=== PATIENT | female | born 1940 | race Caucasian/White ===

== ENCOUNTER → 2016-03-13 | Outpatient (CLI) | payer MEDICARE ==
--- NOTE | 2016-03-13 14:32 | US ---
EXAMINATION TYPE: US kidneys/renal and bladder DATE OF EXAM: 03/13/2016 2:06 PM COMPARISON: US in PACS abdomen June 25, 2015 CLINICAL HISTORY: N28.1 Cyst of Kidney. Known right kidney cyst EXAM MEASUREMENTS: Right Kidney: 11.6 x 3.9 x 4.2 cm Left Kidney: 11.2 x 4.0 x 4.5 cm TECHNOLOGIST IMPRESSION: wnl Right Kidney: Cyst lateral= 3.0 x 2.4 x 2.9 cm Left Kidney: wnl Bladder: wnl Bilateral Jets seen: Only left jet visualized There is no evidence for hydronephrosis at this point in time. No new masses are identified. The urinary bladder is anechoic. Distal left ureter jet is seen. Right jet is not clearly identified. IMPRESSION: Stable 3.0 cm simple appearing cyst right kidney.
--- NOTE | 2016-03-18 12:12 | P.ARTDOP ---
Arterial Doppler LOWER EXTREMITY ARTERIAL DOPPLER: DATE OF SERVICE: 03/13/2016 Reason for study: []. Doppler waveforms: Multiphasic throughout on the right. Waveforms not done on the left.. Pulse volume recording: Normal configuration of the right. Not done on the left.. Pressure gradients: None noted. Ankle-brachial indices: Greater than 1 bilaterally. Toe pressures: [] on the right, [] on the left Impression: Normal study as obtained. Lack of waveforms limited study..
== END | disposition home or self-care (01) ==
LOC: RADUSWWP 13:17
PROVIDERS: ATTEND Family Medicine
DX: N28.1 Cyst of kidney, acquired (principal)
CPT/HCPCS: 76770; 93923

== ENCOUNTER → 2016-08-26 | Outpatient (CLI) | payer MEDICARE ==
[2016-08-26 10:31] LABS: ALT 50 U/L (9-52); AST 35 U/L (14-36); Alkaline Phosphatase 151 U/L (38-126); Anion Gap 11 mmol/L; Blood Urea Nitrogen 24 mg/dL (7-17); Calcium 10.1 mg/dL (8.4-10.2); Carbon Dioxide 26 mmol/L (22-30); Chloride 105 mmol/L (98-107); Cholesterol 198 mg/dL (<200); Glucose 115 mg/dL (74-99); HDL Cholesterol 72 mg/dL (40-60); Non-African American GFR(MDRD) 53 (>60 ml/min/1.73 sqM); Sodium 142 mmol/L (137-145); Total Bilirubin 0.6 mg/dL (0.2-1.3); Total Protein 7.6 g/dL (6.3-8.2); Triglycerides 71 mg/dL (<150)
[2016-08-26 16:00] LABS: Urine Creatinine 75.2 mg/dL
== END | disposition home or self-care (01) ==
LOC: LABWHC1 09:25
PROVIDERS: ATTEND Internal Medicine Endocrinology, Diabetes & Metabolism
DX: E11.65 Type 2 diabetes mellitus with hyperglycemia (principal)
CPT/HCPCS: 36415; 80053; 80061; 82043; 82570

== ENCOUNTER → 2017-03-18 | Outpatient (CLI) | payer MEDICARE ==
[2017-03-18 10:44] LABS: ALT 41 U/L (9-52); AST 44 U/L (14-36); Albumin 4.1 g/dL (3.5-5.0); Alkaline Phosphatase 129 U/L (38-126); Anion Gap 12 mmol/L; Blood Urea Nitrogen 15 mg/dL (7-17); Calcium 10.1 mg/dL (8.4-10.2); Carbon Dioxide 28 mmol/L (22-30); Chloride 103 mmol/L (98-107); Cholesterol 186 mg/dL (<200); Glucose 198 mg/dL (74-99); HDL Cholesterol 60 mg/dL (40-60); LDL Cholesterol,Calculated 93 mg/dL (0-99); Sodium 143 mmol/L (137-145); Total Bilirubin 0.9 mg/dL (0.2-1.3); Total Protein 7.3 g/dL (6.3-8.2); Triglycerides 163 mg/dL (<150)
[2017-03-18 15:54] LABS: Hemoglobin A1C 8.5 % (4.0-6.0)
== END | disposition home or self-care (01) ==
LOC: LABWHC1 09:34
PROVIDERS: ATTEND Internal Medicine Endocrinology, Diabetes & Metabolism
DX: E11.65 Type 2 diabetes mellitus with hyperglycemia (principal)
CPT/HCPCS: 36415; 80053; 80061; 82043; 82570; 83036

== ENCOUNTER → 2017-04-01 | Outpatient (CLI) | payer MEDICARE ==
--- NOTE | 2017-04-01 13:46 | XR ---
EXAMINATION TYPE: XR chest 2V DATE OF EXAM: 04/01/2017 COMPARISON: NONE INDICATION: Acute bronchitis cough and congestion over week TECHNIQUE: Frontal and lateral views of the chest are obtained. FINDINGS: The heart size is normal. The pulmonary vasculature is normal. The lungs are clear. There is some hyperinflation and increased AP diameter. Early emphysematous ember nges should be considered. IMPRESSION: 1. No acute pulmonary process.
== END | disposition home or self-care (01) ==
LOC: RADXRMAIN 13:11
PROVIDERS: ATTEND Family Medicine
DX: J20.9 Acute bronchitis, unspecified (principal)
CPT/HCPCS: 71046

== ENCOUNTER → 2017-05-31 | Outpatient (CLI) | payer MEDICARE ==
--- NOTE | 2017-06-01 08:08 | US ---
EXAMINATION TYPE: US kidneys/renal and bladder DATE OF EXAM: 05/31/2017 COMPARISON: NONE CLINICAL HISTORY: N28.1 CYST OF KIDNEY. EXAM MEASUREMENTS: Right Kidney: 11.3 x 3.7 x 4.6 cm Left Kidney: 10.7 x 5.2 x 4.7 cm Right Kidney: cyst noted measuring 3.5 x 2.9 x 3.6 Left Kidney: No hydronephrosis or masses seen Bladder: not fully distended, patient felt like her bladder was full and needed to void Bilateral Jets seen: no There is no evidence for hydronephrosis at this point in time. No nephrolithiasis is seen. IMPRESSION: Simple appearing cyst right kidney.
== END | disposition home or self-care (01) ==
LOC: RADUSWWP 16:05
PROVIDERS: ATTEND Family Medicine
DX: N28.1 Cyst of kidney, acquired (principal)
CPT/HCPCS: 76770

== ENCOUNTER → 2017-09-16 | Outpatient (CLI) | payer MEDICARE ==
--- NOTE | 2017-09-16 15:25 | XR ---
EXAMINATION TYPE: XR lumbar spine 2 or 3V DATE OF EXAM: 09/16/2017 CLINICAL HISTORY: Back pain TECHNIQUE: Frontal and lateral images of the lumbar spine were obtained. COMPARISON: None FINDINGS: There are 6 lumbar type vertebral bodies identified. There is grade 1 anterolisthesis of L 4 on L5, likely due to extensive facet arthropathy. Vertebral body heights appear maintained. Multil evel moderate degenerative changes seen as endplate sclerosis, intervertebral disc space narrowing, a nterior osteophytes, and advanced facet arthropathy. Cholecystectomy clips are noted within the right upper quadrant. Visualized bowel is nondilated. Mild symmetric sclerosis of the sacroiliac joints ar e seen. The overlying soft tissue appears unremarkable. IMPRESSION: 1. No acute fracture is seen in the lumbar spine. 2. Grade 1 anterolisthesis of L4 on L5, likely due to advanced facet arthropathy. 3. Moderate multilevel degenerative changes of the lumbar spine with suspicion for multilevel neural foraminal narrowing that could be assessed with MRI.
== END | disposition home or self-care (01) ==
LOC: RADXRMAIN 13:59
PROVIDERS: ATTEND Family Medicine
DX: M43.16 Spondylolisthesis, lumbar region (principal); M47.816 Spondylosis without myelopathy or radiculopathy, lumbar region; M46.86 Other specified inflammatory spondylopathies, lumbar region; M25.552 Pain in left hip
CPT/HCPCS: 72100

== ENCOUNTER → 2017-09-23 | Outpatient (CLI) | payer MEDICARE ==
[2017-09-23 10:13] LABS: Albumin 4.1 g/dL (3.5-5.0); Potassium 5.6 mmol/L (3.5-5.1); Total Bilirubin 0.7 mg/dL (0.2-1.3); Total Protein 7.4 g/dL (6.3-8.2)
== END | disposition home or self-care (01) ==
LOC: LABWHC1 08:52
PROVIDERS: ATTEND Internal Medicine Endocrinology, Diabetes & Metabolism
DX: E11.65 Type 2 diabetes mellitus with hyperglycemia (principal)
CPT/HCPCS: 36415; 80053; 80061; 82043; 82570; 83036

== ENCOUNTER → 2018-02-18 | Outpatient (CLI) | payer MEDICARE ==
[2018-02-18 17:45] LABS: Albumin 4.4 g/dL (3.80-4.90); Albumin/Globulin Ratio 2.2 (1.20-2.10); Anion Gap 9.5 mmol/L (4.00-12.00); Calcium 9.7 mg/dL (8.7-10.3); Carbon Dioxide 22.5 mmol/L (21.6-31.8); LDL Cholesterol,Calculated 95.6 mg/dL (0.0-131.0); Potassium 5.5 mmol/L (3.5-5.5); Total Bilirubin 0.5 mg/dL (0.3-1.2); Total Protein 6.4 g/dL (6.2-8.2); VLDL Calculation 29.4 mg/dL (5.00-40.00)
== END | disposition home or self-care (01) ==
LOC: LABWHC1 09:39
PROVIDERS: ATTEND Internal Medicine Endocrinology, Diabetes & Metabolism
DX: E11.65 Type 2 diabetes mellitus with hyperglycemia (principal)
CPT/HCPCS: 36415; 80053; 80061; 83036

== ENCOUNTER → 2018-03-01 | Outpatient (CLI) | payer MEDICARE ==
--- NOTE | 2018-03-01 15:36 | XR ---
EXAMINATION TYPE: XR abdomen 2V DATE OF EXAM: 03/01/2018 COMPARISON: NONE HISTORY: Pain TECHNIQUE: One view abdominal series FINDINGS: The osseous structures are intact. The bowel gas pattern is nonspecific. Surgical clips in right upp er quadrant. Hypertrophic and degenerative change of the spine. Basilar consolidation is nonspecific. Arthropathy of the hips. IMPRESSION: 1. Nonspecific abdomen. Right basilar atelectasis favored over infiltrate correlate clinically.
== END | disposition home or self-care (01) ==
LOC: RADXRMAIN 14:20
PROVIDERS: ATTEND Physician Assistant Medical
DX: K59.09 Other constipation (principal)
CPT/HCPCS: 74019

== ENCOUNTER → 2018-05-16 | Outpatient (CLI) | payer MEDICARE ==
[2018-05-16 16:35] LABS: Albumin 4.4 g/dL (3.80-4.90); Albumin/Globulin Ratio 1.63 (1.60-3.17); Anion Gap 6.3 mmol/L (4.00-12.00); Calcium 10.1 mg/dL (8.7-10.3); Carbon Dioxide 28.7 mmol/L (21.6-31.8); Globulin 2.7 g/dL (1.6-3.3); Magnesium 1.8 mg/dL (1.5-2.4); Potassium 5.5 mmol/L (3.5-5.5); Total Bilirubin 0.8 mg/dL (0.3-1.2); Total Protein 7.1 g/dL (6.2-8.2)
== END | disposition home or self-care (01) ==
LOC: LABWHC1 09:47
PROVIDERS: ATTEND Internal Medicine Endocrinology, Diabetes & Metabolism
DX: E11.65 Type 2 diabetes mellitus with hyperglycemia (principal); G47.62 Sleep related leg cramps
CPT/HCPCS: 36415; 80053; 83036; 83735; 84443

== ENCOUNTER → 2018-05-26 | Outpatient (CLI) | payer MEDICARE ==
--- NOTE | 2018-05-27 10:47 | BD ---
EXAMINATION TYPE: Axial Bone Density DATE OF EXAM: 05/26/2018 COMPARISON: 12.13.2015 CLINICAL HISTORY: Postmenopausal female. Osteoporosis screening. Height: 62 Weight: 206.6 FRAX RISK QUESTIONS: Alcohol (3 or more units per day): no Family History (Parent hip fracture): yes Glucocorticoids (More than 3mos): no (Ex: prednisone, prednisolone, methylprednisolone, dexamethasone, and hydrocortisone). History of Fracture in Adulthood: yes Secondary Osteoporosis: 1. Type 1 Diabetes: no 2. Hyperthyroidism: no 3. Menopause before 45: no 4. Malnutrition: no 5. Chronic liver disease: no Rheumatoid Arthritis: no Current Tobacco Use: no RISK FACTORS HISTORY OF: Family History of Osteoporosis: yes Active: sometimes Diet low in dairy products/other sources of calcium: yes Postmenopausal woman: age 54 Lost more than 2 inches in height since high school: no MEDICATIONS: type 2 diabetic meds, omeprazole, water pill, vitamins, losartin Additional History: EXAM MEASUREMENTS: Bone mineral densitometry was performed using the [employer]. Bone mineral density as measured about the Lumbar spine is: ----- L1-L4(G/cm2): 1.284 T Score Values are as follows: ----- L2: 0.1 ----- L3: 1.1 ----- L4: 0.6 ----- L1-L4: 0.9 Bone mineral density has: decreased -3.4 % since study of: 12.13.2015 Bone mineral density about the R hip (g/cm2): 0.866 Bone mineral density about the L hip (g/cm2): 0.849 T Score values are as follows: -----R Neck: -1.2 -----L Neck: -1.4 -----R Total: -0.4 -----L Total: -0.7 Bone mineral density has: decreased -7.9 % since study of: 12.13.2015 IMPRESSION: Osteopenia (T Score between -2.5 and -1). There is slightly increased risk of fracture and the patient may be considered for treatment. Re-Screen 2-5 years. NOTE: T-SCORE=SD OF THE YOUNG ADULT MEAN.
== END | disposition home or self-care (01) ==
LOC: RADBDWWP 14:10
PROVIDERS: ATTEND Family Medicine
DX: M85.80 Other specified disorders of bone density and structure, unspecified site (principal); Z78.0 Asymptomatic menopausal state
CPT/HCPCS: 77080

== ENCOUNTER → 2018-12-30 | Outpatient (CLI) | payer MEDICARE ==
[2018-12-30 16:25] LABS: African American GFR (CKD) 50.1 (60.0-200.0); Albumin 4.4 g/dL (3.80-4.90); Albumin/Globulin Ratio 1.83 (1.60-3.17); Anion Gap 6.2 mmol/L (4.00-12.00); BUN/Creat Ratio 16.67 Ratio (12.00-20.00); Calcium 10.1 mg/dL (8.7-10.3); Carbon Dioxide 27.8 mmol/L (21.6-31.8); Chol/HDL Ratio 2.71; Globulin 2.4 g/dL (1.6-3.3); LDL Cholesterol,Calculated 93.4 mg/dL (0.0-131.0); Non-African American GFR(CKD) 43.3 (60.0-200.0); Potassium 5.7 mmol/L (3.5-5.5); Total Bilirubin 0.5 mg/dL (0.3-1.2); Total Protein 6.8 g/dL (6.2-8.2); VLDL Calculation 22.6 mg/dL (5.00-40.00)
== END | disposition home or self-care (01) ==
LOC: LABWHC1 10:27
PROVIDERS: ATTEND Orthopaedic Surgery
DX: S72.435D Nondisplaced fracture of medial condyle of left femur, subsequent encounter for closed fracture with routine healing (principal); S83.242D Other tear of medial meniscus, current injury, left knee, subsequent encounter; S83.282D Other tear of lateral meniscus, current injury, left knee, subsequent encounter; S83.412D Sprain of medial collateral ligament of left knee, subsequent encounter; E55.9 Vitamin D deficiency, unspecified; M17.12 Unilateral primary osteoarthritis, left knee; I10 Essential (primary) hypertension; Z68.38 Body mass index [BMI] 38.0-38.9, adult; E11.65 Type 2 diabetes mellitus with hyperglycemia
CPT/HCPCS: 36415; 80053; 80061; 82306; 83036; 84443

== ENCOUNTER → 2019-09-29 | Outpatient (CLI) | payer MEDICARE ==
--- NOTE | 2019-09-29 19:00 | ECHOF ---
Referral Reason:R60.9 edema, R06.02 Shortness of breath MEASUREMENTS -------- HEIGHT: 154.9 cm WEIGHT: 96.2 kg BP: RVIDd: 2.9 cm (< 3.3) IVSd: 1.2 cm (0.6 - 1.1) LVIDd: 3.0 cm (3.9 - 5.3) LVPWd: 1.4 cm (0.6 - 1.1) IVSs: 1.3 cm LVIDs: 2.7 cm LVPWs: 1.6 cm LA Diam: 3.3 cm (2.7 - 3.8) LAESV Index (A-L): 20.24 ml/m Ao Diam: 3.0 cm (2.0 - 3.7) AV Cusp: 1.8 cm (1.5 - 2.6) LA Diam: 3.8 cm (2.7 - 3.8) MV EXCURSION: 17.007 mm (> 18.000) MV EF SLOPE: 118 mm/s (70 - 150) EPSS: 0.2 cm MV E Joel: 0.60 m/s MV DecT: 232 ms MV A Joel: 1.07 m/s MV E/A Ratio: 0.56 RAP: 5.00 mmHg RVSP: 30.70 mmHg FINDINGS -------- Sinus rhythm. This was a technically adequate study. The left ventricular size is normal. There is mild concentric left ventricular hypertrophy. Overa ll left ventricular systolic function is normal with, an EF between 55 - 60 %. The right ventricle is normal in size. The left atrial size is normal. The right atrial size is normal. There is mild aortic valve sclerosis. There is no evidence of aortic regurgitation. Mild mitral annular calcification present. Mild mitral regurgitation is present. Mild tricuspid regurgitation present. Right ventricular systolic pressure is normal at < 35 mmHg. There is no pulmonic regurgitation present. The aortic root size is normal. Echo free space indicative of a pericardial fat pad. CONCLUSIONS -------- 1. The left ventricular size is normal. 2. There is mild concentric left ventricular hypertrophy. 3. Overall left ventricular systolic function is normal with, an EF between 55 - 60 %. 4. The left atrial size is normal. 5. The right atrial size is normal. 6. There is mild aortic valve sclerosis. 7. Mild mitral annular calcification present. 8. Mild mitral regurgitation is present. 9. Mild tricuspid regurgitation present. FINISHER SCREWDOWN: Kasey Mclean RDCS
== END | disposition home or self-care (01) ==
LOC: RADECHMAIN 13:53
PROVIDERS: ATTEND Family Medicine
DX: I08.1 Rheumatic disorders of both mitral and tricuspid valves (principal)
CPT/HCPCS: 93306

== ENCOUNTER 2020-04-17 11:51 | Emergency (ER) | payer MEDICARE, OTHER ==
[2020-04-17 12:05] VITALS: RESP 18
[2020-04-17] MEDS ORDERED: ACETAMINOPHEN TAB 500 MG TAB PO STA (12:43)
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
[2020-04-17 21:49] VITALS: BP 169/95; PULSE 97; TEMP 98
== END 2020-04-17 14:31 | disposition home or self-care (01) ==
LOC: EC 11:51
DX: S52.514A Nondisplaced fracture of right radial styloid process, initial encounter for closed fracture (principal); S62.115A Nondisplaced fracture of triquetrum [cuneiform] bone, left wrist, initial encounter for closed fracture; S20.211A Contusion of right front wall of thorax, initial encounter; E11.9 Type 2 diabetes mellitus without complications; I10 Essential (primary) hypertension; G20 Parkinson's disease; Z79.4 Long term (current) use of insulin; Z79.899 Other long term (current) drug therapy; Z88.2 Allergy status to sulfonamides; Z88.5 Allergy status to narcotic agent; Z88.8 Allergy status to other drugs, medicaments and biological substances; Z91.013 Allergy to seafood; Z91.040 Latex allergy status; Z90.49 Acquired absence of other specified parts of digestive tract; Z90.710 Acquired absence of both cervix and uterus; Z98.51 Tubal ligation status; Z91.041 Radiographic dye allergy status; V43.52XA Car driver injured in collision with other type car in traffic accident, initial encounter; Y92.410 Unspecified street and highway as the place of occurrence of the external cause
CPT/HCPCS: 29125; 99284

== ENCOUNTER 2021-07-31 18:46 | Inpatient (IN) | payer MEDICARE ==
[2021-07-31] MEDS ORDERED: fentaNYL (PF) 50 MCG/ML 2 ML AMP IVP STA (18:55)
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
[2021-07-31] MEDS ORDERED: fentaNYL (PF) 50 MCG/ML 2 ML AMP IV STA (19:41)
[2021-07-31] MEDS ORDERED: LORazepam 2 MG/ML INJ IV STA (19:41)
[2021-07-31 20:36] LABS: Glucose,Whole Blood 207 mg/dL (70-110)
--- NOTE | 2021-07-31 20:36 | XR ---
EXAMINATION TYPE: XR shoulder complete BILAT DATE OF EXAM: 07/31/2021 7:38 PM INDICATION: Patient age:Female; 80 years old; Reason for study: Trauma; COMPARISON: None TECHNIQUE: The right shoulder was examined in the internal/external and axillary views. FINDINGS: Right: Acute fracture of the right humerus greater tuberosity. Anterior inferior dislocation also fel t to be present. Left: Comminuted fractures of the proximal humerus with suspected intra-articular extension. IMPRESSION: 1. Suspected anterior inferior right humerus dislocation with Hill-Sachs fracture with a large bony fragment of right greater tuberosity. 2. Left proximal humerus fracture with suspected intra-articular extension.
[2021-07-31] MEDS ORDERED: NALOXONE 0.4 MG/ML 1 ML VIAL IV PRN (21:19)
[2021-07-31] MEDS ORDERED: ONDANSETRON 4 MG/2 ML VIAL IVP PRN (21:19)
--- NOTE | 2021-07-31 21:40 | XR ---
EXAMINATION TYPE: XR femur LT, XR Hip LT and AP Pelvis DATE OF EXAM: 07/31/2021 8:59 PM INDICATION: Patient age:Female; 80 years old; Reason for study: Trauma; COMPARISON: None TECHNIQUE: The left femur was examined in frontal, lateral and oblique. The left hip was evaluated in frontal and lateral views with AP of the pelvis. FINDINGS: Distal left femur spiral comminuted fracture without intra-articular extension. Predominant ly involves the distal diaphysis and metadiaphysis portions. There is approximately 4.4 cm of shorten ing/displacement with anterior lateral displacement. There is mild soft tissue swelling. There is osteoarthritic changes of the hips joint space narrowing and osteophyte formation. Multileve l disc degeneration changes of the spine. Pelvic fluid present. Nonobstructive bowel gas pattern. IMPRESSION: 1. Acute left distal femur spiral comminuted fracture with shortening and anterior lateral displacem ent. 2. Moderate bilateral osteoarthrosis of the hips.
--- NOTE | 2021-07-31 21:43 | XR ---
EXAMINATION TYPE: XR chest 1V DATE OF EXAM: 07/31/2021 8:59 PM COMPARISON: Chest radiographs from 03/30/2019 TECHNIQUE: XR chest 1V Frontal view of the chest. CLINICAL INDICATION:Female, 80 years old with history of Fall; FINDINGS: Lungs/Pleura: There is no evidence of pleural effusion, focal consolidation, or pneumothorax. Pulmonary vascularity: Unremarkable. Heart/mediastinum: Cardiomediastinal silhouette is prominent in size. Musculoskeletal: No acute osseous pathology. IMPRESSION: No acute cardiopulmonary disease/process.
[2021-07-31] MEDS: HYDROmorphone 1 MG/ML 1 ML SYRINGE IVP PRN (22:45)
[2021-07-31] MEDS: SODIUM CHLORIDE 0.9% 1,000 ML IV SCH (22:55)
[2021-07-31 23:11] LABS: Basophils # (A) 0.1 k/uL (0-0.2); Basophils % (A) 0 %; Eosinophils % (A) 0 %; HCT 32.3 % (34.0-46.0); HGB 10.5 gm/dL (11.4-16.0); Hypochromasia Slight; Lymphocytes % (A) 5 %; MCH 27.6 pg (25.0-35.0); MCHC 32.4 g/dL (31.0-37.0); Mean Platelet Volume 8.1; Monocytes # (A) 0.5 k/uL (0-1.0); Monocytes % (A) 3 %; Neutrophils # (A) 17.5 k/uL (1.3-7.7); Neutrophils % (A) 91 %; Platelet Count 181 k/uL (150-450); RDW 13.6 % (11.5-15.5); WBC 19.2 k/uL (3.8-10.6)
[2021-07-31 23:22] LABS: Albumin 3.6 g/dL (3.5-5.0); Calcium 8.7 mg/dL (8.4-10.2); Magnesium 1.3 mg/dL (1.6-2.3); Potassium 4.3 mmol/L (3.5-5.1); Total Bilirubin 0.5 mg/dL (0.2-1.3); Total Protein 6.5 g/dL (6.3-8.2)
--- NOTE | 2021-08-01 00:18 | CT ---
EXAMINATION TYPE: CT femur LT wo con DATE OF EXAM: 07/31/2021 COMPARISON: None HISTORY: FALL, FX CT DLP: 1260.1 mGycm Automated exposure control for dose reduction was used. Images obtained from the mid ileum to the proximal tibia with no contrast. There is oblique fracture distal shaft of the femur with comminution. There is 3.5 similar anterior d isplacement of the distal fragment. The knee joint is anatomic. Hip joint is anatomic. There is mild acetabular spurring. IMPRESSION: Acute displaced comminuted fracture of the distal shaft of the femur as above.
--- NOTE | 2021-08-01 00:23 | CT ---
EXAMINATION TYPE: CT shoulder LT wo con DATE OF EXAM: 07/31/2021 COMPARISON: None. HISTORY: FALL ,FX CT DLP: 1180.6 mGycm Automated exposure control for dose reduction was used. Images obtained from the top of the shoulder to the mid shaft of the humerus with no contrast. There is impacted comminuted fracture of the left humeral neck. No dislocation. The scapula appears i ntact. The AC joint is intact. Visualized clavicle is intact. IMPRESSION: Acute mildly impacted humeral neck fracture with comminution.
--- NOTE | 2021-08-01 00:33 | CT ---
EXAMINATION TYPE: CT shoulder RT wo con DATE OF EXAM: 07/31/2021 COMPARISON: None HISTORY: FALL ,FX CT DLP: 1180.6 mGycm Automated exposure control for dose reduction was used. Images obtained from the top of the shoulder to the mid humerus without contrast. There is acute impa cted fracture of the right humeral neck. There is large chip fracture of the greater tuberosity of th e humerus without displacement. No dislocation at the glenohumeral joint. The scapula appears intact. The right upper ribs appear intact. AC joint is intact. IMPRESSION: Acute impacted right humeral neck fracture with comminution.
--- NOTE | 2021-08-01 01:33 | P.CONS ---
History of Present Illness - Reason for Consult Consult date: 07/31/21 - History of Present Illness The patient is an 80-year-old female with a PMH of type II DM, Parkinson's, and hypertension who presents to the emergency room after a fall. The patient reports that she was doing to dinner with her family when she tripped on an uneven surface at a restaurant, landing on her left shoulder. She reports severe pain in both of her shoulders immediately after the fall. She also reports injuring her left knee during this fall. Denied losing consciousness or head trauma. Reports that her pain is now a 2 out of 10, throughout her shoulders and her knee. Shoulder CTs in the emergency room revealed bilateral shoulder fractures as well as a left distal femur fracture. Chest x-ray was unr emarkable. Laboratory evaluation was remarkable for WBC count of 19.2, troponin 0.155, magnesium 1.3, glucose of 218. Patient denied experiencing chest discomfort cautions with, fever, chills, cough, nausea, vomiting, abdominal pain, diarrhea. Review of systems: Pertinent positives and negatives as discussed in HPI, a complete review of systems was performed and all other systems are negative. Physical examination: General: non toxic, no distress, appears at stated age, obese Derm: no unusual rashes/lesions, warm Head: atraumatic, normocephalic, symmetric Eyes: EOMI, no lid lag, anicteric sclera, pupils equal round reactive to light ENT: Nose and ears atraumatic Neck: No cervical lymphadenopathy, trachea midline, supple Mouth: no lip lesion, mucus membranes moist Cardiovascular: S1S2 reg, no murmur, positive dorsalis pedis pulse bilateral, no edema Lungs: CTA bilateral, no rhonchi, no rales, no accessory muscle use Abdominal: soft, nontender to palpation, no guarding Ext: No gross muscle atrophy, no contractures, tenderness noted of bilateral shoulders and her left knee, unable to assess strength as patient unwilling to move her arms and legs due to pain Neuro: CN II-XI grossly intact, no gross focal neuro deficits Psych: Alert, oriented, appropriate affect Assessment/plan Elevated troponin -Patient denied chest discomfort or shortness of breath -Suspected secondary to ongoing acute stressor -Obtain cardiology consult for cardiac surgical clearance -Cardiac monitoring Hypomagnesemia -Replace and monitor Leukocytosis -No signs of active infection at this time -Likely due to acute stressor Chronic conditions: Type II DM, hypertension, Parkinson's -Continue with home meds -Insulin sliding scale blood glucose monitoring Bilateral shoulder fractures with left distal femur fracture admitted -Defer management including pain control and DVT prophylaxis to the surgical service Past Medical History Past Medical History: Diabetes Mellitus, Hypertension Additional Past Medical History / Comment(s): Parkinson's History of Any Multi-Drug Resistant Organisms: None Reported Past Surgical History: Cholecystectomy, Hysterectomy, Tubal Ligation Past Psychological History: No Psychological Hx Reported Smoking Status: Never smoker Past Alcohol Use History: None Reported Past Drug Use History: None Reported - Past Family History Mother Family Medical History: Hyperlipidemia Medications and Allergies Home Medications Medication Instructions Recorded Confirmed Type Ascorbic Acid [Vitamin C] 500 mg PO DAILY 04/17/20 07/31/21 History Calcium Carbonate [Calcium] 600 mg PO PC-SUPPER 04/17/20 07/31/21 History Carbidopa-Levodopa 25-100 mg 1 tab PO DAILY@1400 04/17/20 07/31/21 History [Sinemet 25-100] Cholecalciferol [Vitamin D3 (25 25 mcg PO PC-SUPPER 04/17/20 07/31/21 History Mcg = 1000 Iu)] Glimepiride [Amaryl] 4 mg PO W/BRKFST 04/17/20 07/31/21 History Insulin Degludec [Tresiba 24 - 30 units SQ HS 04/17/20 07/31/21 History Flextouch U-100] Losartan Potassium 100 mg PO AC-BRKFST 04/17/20 07/31/21 History Omeprazole 20 mg PO DAILY 04/17/20 07/31/21 History Vitamin B Complex 1 cap PO DAILY 04/17/20 07/31/21 History metFORMIN HCL [Glucophage] 500 mg PO PC-BID 04/17/20 07/31/21 History sitaGLIPtin [Januvia] 50 mg PO PC-SUPPER 04/17/20 07/31/21 History Ascorbic Acid [Vitamin C] 500 mg PO DAILY 07/31/21 07/31/21 History Fish Oil/Dha/Epa [Fish Oil 1,200 1 cap PO PC-SUPPER 07/31/21 07/31/21 History mg Fish Oil] Spironolactone [Aldactone] 25 mg PO DAILY 07/31/21 07/31/21 History Allergies Allergy/AdvReac Type Severity Reaction Status Date / Time acetaminophen [From Vicodin] Allergy Rash/Hives Verified 07/31/21 22:28 codeine Allergy Rash/Hives Verified 07/31/21 22:28 hydrocodone [From Vicodin] Allergy Rash/Hives Verified 07/31/21 22:28 iodine Allergy Anaphylaxis Verified 07/31/21 22:28 latex Allergy Rash/Hives Verified 07/31/21 22:28 pioglitazone [From Actos] Allergy Rash/Hives Verified 07/31/21 22:28 shellfish derived [Shellfish] Allergy Rash/Hives Verified 07/31/21 22:28 Sulfa (Sulfonamide Allergy Rash/Hives Verified 07/31/21 22:28 Antibiotics) Physical Exam Vitals: Vital Signs Temp Pulse Resp BP Pulse Ox 07/31/21 22:00 90 186/87 07/31/21 20:02 88 219/98 07/31/21 18:52 97.9 F 60 18 147/73 95 Intake and Output 07/31/21 07/31/21 08/01/21 14:59 22:59 06:59 Other: Weight 90.718 kg Results CBC & Chem 7: 07/31/21 22:55 07/31/21 22:55 Labs: Abnormal Lab Results - Last 24 Hours (Table) 07/31/21 07/31/21 07/31/21 Range/Units 20:16 22:55 22:55 WBC 19.2 H (3.8-10.6) k/uL Hgb 10.5 L (11.4-16.0) gm/dL Hct 32.3 L (34.0-46.0) % Neutrophils # 17.5 H (1.3-7.7) k/uL Glucose 218 H (74-99) mg/dL POC Glucose (mg/dL) 207 H (70-110) mg/dL Magnesium 1.3 L (1.6-2.3) mg/dL
[2021-08-01] MEDS: HYDROmorphone 1 MG/ML 1 ML SYRINGE IVP PRN ×3 (01:35→21:41)
[2021-08-01] MEDS: MAGNESIUM SULFATE-D5W PMX 1 GM in DEXTROSE/WATER 1 100ML.BAG IVPB SCH ×2 (03:25→04:50)
[2021-08-01] MEDS: SODIUM CHLORIDE 0.9% 1,000 ML IV SCH ×3 (03:28→21:44)
[2021-08-01 07:44] LABS: African American GFR (CKD) 61 (>60 ml/min/1.73 sqM); Anion Gap 8 mmol/L; Blood Urea Nitrogen 19 mg/dL (7-17); Calcium 8.4 mg/dL (8.4-10.2); Carbon Dioxide 23 mmol/L (22-30); Chloride 107 mmol/L (98-107); Glucose 273 mg/dL (74-99); Magnesium 2.1 mg/dL (1.6-2.3); Non-African American GFR(CKD) 53 (>60 ml/min/1.73 sqM); Sodium 138 mmol/L (137-145)
[2021-08-01 07:49] LABS: Glucose,Whole Blood 264 mg/dL (70-110)
[2021-08-01 07:50] LABS: INR 1.1 (<1.2); Partial Thromboplastin Time 22.2 sec (22.0-30.0); Prothrombin Time 11.5 sec (9.0-12.0)
[2021-08-01] MEDS ORDERED: SPIRONOLACTONE 25 MG TAB PO SCH (09:00)
--- NOTE | 2021-08-01 09:48 | CA ---
Transthoracic Echo Report Name: Amy Sevilla Age: 80 Gender: F : 1940 Exam Date: 08/01/2021 07:55 Exam Location: [facility] Ht (in): 62 Wt (lb): 200 Ordering Physician: Suzanne Arana Attending/Referring Phys: Advertising Strategist Renate Fregoso RDCS Procedure CPT: Indications: elevated troponin. LV function Cardiac Hx: Technical Quality: Fair Contrast 1: Total Dose (mL): Contrast 2: Total Dose (mL): MEASUREMENTS (Male / Female) Normal Values 2D ECHO LV Diastolic Diameter PLAX 2.7 cm 4.2 - 5.9 / 3.9 - 5.3 cm LV Systolic Diameter PLAX 1.9 cm IVS Diastolic Thickness 1.3 cm 0.6 - 1.0 / 0.6 - 0.9 cm LVPW Diastolic Thickness 1.0 cm 0.6 - 1.0 / 0.6 - 0.9 cm LV Relative Wall Thickness 0.9 RV Internal Dim ED PLAX 3.2 cm LA Systolic Diameter LX 3.2 cm 3.0 - 4.0 / 2.7 - 3.8 cm LA Volume 49.0 cm??? 18 - 58 / 22 - 52 cm??? M-MODE Aortic Root Diameter MM 3.1 cm MV E Point Septal Separation 0.2 cm AV Cusp Separation MM 1.8 cm DOPPLER AV Peak Velocity 141.3 cm/s AV Peak Gradient 8.0 mmHg MV Area PHT 3.4 cm??? Mitral E Point Velocity 85.8 cm/s Mitral A Point Velocity 110.9 cm/s Mitral E to A Ratio 0.8 MV Deceleration Time 220.4 ms TR Peak Velocity 334.6 cm/s TR Peak Gradient 44.8 mmHg Right Ventricular Systolic Press 49.8 mmHg FINDINGS Left Ventricle Left ventricular ejection fraction is estimated at 55-60 %. Left ventricular cavity size normal. Mild concentric left ventricular hypertrophy. Right Ventricle Normal right ventricular size and function. Moderate pulmonary hypertension. Right Atrium Normal right atrial size. Left Atrium Normal left atrial size. No evidence for an atrial septal defect. Mitral Valve Mitral annular calcification. Mitral valve thickened. Mild mitral regurgitation. Aortic Valve Aortic valve sclerosis. Trileaflet aortic valve. No aortic valve stenosis or regurgitation. Tricuspid Valve Mild tricuspid regurgitation. Pulmonic Valve Structurally normal pulmonic valve. Pericardium Normal pericardium. No pericardial effusion. Aorta Normal size aortic root and proximal ascending aorta. CONCLUSIONS Normal LV size and systolic function without any segmental wall motion abnormalities Elevated RVSP Mild tricuspid and mitral regurgitation Previewed by: Dr. Enzo Jorge MD (Electronically Signed) Final Date: 01 August 2021 09:47
--- NOTE | 2021-08-01 10:27 | P.CRDCN ---
History of Present Illness History of present illness: HISTORY OF PRESENTING ILLNESS This is a pleasant 80-year-old female past medical history significant for hypertension, diabetes, Parkinson's disease. 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 We have been asked to see in consultation for elevated troponin. Patient presents emergency department after a mechanical fall at home. She reports that she was going to his inner with her family, she tripped on uneven surface and fell landing on her left shoulder. Family was there with her, she was on the ground for about 5 minutes. Her increased pain in her shoulders and left knee she presented to the emergency department via EMS. CT scans revealed right humeral neck fracture, left mildly impacted humeral neck fracture and acute displaced left femur fracture. Orthopedics has been consulted. She denies any symptoms prior or after the fall. She denies chest pain, shortness of breath, lightheadedness, dizziness, palpitations, nausea, vomiting, near syncope. She denies any consciousness. She denies any history of CAD, [place], stroke. She denies tobacco use. DIAGNOSTICS EKG reveals sinus tachycardia, HR 103, no significant ST-T wave abnormalities to suggest ischemia Troponins were elevated at 0.15, 0.23, sodium 138, potassium 5.0, BUN 19, serum creatinine 1.01, magnesium 2.1, WBC 19.2, and globin 10.5, platelets 181 Chest xray no acute cardiopulmonary process Echocardiogram revealed EF 5560 percent, mild concentric LVH, moderate pulmonary hypertension, mild tricuspid and mild mitral regurgitation, RVSP 49 mmHg Current home cardiac medications include spironolactone 25 mg daily, losartan 100 mg daily REVIEW OF SYSTEMS At the time of my exam: CONSTITUTIONAL: Denies fever or chills. CARDIOVASCULAR: Denies chest pain, shortness of breath, orthopnea, PND or palpitations. RESPIRATORY: Denies cough. GASTROINTESTINAL: Denies abdominal pain, diarrhea, constipation, nausea or vomiting. MUSCULOSKELETAL: Denies myalgias. NEUROLOGIC: Denies numbness, tingling, headacbe or weakness. ENDOCRINE: Denies fatigue, weight change, polydipsia or polyurina. GENITOURINARY: Denies burning, hematuria or urgency with micturation. HEMATOLOGIC: Denies history of anemia or bleeding. PHYSICAL EXAMINATION Blood pressure 165/70, heart rate 101, afebrile, oxygen saturations 95% on 2 L nasal cannula CONSTITUTIONAL: No apparent distress. HEENT: Head is normocephalic. Pupils are equal, round. Sclerae anicteric. Mucous membranes of the mouth are moist. No JVD. No carotid bruit. CHEST EXAMINATION: Lungs are clear to auscultation. No chest wall tenderness is noted on palpation or with deep breathing. HEART EXAMINATION: Regular rate and rhythm. S1, S2 heard. No murmurs, gallops or rub. ABDOMEN: Soft, nontender. Positive bowel sounds. EXTREMITIES: 2+ peripheral pulses, no lower extremity edema and no calf tenderness. NEUROLOGIC EXAMINATION: Patient is awake, alert and oriented x3. ASSESSMENT Elevated troponin, unclear etiology at this time Mechanical fall Bilateral humeral neck fractures Left femur fracture Hypertension Type 2 Diabetes Parkinson's disease PLAN Echocardiogram obtained and reviewed, revealed EF 55-60% with no significant wall motion or valvular abnormalities, elevated RSVP We will check CK Start atorvastatin 40mg daily Start metoprolol tartrate 50mg BID Continue home Losartan Patient is at moderate to high risk for sugery. Patient is not able to perform >4 METs levels of activity. She does not have any acute cardiac conditions at this time. Patient is hemodynamically stable. She does not have any chest pain or shortness of breath. There are no absolute contraindications to undergo surgery at this time. Further recommendations based on clinical course Nurse practitioner note has been reviewed by physician. Signing provider agrees with the documented findings, assessment, and plan of care. Past Medical History Past Medical History: Diabetes Mellitus, Hypertension Additional Past Medical History / Comment(s): Parkinson's History of Any Multi-Drug Resistant Organisms: None Reported Past Surgical History: Cholecystectomy, Hysterectomy, Tubal Ligation Additional Past Surgical History / Comment(s): Cataract surgery Past Anesthesia/Blood Transfusion Reactions: No Reported Reaction Past Psychological History: No Psychological Hx Reported Smoking Status: Never smoker Past Alcohol Use History: None Reported Past Drug Use History: None Reported - Past Family History Mother Family Medical History: Hyperlipidemia Medications and Allergies Home Medications Medication Instructions Recorded Confirmed Type Ascorbic Acid [Vitamin C] 500 mg PO DAILY 04/17/20 07/31/21 History Calcium Carbonate [Calcium] 600 mg PO PC-SUPPER 04/17/20 07/31/21 History Carbidopa-Levodopa 25-100 mg 1 tab PO DAILY@1400 04/17/20 07/31/21 History [Sinemet 25-100] Cholecalciferol [Vitamin D3 (25 25 mcg PO PC-SUPPER 04/17/20 07/31/21 History Mcg = 1000 Iu)] Glimepiride [Amaryl] 4 mg PO W/BRKFST 04/17/20 07/31/21 History Insulin Degludec [Tresiba 24 - 30 units SQ HS 04/17/20 07/31/21 History Flextouch U-100] Losartan Potassium 100 mg PO AC-BRKFST 04/17/20 07/31/21 History Omeprazole 20 mg PO DAILY 04/17/20 07/31/21 History Vitamin B Complex 1 cap PO DAILY 04/17/20 07/31/21 History metFORMIN HCL [Glucophage] 500 mg PO PC-BID 04/17/20 07/31/21 History sitaGLIPtin [Januvia] 50 mg PO PC-SUPPER 04/17/20 07/31/21 History Ascorbic Acid [Vitamin C] 500 mg PO DAILY 07/31/21 07/31/21 History Fish Oil/Dha/Epa [Fish Oil 1,200 1 cap PO PC-SUPPER 07/31/21 07/31/21 History mg Fish Oil] Spironolactone [Aldactone] 25 mg PO DAILY 07/31/21 07/31/21 History Allergies Allergy/AdvReac Type Severity Reaction Status Date / Time acetaminophen [From Vicodin] Allergy Rash/Hives Verified 07/31/21 22:28 codeine Allergy Rash/Hives Verified 07/31/21 22:28 hydrocodone [From Vicodin] Allergy Rash/Hives Verified 07/31/21 22:28 iodine Allergy Anaphylaxis Verified 07/31/21 22:28 latex Allergy Rash/Hives Verified 07/31/21 22:28 pioglitazone [From Actos] Allergy Rash/Hives Verified 07/31/21 22:28 shellfish derived [Shellfish] Allergy Rash/Hives Verified 07/31/21 22:28 Sulfa (Sulfonamide Allergy Rash/Hives Verified 07/31/21 22:28 Antibiotics) Physical Exam Vitals: Vital Signs Temp Pulse Pulse Resp BP BP Pulse Ox 08/01/21 02:00 97.1 F L 101 H 20 165/70 95 08/01/21 01:00 88 189/74 98 07/31/21 22:00 90 186/87 07/31/21 20:02 88 219/98 06/23/22 18:52 97.9 F 60 18 147/73 95 Intake and Output 07/31/21 08/01/21 08/01/21 22:59 06:59 14:59 Intake Total 0 Output Total 200 Balance -200 Intake: Oral 0 Output: Urine 200 Other: Weight 90.718 kg Results 07/31/21 22:55 08/01/21 07:05 Cardiac Enzymes 07/31/21 07/31/21 08/01/21 Range/Units 22:55 22:55 07:05 AST 32 (14-36) U/L Troponin I 0.155 H* 0.232 H* (0.000-0.034) ng/mL Coagulation 08/01/21 Range/Units 07:05 PT 11.5 (9.0-12.0) sec APTT 22.2 (22.0-30.0) sec CBC 07/31/21 Range/Units 22:55 WBC 19.2 H (3.8-10.6) k/uL RBC 3.80 (3.80-5.40) m/uL Hgb 10.5 L (11.4-16.0) gm/dL Hct 32.3 L (34.0-46.0) % Plt Count 181 (150-450) k/uL Comprehensive Metabolic Panel 07/31/21 08/01/21 Range/Units 22:55 07:05 Sodium 139 138 (137-145) mmol/L Potassium 4.3 5.0 (3.5-5.1) mmol/L Chloride 104 107 (98-107) mmol/L Carbon Dioxide 27 23 (22-30) mmol/L BUN 15 19 H (7-17) mg/dL Creatinine 0.91 1.01 (0.52-1.04) mg/dL Glucose 218 H 273 H (74-99) mg/dL Calcium 8.7 8.4 (8.4-10.2) mg/dL AST 32 (14-36) U/L ALT 15 (4-34) U/L Alkaline Phosphatase 113 (38-126) U/L Total Protein 6.5 (6.3-8.2) g/dL Albumin 3.6 (3.5-5.0) g/dL Current Medications Generic Name Dose Route Start Last Admin Trade Name Freq PRN Reason Stop Dose Admin Atorvastatin Calcium 40 mg 08/01/21 09:00 Atorvastatin 40 Mg Tab PO DAILY [facility] Carbidopa/Levodopa 1 each 08/01/21 14:00 Carbidopa-Levodopa 25-100 Mg 1 Each Tab PO DAILY@1400 [facility] Heparin Sodium (Porcine) 5,000 unit 08/01/21 09:00 Heparin Sodium,Porcine/Pf 5,000 Unit/0.5 Ml Syringe SQ Q12HR [facility] Hydromorphone HCl 1 mg 07/31/21 21:19 08/01/21 01:35 Hydromorphone 1 Mg/Ml 1 Ml Syringe IVP 1 mg Q3HR PRN Administration Moderate Pain Sodium Chloride 1,000 mls @ 130 mls/hr 07/31/21 21:30 08/01/21 03:28 Saline 0.9% IV 130 mls/hr .[id number] EDENILSON Administration Insulin Aspart 0 unit 08/01/21 07:30 Insulin Aspart (Novolog) 100 Unit/Ml Vial SQ ACHS [facility] Protocol Losartan Potassium 100 mg 08/01/21 07:30 Losartan 50 Mg Tab PO AC-BRKFST [facility] Metoprolol Tartrate 50 mg 08/01/21 09:00 Metoprolol Tartrate 50 Mg Tab PO BID [facility] Naloxone HCl 0.2 mg 07/31/21 21:19 Naloxone 0.4 Mg/Ml 1 Ml Vial IV Q2M PRN Opioid Reversal Ondansetron HCl 4 mg 07/31/21 21:19 08/01/21 02:20 Ondansetron 4 Mg/2 Ml Vial IVP 4 mg Q8HR PRN Administration Nausea And Vomiting Spironolactone 25 mg 08/01/21 09:00 Spironolactone 25 Mg Tab PO DAILY [facility] Intake and Output 07/31/21 08/01/21 08/01/21 22:59 06:59 14:59 Intake Total 0 Output Total 200 Balance -200 Intake: Oral 0 Output: Urine 200 Other: Weight 90.718 kg 07/31/21 22:55 08/01/21 07:05
[2021-08-01 10:38] LABS: HCT 29.5 % (37.2-46.3); HGB 8.9 g/dL (12.0-15.0); MCH 25.9 pg (27.0-32.0); MCHC 30.2 g/dL (32.0-37.0); MCV 85.8 fL (80.0-97.0); Mean Platelet Volume 10.7 fL (9.5-12.2); NRBC Per 100 WBC 0 /100 WBCS (0.0-0.0); Platelet Count 192 X 10*3/uL (140-440); RBC 3.44 X 10*6/uL (4.10-5.20); RDW 13.3 % (11.5-14.5); WBC 16.15 X 10*3/uL (4.50-10.00)
[2021-08-01] MEDS: INSULIN ASPART (NovoLOG) 100 UNIT/ML VIAL SQ SCH ×5 (10:43→21:42)
[2021-08-01] MEDS: METOPROLOL TARTRATE 50 MG TAB PO SCH ×2 (10:44→21:42)
[2021-08-01] MEDS: LOSARTAN 50 MG TAB PO SCH (10:44)
[2021-08-01] MEDS: HEPARIN SODIUM,PORCINE/PF 5,000 UNIT/0.5 ML SYRINGE SQ SCH ×2 (10:44→21:42)
[2021-08-01] MEDS: ATORVASTATIN 40 MG TAB PO SCH (10:44)
--- NOTE | 2021-08-01 10:52 | P.HPOR ---
History of Present Illness H&P Date: 08/01/21 Chief Complaint: Bilateral humerus fractures and left femur fracture The patient is an 80 y/o female with a past medical history of Parkinson's, diabetes, and hypertension, who presented to the ER at [facility] via EMS after sustaining a fall outside a restaurant yesterday evening. She was found to have bilateral proximal humerus fractures and a left femur fracture. She was placed in bilateral arm sling and a knee immobilizer then admitted for orthopedic evaluation and pain control. This morning, she states her pain is controlled. No new complaints today. She denied hitting her head during the fall. Review of Systems Constitutional: Denies chills, Denies fatigue, Denies fever Cardiovascular: Denies chest pain, Denies shortness of breath Respiratory: Denies cough Gastrointestinal: Denies diarrhea, Denies nausea, Denies vomiting Musculoskeletal: left: knee pain, knee stiffness, knee swelling, bilateral: sherif ulder pain, shoulder stiffness, shoulder swelling Past Medical History Past Medical History: Diabetes Mellitus, Hypertension Additional Past Medical History / Comment(s): Parkinson's History of Any Multi-Drug Resistant Organisms: None Reported Past Surgical History: Cholecystectomy, Hysterectomy, Tubal Ligation Additional Past Surgical History / Comment(s): Cataract surgery Past Anesthesia/Blood Transfusion Reactions: No Reported Reaction Past Psychological History: No Psychological Hx Reported Smoking Status: Never smoker Past Alcohol Use History: None Reported Past Drug Use History: None Reported - Past Family History Mother Family Medical History: Hyperlipidemia Medications and Allergies Home Medications Medication Instructions Recorded Confirmed Type Ascorbic Acid [Vitamin C] 500 mg PO DAILY 04/17/20 07/31/21 History Calcium Carbonate [Calcium] 600 mg PO PC-SUPPER 04/17/20 07/31/21 History Carbidopa-Levodopa 25-100 mg 1 tab PO DAILY@1400 04/17/20 07/31/21 History [Sinemet 25-100] Cholecalciferol [Vitamin D3 (25 25 mcg PO PC-SUPPER 04/17/20 07/31/21 History Mcg = 1000 Iu)] Glimepiride [Amaryl] 4 mg PO W/BRKFST 04/17/20 07/31/21 History Insulin Degludec [Tresiba 24 - 30 units SQ HS 04/17/20 07/31/21 History Flextouch U-100] Losartan Potassium 100 mg PO AC-BRKFST 04/17/20 07/31/21 History Omeprazole 20 mg PO DAILY 04/17/20 07/31/21 History Vitamin B Complex 1 cap PO DAILY 04/17/20 07/31/21 History metFORMIN HCL [Glucophage] 500 mg PO PC-BID 04/17/20 07/31/21 History sitaGLIPtin [Januvia] 50 mg PO PC-SUPPER 04/17/20 07/31/21 History Ascorbic Acid [Vitamin C] 500 mg PO DAILY 07/31/21 07/31/21 History Fish Oil/Dha/Epa [Fish Oil 1,200 1 cap PO PC-SUPPER 07/31/21 07/31/21 History mg Fish Oil] Spironolactone [Aldactone] 25 mg PO DAILY 07/31/21 07/31/21 History Allergies Allergy/AdvReac Type Severity Reaction Status Date / Time acetaminophen [From Vicodin] Allergy Rash/Hives Verified 07/31/21 22:28 codeine Allergy Rash/Hives Verified 07/31/21 22:28 hydrocodone [From Vicodin] Allergy Rash/Hives Verified 07/31/21 22:28 iodine Allergy Anaphylaxis Verified 07/31/21 22:28 latex Allergy Rash/Hives Verified 07/31/21 22:28 pioglitazone [From Actos] Allergy Rash/Hives Verified 07/31/21 22:28 shellfish derived [Shellfish] Allergy Rash/Hives Verified 07/31/21 22:28 Sulfa (Sulfonamide Allergy Rash/Hives Verified 07/31/21 22:28 Antibiotics) Physical Examination Osteopathic Statement: *. No significant issues noted on an osteopathic structural exam other than those noted in the History and Physical/Consult. The patient is an 80 y/o female in no acute distress. She is alert and oriented x3. Exam of the bilateral upper extremities reveal no obvious deformity or open wounds. Bilateral arm slings are in place. Point tenderness over the bilateral aspects of the shoulders. Full wrist and hand range of motion. Neurological and circulatory status is intact. Exam of the left lower extremity reveals moderate swelling to the thigh area. Calf is soft and nontender. ROM of the knee was not tested today. Tenderness to palpation of the left thigh. Good foot and ankle motion present. Neurological and circulatory status is intact. Results X-rays of the bilateral shoulders reveal minimally displaced humeral neck f ractures. X-rays of the left femur reveal a displaced oblique fracture. - Labs Labs: Abnormal Lab Results - Last 24 Hours (Table) 07/31/21 07/31/21 07/31/21 Range/Units 20:16 22:55 22:55 WBC 19.2 H (3.8-10.6) k/uL RBC (4.10-5.20) X 10*6/uL Hgb 10.5 L (11.4-16.0) gm/dL Hct 32.3 L (34.0-46.0) % MCH (27.0-32.0) pg MCHC (32.0-37.0) g/dL Neutrophils # 17.5 H (1.3-7.7) k/uL BUN (7-17) mg/dL Glucose 218 H (74-99) mg/dL POC Glucose (mg/dL) 207 H (70-110) mg/dL Magnesium 1.3 L (1.6-2.3) mg/dL Troponin I (0.000-0.034) ng/mL 07/31/21 08/01/21 08/01/21 Range/Units 22:55 07:05 07:05 WBC 16.15 H (3.8-10.6) k/uL RBC 3.44 L (4.10-5.20) X 10*6/uL Hgb 8.9 L (11.4-16.0) gm/dL Hct 29.5 L (34.0-46.0) % MCH 25.9 L (27.0-32.0) pg MCHC 30.2 L (32.0-37.0) g/dL Neutrophils # (1.3-7.7) k/uL BUN 19 H (7-17) mg/dL Glucose 273 H (74-99) mg/dL POC Glucose (mg/dL) (70-110) mg/dL Magnesium (1.6-2.3) mg/dL Troponin I 0.155 H* (0.000-0.034) ng/mL 08/01/21 08/01/21 Range/Units 07:05 07:48 WBC (3.8-10.6) k/uL RBC (4.10-5.20) X 10*6/uL Hgb (11.4-16.0) gm/dL Hct (34.0-46.0) % MCH (27.0-32.0) pg MCHC (32.0-37.0) g/dL Neutrophils # (1.3-7.7) k/uL BUN (7-17) mg/dL Glucose (74-99) mg/dL POC Glucose (mg/dL) 264 H (70-110) mg/dL Magnesium (1.6-2.3) mg/dL Troponin I 0.232 H* (0.000-0.034) ng/mL H & H 07/31/21 08/01/21 Range/Units 22:55 07:05 Hgb 10.5 L 8.9 L (11.4-16.0) gm/dL Hct 32.3 L 29.5 L (34.0-46.0) % Coagulation 08/01/21 Range/Units 07:05 INR 1.1 (<1.2) Result Diagrams: 08/02/21 05:58 08/02/21 05:58 Assessment and Plan (1) Fracture of neck of right humerus Current Visit: Yes Status: Acute Code(s): S42.211A - UNSP DISP FX OF SURGICAL NECK OF RIGHT HUMERUS, INIT SNOMED Code(s): 140165166 (2) Fracture of neck of left humerus Current Visit: Yes Status: Acute Code(s): S42.212A - UNSP DISP FX OF SURGICAL NECK OF LEFT HUMERUS, INIT SNOMED Code(s): 046415252 (3) Fall Current Visit: Yes Status: Acute Code(s): W19.XXXA - UNSPECIFIED FALL, INITIAL ENCOUNTER SNOMED Code(s): 5159786 (4) Left femoral shaft fracture Current Visit: Yes Status: Acute Code(s): S72.302A - UNSP FRACTURE OF SHAFT OF LEFT FEMUR, INIT FOR CLOS FX SNOMED Code(s): 37098720 Plan: The clinical and x-ray findings were discussed with the patient and her family at the bedside this morning. The case was discussed at length with Dr. Yoo. The bilateral humerus fractures will be treated nonoperatively in arm slings. She is scheduled to undergo a closed reduction with insertion of a retrograde nail in the left femur tomorrow morning with Dr. Yoo. Internal medicine and cardiology have cleared the patient. All questions have been answered from the patient and her family. They are agreeable in proceeding with the plan at this time. She will be NPO at midnight tonight. Continue pain control. Pt seen and examined. Spoke with patient and family. Agree with above. Plan for IMN of L femur on Wednesday. She will unfortunately have a hard time using a walker postop because of her bilateral proximal humerus fractures but can be WBAT following.
[2021-08-01 11:04] LABS: Glucose,Whole Blood 205 mg/dL (70-110)
[2021-08-01 11:26] LABS: Creatine Kinase 89 U/L (30-135)
[2021-08-01 12:56] LABS: Appearance,Urine Cloudy (Clear); Bacteria,Urine Rare /hpf; Bilirubin,Urine Negative (Negative); Blood,Urine Negative (Negative); Color,Urine Yellow; Glucose,Urine (UA) 2+ (Negative); Hyaline Casts,Urine 16 /lpf (0-2); Ketones,Urine Trace (Negative); Leukocyte Esterase,Urine Large (Negative); Mucus,Urine Rare /hpf; Nitrite,Urine Positive (Negative); Protein,Urine 1+ (Negative); RBC,Urine 3 /hpf (0-5); Specific Gravity,Urine 1.021 (1.001-1.035); Urobilinogen,Urine <2.0 mg/dL (<2.0); WBC,Urine 60 /hpf (0-5)
[2021-08-01] MEDS: CARBIDOPA-LEVODOPA 25-100 MG 1 EACH TAB PO SCH (13:29)
--- NOTE | 2021-08-01 16:50 | P.PN ---
Subjective Progress Note Date: 08/01/21 (delayed charting seen at 0830) Patient is an 80-year-old female with type II DM, Parkinson's, and hypertension who presents to the emergency room after a fall. Shoulder CTs in the emergency room revealed bilateral shoulder fractures as well as a left distal femur fracture. Chest x-ray was unremarkable. Laboratory evaluation was remarkable for WBC count of 19.2, troponin 0.155, magnesium 1.3, glucose of 218. Her troponin was elevated. We were asked to consult for cardiac risk stratification. Patient seen and examined at bedside. She is states that her pain is relatively controlled. She denies any chest pain. She states with [employer] fall accident she did not lose consciousness or develop chest pain prior to her fall. She has not had any recent episodes of chest pain or syncopal episodes. She has been functionally independent prior to this. General: nontoxic, no distress, appears at stated age Derm: warm, dry, bilateral arm slings Head: atraumatic, normocephalic, symmetric Eyes: EOMI, no lid lag, anicteric sclera Mouth: no lip lesion, mucus membranes moist Cardiovascular: S1S2 reg, no murmur, positive posterior tibial pulse bilateral, Lungs: CTA bilateral, no rhonchi, no rales , no accessory muscle use Abdominal: soft, nontender to palpation, no guarding, no appreciable organomegaly Ext: no gross muscle atrophy, no edema, no contractures Neuro: CN II-XI grossly intact, no focal neuro deficits Psych: Alert, oriented, appropriate affect Assessment/plan: Patient is an 80-year-old female admitted for bilateral humerus fractures and left distal femoral fracture. Elevated troponin with without signs of chest pain -Likely secondary to stress versus cardiac contusion from fall -Echocardiogram pending at time of evaluation -Await cardiology for risk stratification Diabetes mellitus type 2 - SSI - Follow BS - check A1C Parkinson's disease - sinemet Anemia, chronic - follow CBC - Check iron studies Hypomagnesemia -Replace -Repeat in a.m. Leukocytosis -Likely stress-induced Thank you for allowing us to participate in the care of this pleasant patient. Do not hesitate to contact us with questions. Someone can be reached from the [facility] hospitalist group all hours of the day at [phone] or via perfect serve. Objective - Vital Signs Vital signs: Vital Signs Temp 98.2 F 08/01/21 13:00 Pulse 79 08/01/21 13:00 Resp 14 08/01/21 13:00 BP 142/80 08/01/21 13:00 Pulse Ox 98 08/01/21 13:00 FiO2 Intake & Output 07/31/21 08/01/21 08/01/21 18:59 06:59 18:59 Intake Total 0 Output Total 200 500 Balance -200 -500 Weight 90.718 kg Intake: Oral 0 Output: Urine 200 500 - Labs CBC & Chem 7: 08/01/21 07:05 08/01/21 07:05 Labs: Abnormal Lab Results - Last 24 Hours (Table) 07/31/21 07/31/21 07/31/21 Range/Units 20:16 22:55 22:55 WBC 19.2 H (3.8-10.6) k/uL RBC (4.10-5.20) X 10*6/uL Hgb 10.5 L (11.4-16.0) gm/dL Hct 32.3 L (34.0-46.0) % MCH (27.0-32.0) pg MCHC (32.0-37.0) g/dL Neutrophils # 17.5 H (1.3-7.7) k/uL BUN (7-17) mg/dL Glucose 218 H (74-99) mg/dL POC Glucose (mg/dL) 207 H (70-110) mg/dL Hemoglobin A1c (0.0-6.0) % Magnesium 1.3 L (1.6-2.3) mg/dL Troponin I (0.000-0.034) ng/mL Urine Appearance (Clear) Urine Protein (Negative) Urine Glucose (UA) (Negative) Urine Ketones (Negative) Urine Nitrite (Negative) Ur Leukocyte Esterase (Negative) Urine WBC (0-5) /hpf Urine Bacteria (None) /hpf Hyaline Casts (0-2) /lpf Urine Mucus (None) /hpf 07/31/21 08/01/21 08/01/21 Range/Units 22:55 07:05 07:05 WBC 16.15 H (3.8-10.6) k/uL RBC 3.44 L (4.10-5.20) X 10*6/uL Hgb 8.9 L (11.4-16.0) gm/dL Hct 29.5 L (34.0-46.0) % MCH 25.9 L (27.0-32.0) pg MCHC 30.2 L (32.0-37.0) g/dL Neutrophils # (1.3-7.7) k/uL BUN 19 H (7-17) mg/dL Glucose 273 H (74-99) mg/dL POC Glucose (mg/dL) (70-110) mg/dL Hemoglobin A1c (0.0-6.0) % Magnesium (1.6-2.3) mg/dL Troponin I 0.155 H* (0.000-0.034) ng/mL Urine Appearance (Clear) Urine Protein (Negative) Urine Glucose (UA) (Negative) Urine Ketones (Negative) Urine Nitrite (Negative) Ur Leukocyte Esterase (Negative) Urine WBC (0-5) /hpf Urine Bacteria (None) /hpf Hyaline Casts (0-2) /lpf Urine Mucus (None) /hpf 08/01/21 08/01/21 08/01/21 Range/Units 07:05 07:48 10:41 WBC (3.8-10.6) k/uL RBC (4.10-5.20) X 10*6/uL Hgb (11.4-16.0) gm/dL Hct (34.0-46.0) % MCH (27.0-32.0) pg MCHC (32.0-37.0) g/dL Neutrophils # (1.3-7.7) k/uL BUN (7-17) mg/dL Glucose (74-99) mg/dL POC Glucose (mg/dL) 264 H (70-110) mg/dL Hemoglobin A1c (0.0-6.0) % Magnesium (1.6-2.3) mg/dL Troponin I 0.232 H* 0.210 H* (0.000-0.034) ng/mL Urine Appearance (Clear) Urine Protein (Negative) Urine Glucose (UA) (Negative) Urine Ketones (Negative) Urine Nitrite (Negative) Ur Leukocyte Esterase (Negative) Urine WBC (0-5) /hpf Urine Bacteria (None) /hpf Hyaline Casts (0-2) /lpf Urine Mucus (None) /hpf 08/01/21 08/01/21 08/01/21 Range/Units 10:41 11:02 11:56 WBC (3.8-10.6) k/uL RBC (4.10-5.20) X 10*6/uL Hgb (11.4-16.0) gm/dL Hct (34.0-46.0) % MCH (27.0-32.0) pg MCHC (32.0-37.0) g/dL Neutrophils # (1.3-7.7) k/uL BUN (7-17) mg/dL Glucose (74-99) mg/dL POC Glucose (mg/dL) 205 H (70-110) mg/dL Hemoglobin A1c 6.9 H (0.0-6.0) % Magnesium (1.6-2.3) mg/dL Troponin I (0.000-0.034) ng/mL Urine Appearance Cloudy H (Clear) Urine Protein 1+ H (Negative) Urine Glucose (UA) 2+ H (Negative) Urine Ketones Trace H (Negative) Urine Nitrite Positive H (Negative) Ur Leukocyte Esterase Large H (Negative) Urine WBC 60 H (0-5) /hpf Urine Bacteria Rare H (None) /hpf Hyaline Casts 16 H (0-2) /lpf Urine Mucus Rare H (None) /hpf
[2021-08-01 17:20] LABS: Glucose,Whole Blood 189 mg/dL (70-110)
[2021-08-01 18:42] LABS: Chol/HDL Ratio 2.47 Ratio; LDL Cholesterol,Calculated 56.8 mg/dL (0.0-131.0)
[2021-08-01 20:41] LABS: Glucose,Whole Blood 175 mg/dL (70-110)
[2021-08-01 22:41] LABS: % Iron Saturation 15.09 (12.00-45.00); Ferritin 61.1 ng/mL (10.0-291.0)
[2021-08-02] MEDS: HYDROmorphone 1 MG/ML 1 ML SYRINGE IVP PRN (02:45)
[2021-08-02] MEDS: SODIUM CHLORIDE 0.9% 1,000 ML IV SCH ×3 (03:42→20:32)
[2021-08-02 06:42] LABS: HCT 29.1 % (34.0-46.0); HGB 9.1 gm/dL (11.4-16.0); Hypochromasia Marked; MCH 27.8 pg (25.0-35.0); MCHC 31.4 g/dL (31.0-37.0); MCV 88.3 fL (80.0-100.0); Mean Platelet Volume 7.9; Platelet Count 170 k/uL (150-450); RDW 13.5 % (11.5-15.5); WBC 15.6 k/uL (3.8-10.6)
[2021-08-02 06:55] LABS: African American GFR (CKD) 53 (>60 ml/min/1.73 sqM); Anion Gap 8 mmol/L; Blood Urea Nitrogen 23 mg/dL (7-17); Calcium 8.5 mg/dL (8.4-10.2); Carbon Dioxide 23 mmol/L (22-30); Chloride 107 mmol/L (98-107); Glucose 152 mg/dL (74-99); Non-African American GFR(CKD) 46 (>60 ml/min/1.73 sqM); Potassium 5.3 mmol/L (3.5-5.1); Sodium 138 mmol/L (137-145)
[2021-08-02 07:23] LABS: Glucose,Whole Blood 173 mg/dL (70-110)
[2021-08-02] MEDS: INSULIN ASPART (NovoLOG) 100 UNIT/ML VIAL SQ SCH ×4 (08:34→21:32)
[2021-08-02] MEDS: METOPROLOL TARTRATE 50 MG TAB PO SCH ×2 (08:34→20:32)
[2021-08-02] MEDS ORDERED: PROPOFOL 10 MG/ML 20 ML VIAL IV ONE (09:10)
[2021-08-02] MEDS ORDERED: MIDAZOLAM 2 MG/2 ML VIAL ONE (09:10)
[2021-08-02] MEDS ORDERED: ROCURONIUM 10 MG/ML (5 ML VIAL) IV ONE (09:10)
[2021-08-02] MEDS ORDERED: LIDOCAINE 2% INJ 20 MG/ML (2 ML VIAL) ONE (09:10)
[2021-08-02] MEDS ORDERED: ePHEDrine 50 MG/ML 1 ML VIAL ONE (09:10)
[2021-08-02] MEDS ORDERED: WATER FOR INJECTION, STERILE 10 ML VIAL IV ONE (09:10)
[2021-08-02] MEDS ORDERED: SUCCINYLCHOLINE CHLORIDE 100 MG/5 ML SYR IV ONE (09:10)
[2021-08-02] MEDS ORDERED: fentaNYL (PF) 50 MCG/ML 2 ML AMP ONE (09:10)
[2021-08-02] MEDS ORDERED: PHENYLEPHRINE-0.9% NACL SYG 1,000 MCG/10 ML SYRINGE ONE (09:10)
[2021-08-02] MEDS ORDERED: NEOSTIGMINE 1 MG/ML 10 ML VIAL ONE (09:10)
[2021-08-02] MEDS ORDERED: GLYCOPYRROLATE 0.2 MG/ML 2 ML VIAL ONE (09:10)
[2021-08-02] MEDS ORDERED: LACTATED RINGERS 1,000 ML IV ONE (09:10)
[2021-08-02] MEDS ORDERED: SODIUM CHLORIDE 0.9% 50 ML with ceFAZolin 2,000 MG IV ONE ×2 (09:35)
[2021-08-02] MEDS: HEPARIN SODIUM,PORCINE/PF 5,000 UNIT/0.5 ML SYRINGE SQ SCH (09:39)
--- NOTE | 2021-08-02 11:05 | P.OP ---
Date of Procedure: 08/02/21 Preoperative Diagnosis: Left femoral shaft fracture, distal third Postoperative Diagnosis: Same Procedure(s) Performed: Left femur open reduction internal fixation with IM nail Implants: Synthes supracondylar nail, 360 mm 13 mm, statically locked Anesthesia: EVARISTO Surgeon: Ina Yoo Quality Engineering Manager #1: Otis Ham Estimated Blood Loss (ml): 50 Condition: stable Disposition: PACU Indications for Procedure: Amy is an 80-year-old female who had a ground-level fall several days ago. She sustained multiple injuries including bilateral proximal humerus fractures and a left femoral shaft fracture. The bilateral proximal humerus fractures will be treated nonoperatively in slings. The femoral shaft fracture is a spiral through the distal third of the shaft. CT shows that there is no intra- articular extension. We had a discussion with the patient and her family and they elected to proceed with surgical intervention for the femur. Description of Procedure: The patient, operative extremity, and procedure were identified in the preop holding area. After informed consent was obtained the patient was brought back to the operating room. Gen. anesthesia was provided by the anesthesia team. She was then moved onto the radiolucent table. Care was taken to protect her bilateral arms. The left lower extremity was then prepped and draped in normal sterile fashion. A formal timeout was performed. A reduction of the femur was performed with a radiolucent triangle and bumps. Once the reduction was adequate an incision was made inferior to the patella through the center of the patellar tendon entering the knee. A guidewire was introduced to the distal femur. Starting point was in the middle of the notch and just anterior to Blumensat's line. An opening reamer was then utilized over the guidewire. A ball-tipped guidewire was then introduced across the fracture site. The measuring device showed that the appropriate length reaching past the lesser trochanter was a 360 mm nail. While holding the reduction, serial reamers were then utilized over the guidewire. There was appropriate chatter at 14 mm and one last reamer at 14.5 mm was passed. A 13 mm nail was then inserted. Once the placement and the reduction were confirmed on fluoroscopy, 2 locked screws were placed distally from lateral to medial. Using the perfect [place] technique a statically locked screw was placed proximally. Again the placement of the screws and hardware and reduction were confirmed on fluoroscopy and found to be adequate. The knee was copiously irrigated with normal saline. The remaining wounds were also irrigated. They were then closed in layered fashion with Vicryl, Monocryl, and skin glue. Wounds were dressed with OpSite dressings. Patient was aroused by the anesthesia team and brought back to PACU in stable condition. She will be weight-bear as tolerated following the surgery in her lower extremity but nonweightbearing in her upper extremities.
[2021-08-02] MEDS ORDERED: ONDANSETRON 4 MG/2 ML VIAL IVP PRN (11:07)
[2021-08-02] MEDS ORDERED: HYDROcodone/APAP 5-325MG 1 EACH TAB PO PRN ×2 (11:07)
[2021-08-02] MEDS ORDERED: HYDROmorphone 0.5 MG/0.5 ML SYRINGE IVP PRN ×3 (11:07)
--- NOTE | 2021-08-02 11:07 | FL ---
Fluoroscopy History: Left Femur Nail Left Femur Nail. 1 min 27 secs FL. 7 images saved.
[2021-08-02] MEDS ORDERED: ALBUTEROL NEBULIZED 2.5 MG/3 ML INHALATION ONE (11:27)
[2021-08-02 11:35] LABS: Glucose,Whole Blood 169 mg/dL (70-110)
--- NOTE | 2021-08-02 11:54 | XR ---
EXAMINATION TYPE: XR femur LT DATE OF EXAM: 08/02/2021 CLINICAL HISTORY: ORIF TECHNIQUE: Two views of the left femur are obtained. COMPARISON: 07/31/2021 FINDINGS: Interval placement of intramedullary zeina with 2 transfixing screws are noted distally. Dist al left femoral diaphyseal fracture remains undisplaced with 1 cm displacement of distal fracture com ponent. IMPRESSION: ORIF as noted with displacement as above.
[2021-08-02] MEDS ORDERED: SODIUM CHLORIDE 0.9% 1,000 ML IV ONE (12:23)
[2021-08-02] MEDS: CARBIDOPA-LEVODOPA 25-100 MG 1 EACH TAB PO SCH (13:02)
[2021-08-02] MEDS: ATORVASTATIN 40 MG TAB PO SCH (13:02)
[2021-08-02] MEDS: PANTOPRAZOLE 40 MG TABLET PO SCH (13:04)
[2021-08-02] MEDS: LOSARTAN 50 MG TAB PO SCH (13:51)
--- NOTE | 2021-08-02 14:02 | P.PN ---
Subjective Progress Note Date: 08/02/21 Patient is an 80-year-old female with type II DM, Parkinson's, and hypertension who presents to the emergency room after a fall. Shoulder CTs in the emergency room revealed bilateral shoulder fractures as well as a left distal femur fracture. Chest x-ray was unremarkable. Laboratory evaluation was remarkable for WBC count of 19.2, troponin 0.155, magnesium 1.3, glucose of 218. Her troponin was elevated. We were asked to consult for cardiac risk stratification. Her echo was done which showed a preserved ejection fraction but moderate pulm HTN. She underwent IM nailing on 08/02/21. Patient seen and examined at bedside. She is very sleepy after OR, she denies chest pain, SOB, and nausea. Family at bedside. All questions answered. General: nontoxic, no distress, appears at stated age Derm: warm, dry, bilateral arm slings Head: atraumatic, normocephalic, symmetric Eyes: EOMI, no lid lag, anicteric sclera Mouth: no lip lesion, mucus membranes moist Cardiovascular: S1S2 reg, no murmur, positive posterior tibial pulse bilateral, Lungs: CTA bilateral, no rhonchi, no rales , no accessory muscle use Abdominal: soft, nontender to palpation, no guarding, no appreciable organomegaly Neuro: CN II-XI grossly intact, no focal neuro deficits Psych: lethargic, oriented, appropriate affect Assessment/plan: Patient is an 80-year-old female admitted for bilateral humerus fractures and left distal femoral fracture. Elevated troponin with without signs of chest pain -Likely secondary to stress versus cardiac contusion from fall -Echocardiogram,normal -Cardio Diabetes mellitus type 2 - SSI - Follow BS - A1C 6.9 TIKI Hyperkalemia - hold losartan and aldactone - repeat labs in AM - continue IVF Parkinson's disease - sinemet Moderate pulm HTN on echo - outpatient follow-up Iron deficiency anemia - follow CBC - ferrous sulfate Hypomagnesemia, resolved Leukocytosis, resolved -Likely stress-induced Thank you for allowing us to participate in the care of this pleasant patient. Do not hesitate to contact us with questions. Someone can be reached from the [facility] hospitalist group all hours of the day at [phone] or via perfect serve. Objective - Vital Signs Vital signs: Vital Signs Temp 97.6 F 08/02/21 11:35 Pulse 89 08/02/21 12:08 Resp 16 08/02/21 12:24 BP 167/72 08/02/21 12:08 Pulse Ox 95 08/02/21 12:24 FiO2 Intake & Output 08/01/21 08/02/21 08/02/21 18:59 06:59 18:59 Intake Total 1760 2280 950 Output Total 500 750 380 Balance 1260 1530 570 Intake: IV 950 Intake, IV Titration 1560 1560 Amount Sodium Chloride 0.9% 1, 1560 1560 000 ml @ 130 mls/hr IV . Q7H42M [facility] Rx#:[id number] Oral 200 720 Output: Urine 500 750 330 Estimated Blood Loss 50 Other: Voiding Method Indwelling Catheter Indwelling Catheter Indwelling Catheter # Bowel Movements 0 - Labs CBC & Chem 7: 08/02/21 05:58 08/02/21 05:58 Labs: Abnormal Lab Results - Last 24 Hours (Table) 08/01/21 08/01/21 08/01/21 Range/Units 10:41 11:00 17:19 WBC (3.8-10.6) k/uL RBC (3.80-5.40) m/uL Hgb (11.4-16.0) gm/dL Hct (34.0-46.0) % Potassium (3.5-5.1) mmol/L BUN (7-17) mg/dL Creatinine (0.52-1.04) mg/dL Glucose (74-99) mg/dL POC Glucose (mg/dL) 189 H (70-110) mg/dL Hemoglobin A1c 6.9 H (0.0-6.0) % Iron 49 L (50-170) ug/dL 08/01/21 08/02/21 08/02/21 Range/Units 20:38 05:58 05:58 WBC 15.6 H (3.8-10.6) k/uL RBC 3.30 L (3.80-5.40) m/uL Hgb 9.1 L (11.4-16.0) gm/dL Hct 29.1 L (34.0-46.0) % Potassium 5.3 H (3.5-5.1) mmol/L BUN 23 H (7-17) mg/dL Creatinine 1.13 H (0.52-1.04) mg/dL Glucose 152 H (74-99) mg/dL POC Glucose (mg/dL) 175 H (70-110) mg/dL Hemoglobin A1c (0.0-6.0) % Iron (50-170) ug/dL 08/02/21 08/02/21 Range/Units 07:21 11:33 WBC (3.8-10.6) k/uL RBC (3.80-5.40) m/uL Hgb (11.4-16.0) gm/dL Hct (34.0-46.0) % Potassium (3.5-5.1) mmol/L BUN (7-17) mg/dL Creatinine (0.52-1.04) mg/dL Glucose (74-99) mg/dL POC Glucose (mg/dL) 173 H 169 H (70-110) mg/dL Hemoglobin A1c (0.0-6.0) % Iron (50-170) ug/dL Microbiology - Last 24 Hours (Table) 08/01/21 11:56 Urine Culture - Preliminary Urine,Voided
--- NOTE | 2021-08-02 16:38 | P.PN ---
Subjective Progress Note Date: 08/02/21 This is a 80-year-old female who was admitted to the hospital with the following fractures of the shoulders and also distal femoral fracture. Cardiac consult was requested because of abnormal troponin. Patient was cleared for surgery because of stable clinical status. Patient underwent surgery today and came back. Seemed to be critically stable. Still lethargic and waking up. No arrhythmias detected. Continue current medical therapy and will follow Objective - Vital Signs Vital signs: Vital Signs Temp 98.1 F 08/02/21 13:10 Pulse 93 08/02/21 15:16 Resp 16 08/02/21 12:24 BP 154/79 08/02/21 15:16 Pulse Ox 93 L 08/02/21 15:16 FiO2 Intake & Output 08/01/21 08/02/21 08/02/21 18:59 06:59 18:59 Intake Total 1760 2280 2510 Output Total 500 750 380 Balance 1260 1530 2130 Intake: IV 2510 Sodium Chloride 0.9% 1, 1560 000 ml @ 130 mls/hr IV . Q7H42M [facility] Rx#:[id number] Intake, IV Titration 1560 1560 Amount Sodium Chloride 0.9% 1, 1560 1560 000 ml @ 130 mls/hr IV . Q7H42M [facility] Rx#:[id number] Oral 200 720 Output: Urine 500 750 330 Estimated Blood Loss 50 Other: Voiding Method Indwelling Catheter Indwelling Catheter Indwelling Catheter # Bowel Movements 0 - Exam GENERAL EXAM: Patient is sleepy and waking up from anesthesia HEENT: Normocephalic. Normal reaction of pupils, equal size, normal range of extraocular motion. No erythema or exudates in the throat. NECK: No masses, no nuchal rigidity. CHEST: No chest wall deformity. LUNGS: Diminished air exchange HEART: S1 and S2 normal with no audible mumurs or gallops. Regular rhythm, femorals equal on both sides.. ABDOMEN: No hepatosplenomegaly, normal bowel sounds, no guarding or rigidity. SKIN: No rashes CENTRAL NERVOUS SYSTEM: No focal deficits. EXTREMITIES: No cyanosis, clubbing or edema. - Labs CBC & Chem 7: 08/02/21 05:58 08/02/21 05:58 Labs: Abnormal Lab Results - Last 24 Hours (Table) 08/01/21 08/01/21 08/01/21 Range/Units 11:00 17:19 20:38 WBC (3.8-10.6) k/uL RBC (3.80-5.40) m/uL Hgb (11.4-16.0) gm/dL Hct (34.0-46.0) % Potassium (3.5-5.1) mmol/L BUN (7-17) mg/dL Creatinine (0.52-1.04) mg/dL Glucose (74-99) mg/dL POC Glucose (mg/dL) 189 H 175 H (70-110) mg/dL Iron 49 L (50-170) ug/dL 08/02/21 08/02/21 08/02/21 Range/Units 05:58 05:58 07:21 WBC 15.6 H (3.8-10.6) k/uL RBC 3.30 L (3.80-5.40) m/uL Hgb 9.1 L (11.4-16.0) gm/dL Hct 29.1 L (34.0-46.0) % Potassium 5.3 H (3.5-5.1) mmol/L BUN 23 H (7-17) mg/dL Creatinine 1.13 H (0.52-1.04) mg/dL Glucose 152 H (74-99) mg/dL POC Glucose (mg/dL) 173 H (70-110) mg/dL Iron (50-170) ug/dL 08/02/21 Range/Units 11:33 WBC (3.8-10.6) k/uL RBC (3.80-5.40) m/uL Hgb (11.4-16.0) gm/dL Hct (34.0-46.0) % Potassium (3.5-5.1) mmol/L BUN (7-17) mg/dL Creatinine (0.52-1.04) mg/dL Glucose (74-99) mg/dL POC Glucose (mg/dL) 169 H (70-110) mg/dL Iron (50-170) ug/dL Microbiology - Last 24 Hours (Table) 08/01/21 11:56 Urine Culture - Preliminary Urine,Voided Assessment and Plan (1) Troponin level elevated Current Visit: Yes Status: Acute Code(s): R77.8 - OTHER SPECIFIED ABNORMALITIES OF PLASMA PROTEINS SNOMED Code(s): 273994871 (2) Fracture of neck of left humerus Current Visit: Yes Status: Acute Code(s): S42.212A - UNSP DISP FX OF SURGICAL NECK OF LEFT HUMERUS, INIT SNOMED Code(s): 936481724 (3) Fracture of neck of right humerus Current Visit: Yes Status: Acute Code(s): S42.211A - UNSP DISP FX OF SURGICAL NECK OF RIGHT HUMERUS, INIT SNOMED Code(s): 481513063 (4) Left femoral shaft fracture Current Visit: Yes Status: Acute Code(s): S72.302A - UNSP FRACTURE OF SHAFT OF LEFT FEMUR, INIT FOR CLOS FX SNOMED Code(s): 21122656 (5) Hypertension Current Visit: Yes Status: Acute Code(s): I10 - ESSENTIAL (PRIMARY) HY PERTENSION SNOMED Code(s): 20501326 Plan: Continue monitor her vital signs closely. Continue beta blockers and rest of the medication. We'll follow
[2021-08-02 17:22] LABS: Glucose,Whole Blood 162 mg/dL (70-110)
[2021-08-02] MEDS: LINAGLIPTIN 5 MG TABLET PO SCH (17:27)
[2021-08-02] MEDS: SENNOSIDES-DOCUSATE SODIUM 1 EACH TAB PO SCH (20:32)
[2021-08-02 21:15] LABS: Glucose,Whole Blood 239 mg/dL (70-110)
[2021-08-02] MEDS: INSULIN DETEMIR (LEVEMIR) 100 UNIT/ML SYR SQ SCH (21:32)
[2021-08-02 23:16] LABS: Basophils # (A) 0.09 X 10*3/uL (0.00-0.10); Basophils % (A) 0.6 %; Eosinophils # (A) 0.15 X 10*3/uL (0.04-0.35); Immature Grans, Automated 0.5 %; Lymphocytes # (A) 1.24 X 10*3/uL (0.90-5.00); Lymphocytes % (A) 7.9 %; Monocytes % (A) 5.8 %; NRBC Per 100 WBC 0 /100 WBCS (0.0-0.0); Neutrophils # (A) 13.17 X 10*3/uL (1.80-7.70); Neutrophils % (A) 84.2 %
[2021-08-02 23:18] LABS: HCT 22.5 % (37.2-46.3); HGB 6.8 g/dL (12.0-15.0); Hypochromasia (M) 2+; MCH 26.4 pg (27.0-32.0); MCHC 30.2 g/dL (32.0-37.0); MCV 87.2 fL (80.0-97.0); Mean Platelet Volume 10.7 fL (9.5-12.2); Platelet Count 164 X 10*3/uL (140-440); RBC 2.58 X 10*6/uL (4.10-5.20); RDW 13.6 % (11.5-14.5); WBC 15.63 X 10*3/uL (4.50-10.00)
[2021-08-03 08:13] LABS: Glucose,Whole Blood 192 mg/dL (70-110)
[2021-08-03] MEDS: ATORVASTATIN 40 MG TAB PO SCH (08:29)
[2021-08-03] MEDS: METOPROLOL TARTRATE 50 MG TAB PO SCH ×2 (08:29→20:50)
[2021-08-03] MEDS: PANTOPRAZOLE 40 MG TABLET PO SCH (08:29)
[2021-08-03] MEDS: FERROUS SULFATE 325 MG TAB PO SCH (08:30)
[2021-08-03] MEDS: ENOXAPARIN 30 MG/0.3 ML SYRINGE SQ SCH ×2 (08:30→20:49)
[2021-08-03] MEDS: INSULIN ASPART (NovoLOG) 100 UNIT/ML VIAL SQ SCH ×4 (08:30→20:54)
[2021-08-03] MEDS: CARBIDOPA-LEVODOPA 25-100 MG 1 EACH TAB PO SCH (08:30)
[2021-08-03] MEDS: SODIUM CHLORIDE 0.9% 1,000 ML IV SCH ×3 (08:31→20:50)
[2021-08-03] MEDS: traMADol 50 MG TAB PO SCH ×3 (10:21→16:03)
[2021-08-03 10:58] LABS: Basophils # (A) 0.1 k/uL (0-0.2); Basophils % (A) 1 %; Eosinophils # (A) 0.3 k/uL (0-0.7); Eosinophils % (A) 2 %; HCT 25.6 % (34.0-46.0); HGB 8.3 gm/dL (11.4-16.0); Hypochromasia Moderate; Lymphocytes # (A) 1.1 k/uL (1.0-4.8); Lymphocytes % (A) 9 %; MCHC 32.5 g/dL (31.0-37.0); MCV 89.3 fL (80.0-100.0); Mean Platelet Volume 7.9; Monocytes # (A) 0.5 k/uL (0-1.0); Monocytes % (A) 4 %; Neutrophils # (A) 10.2 k/uL (1.3-7.7); Neutrophils % (A) 83 %; Platelet Count 159 k/uL (150-450); RBC 2.87 m/uL (3.80-5.40); RDW 14.1 % (11.5-15.5); WBC 12.2 k/uL (3.8-10.6)
--- NOTE | 2021-08-03 10:59 | P.PN ---
Subjective Progress Note Date: 08/03/21 This is a 80-year-old female who was admitted to the hospital with the following fractures of the shoulders and also distal femoral fracture. Cardiac consult was requested because of abnormal troponin. Patient was cleared for surgery because of stable clinical status. Patient underwent surgery today and came back. Seemed to be critically stable. Still lethargic and waking up. No arrhythmias detected. Continue current medical therapy and will follow. 08/03/2021: This patient is admitted to the hospital with fracture of the shoulders and also distal femoral fracture. Had surgery yesterday. Seemed to be doing fairly well. Communicates with a low voice. Doesn't appear to be in acute distress. Denies any chest pain or shortness of breath. Heart is regular. Lungs appeared to be clear anteriorly. Lab work showed anemia with hemoglobin of 6.8. Continue to monitor and patient may need blood transfusion, If there is any further drop Objective - Vital Signs Vital signs: Vital Signs Temp 98.5 F 08/03/21 06:08 Pulse 90 08/03/21 08:16 Resp 16 08/03/21 06:08 BP 141/69 08/03/21 08:16 Pulse Ox 97 08/03/21 06:08 FiO2 Intake & Output 08/02/21 08/03/21 08/03/21 18:59 06:59 18:59 Intake Total 2510 2830 Output Total 380 650 Balance 2130 2180 Intake: IV 2510 Sodium Chloride 0.9% 1, 1560 000 ml @ 130 mls/hr IV . Q7H42M [facility] Rx#:[id number] Intake, IV Titration 1610 Amount Sodium Chloride 0.9% 1, 1560 000 ml @ 130 mls/hr IV . Q7H42M [facility] Rx#:[id number] ceFAZolin 2 gm In Sodium 50 Chloride 0.9% 50 ml @ 100 mls/hr IVPB Q8HR [facility] Rx# :[id number] Oral 600 Blood Product 620 Rc As-1 Unit 310 [id number] Output: Urine 330 650 Estimated Blood Loss 50 Other: Voiding Method Indwelling Catheter Indwelling Catheter # Bowel Movements 0 - Exam GENERAL EXAM: Patient is awake and able to communicate HEENT: Normocephalic. Normal reaction of pupils, equal size, normal range of extraocular motion. No erythema or exudates in the throat. NECK: No masses, no nuchal rigidity. CHEST: No chest wall deformity. LUNGS: Diminished air exchange HEART: S1 and S2 normal with no audible mumurs or gallops. Regular rhythm, femorals equal on both sides.. ABDOMEN: No hepatosplenomegaly, normal bowel sounds, no guarding or rigidity. SKIN: No rashes CENTRAL NERVOUS SYSTEM: No focal deficits. EXTREMITIES: No cyanosis, clubbing or edema. - Labs CBC & Chem 7: 08/02/21 18:20 08/02/21 05:58 Labs: Abnormal Lab Results - Last 24 Hours (Table) 08/02/21 08/02/21 08/02/21 Range/Units 11:33 17:21 18:20 WBC 15.63 H (4.50-10.00) X 10*3/uL RBC 2.58 L (4.10-5.20) X 10*6/uL Hgb 6.8 L* (12.0-15.0) g/dL Hct 22.5 L (37.2-46.3) % MCH 26.4 L (27.0-32.0) pg MCHC 30.2 L (32.0-37.0) g/dL Immature Gran # 0.08 H (0.00-0.04) X 10*3/uL Neutrophils # 13.17 H (1.80-7.70) X 10*3/uL POC Glucose (mg/dL) 169 H 162 H (70-110) mg/dL Crossmatch 08/02/21 08/03/21 08/03/21 Range/Units 21:13 00:55 08:12 WBC (4.50-10.00) X 10*3/uL RBC (4.10-5.20) X 10*6/uL Hgb (12.0-15.0) g/dL Hct (37.2-46.3) % MCH (27.0-32.0) pg MCHC (32.0-37.0) g/dL Immature Gran # (0.00-0.04) X 10*3/uL Neutrophils # (1.80-7.70) X 10*3/uL POC Glucose (mg/dL) 239 H 192 H (70-110) mg/dL Crossmatch See Detail Microbiology - Last 24 Hours (Table) 08/01/21 11:56 Urine Culture - Preliminary Urine,Voided Gram Neg Bacilli Assessment and Plan (1) Troponin level elevated Current Visit: Yes Status: Acute Code(s): R77.8 - OTHER SPECIFIED ABNORMALITIES OF PLASMA PROTEINS SNOMED Code(s): 946352733 (2) Fracture of neck of left humerus Current Visit: Yes Status: Acute Code(s): S42.212A - UNSP DISP FX OF SURGICAL NECK OF LEFT HUMERUS, INIT SNOMED Code(s): 723723010 (3) Fracture of neck of right humerus Current Visit: Yes Status: Acute Code(s): S42.211A - UNSP DISP FX OF SURGICAL NECK OF RIGHT HUMERUS, INIT SNOMED Code(s): 620874245 (4) Left femoral shaft fracture Current Visit: Yes Status: Acute Code(s): S72.302A - UNSP FRACTURE OF SHAFT OF LEFT FEMUR, INIT FOR CLOS FX SNOMED Code(s): 93968219 (5) Hypertension Current Visit: Yes Status: Acute Code(s): I10 - ESSENTIAL (PRIMARY) HYPERTE NSION SNOMED Code(s): 12534685 Plan: Status post surgery for the hip fracture seemed to be clinically stable. There is a drop in hemoglobin to 6.8. Vital signs are stable. We'll follow as needed
--- NOTE | 2021-08-03 11:12 | P.PN ---
Subjective Progress Note Date: 08/03/21 This patient is an 80- year old female who is status-post left femur open reduction internal fixation with IM nail on 08/02/21. She also is being followed for bilateral proximal humerus fractures that are being treated non-operatively. Today is post-operative day #1. Patient is examined bedside this morning. Hemoglobin resulted 6.8 last evening and patient was tranfused one unit of PRBCs per internal medicine. Patient states she is doing well with minimal pain in the left thigh. No new complaints this morning. Vital signs stable. Objective - Vital Signs Vital signs: Vital Signs Temp 98.5 F 08/03/21 06:08 Pulse 90 08/03/21 08:16 Resp 16 08/03/21 06:08 BP 141/69 08/03/21 08:16 Pulse Ox 97 08/03/21 06:08 FiO2 Intake & Output 08/02/21 08/03/21 08/03/21 18:59 06:59 18:59 Intake Total 2510 2830 Output Total 380 650 Balance 2130 2180 Intake: IV 2510 Sodium Chloride 0.9% 1, 1560 000 ml @ 130 mls/hr IV . Q7H42M [facility] Rx#:[id number] Intake, IV Titration 1610 Amount Sodium Chloride 0.9% 1, 1560 000 ml @ 130 mls/hr IV . Q7H42M [facility] Rx#:[id number] ceFAZolin 2 gm In Sodium 50 Chloride 0.9% 50 ml @ 100 mls/hr IVPB Q8HR [facility] Rx# :[id number] Oral 600 Blood Product 620 Rc As-1 Unit 310 [id number] Output: Urine 330 650 Estimated Blood Loss 50 Other: Voiding Method Indwelling Catheter Indwelling Catheter # Bowel Movements 0 - Exam On examination patient is sitting up in bed in no apparent distress. She is alert and answers questions appropriately. On inspection of the bilateral upper extremities, there are slings in place that appear to be well fitting. Bilateral upper extremities warm and well perfused, radial pulse palpable. Motor and sensory function intact bilateral upper extremities. On inspection of the left thigh, there are Opsite surgical dressings intact with no bleeding or drainage through the dressings. Mild swelling of the thigh, thigh is soft and compressible. LLE warm and well perfused. Calf nontender. Neurovascular intact LLE. - Labs CBC & Chem 7: 06/26/22 10:47 08/02/21 05:58 Labs: Abnormal Lab Results - Last 24 Hours (Table) 08/02/21 08/02/21 08/02/21 Range/Units 11:33 17:21 18:20 WBC 15.63 H (4.50-10.00) X 10*3/uL RBC 2.58 L (4.10-5.20) X 10*6/uL Hgb 6.8 L* (12.0-15.0) g/dL Hct 22.5 L (37.2-46.3) % MCH 26.4 L (27.0-32.0) pg MCHC 30.2 L (32.0-37.0) g/dL Immature Gran # 0.08 H (0.00-0.04) X 10*3/uL Neutrophils # 13.17 H (1.80-7.70) X 10*3/uL POC Glucose (mg/dL) 169 H 162 H (70-110) mg/dL Crossmatch 08/02/21 08/03/21 08/03/21 Range/Units 21:13 00:55 08:12 WBC (4.50-10.00) X 10*3/uL RBC (4.10-5.20) X 10*6/uL Hgb (12.0-15.0) g/dL Hct (37.2-46.3) % MCH (27.0-32.0) pg MCHC (32.0-37.0) g/dL Immature Gran # (0.00-0.04) X 10*3/uL Neutrophils # (1.80-7.70) X 10*3/uL POC Glucose (mg/dL) 239 H 192 H (70-110) mg/dL Crossmatch See Detail Microbiology - Last 24 Hours (Table) 08/01/21 11:56 Urine Culture - Preliminary Urine,Voided Gram Neg Bacilli Assessment and Plan Assessment: Status-post left femur open reduction internal fixation with IM nail on 08/02/21. Post-operative day #1. Bilateral proximal humerus fractures, non-operative treatment. Plan: - Weight bear as tolerated operative extremity with walker. Up with assistance. ROM of knee as tolerated. - Non-weight bearing bilateral upper extremities. Keep slings intact. No surgical treatment for bilateral proximal humerus fractures. - Physical therapy for gait and balance training. - Lovenox for DVT prophylaxis. - Pain management as needed. - Internal medicine for tank-operative medical management. - Case management consulted for discharge planning.
[2021-08-03 11:14] LABS: ALT 6 U/L (4-34); AST 41 U/L (14-36); African American GFR (CKD) 61 (>60 ml/min/1.73 sqM); Albumin 2.6 g/dL (3.5-5.0); Alkaline Phosphatase 72 U/L (38-126); Anion Gap 4 mmol/L; Blood Urea Nitrogen 24 mg/dL (7-17); Carbon Dioxide 21 mmol/L (22-30); Chloride 110 mmol/L (98-107); Globulin 2.7 g/dL; Glucose 214 mg/dL (74-99); Non-African American GFR(CKD) 53 (>60 ml/min/1.73 sqM); Potassium 4.9 mmol/L (3.5-5.1); Sodium 135 mmol/L (137-145); Total Bilirubin 0.8 mg/dL (0.2-1.3); Total Protein 5.3 g/dL (6.3-8.2)
[2021-08-03 12:47] LABS: Glucose,Whole Blood 225 mg/dL (70-110)
[2021-08-03] MEDS ORDERED: ACETAMINOPHEN TAB 325 MG TAB PO PRN (15:45)
--- NOTE | 2021-08-03 16:17 | P.PN ---
Subjective Progress Note Date: 08/03/21 Principal diagnosis: Bilateral Humeral fracture, The patient is an 80-year-old female with a history of Parkinson's, type 2 diabetes, hypertension who presented to the emergency room prostate fall. The patient had a workup that showed bilateral shoulder fractures as well as left distal femur fracture. Patient was also noted to have a leukocytosis of 19.2, troponin of 0.155, glucose of 218, magnesium 1.3. The patient underwent IM nailing on August 02. She had an echocardiogram which showed preserved ejection fraction with moderate pulmonary hypertension. The patient today was noted to be more lethargic Objective - Vital Signs Vital signs: Vital Signs Temp 99.2 F 08/03/21 12:38 Pulse 84 08/03/21 15:45 Resp 19 08/03/21 12:38 BP 162/69 08/03/21 15:45 Pulse Ox 91 L 08/03/21 12:38 FiO2 Intake & Output 08/02/21 08/03/21 08/03/21 18:59 06:59 18:59 Intake Total 2510 2830 Output Total 380 650 100 Balance 2130 2180 -100 Intake: IV 2510 Sodium Chloride 0.9% 1, 1560 000 ml @ 130 mls/hr IV . Q7H42M [facility] Rx#:[id number] Intake, IV Titration 1610 Amount Sodium Chloride 0.9% 1, 1560 000 ml @ 130 mls/hr IV . Q7H42M [facility] Rx#:[id number] ceFAZolin 2 gm In Sodium 50 Chloride 0.9% 50 ml @ 100 mls/hr IVPB Q8HR [facility] Rx# :[id number] Oral 600 Blood Product 620 Rc As-1 Unit 310 [id number] Output: Urine 330 650 100 Estimated Blood Loss 50 Other: Voiding Method Indwelling Catheter Indwelling Catheter Indwelling Catheter # Bowel Movements 0 0 - Constitutional Constitutional Comment(s): Sleeping responsive to pain - Respiratory Respiratory: bilateral: diminished - Cardiovascular Rhythm: regular - Gastrointestinal General gastrointestinal: Present: normal bowel sounds - Genitourinary Genitourinary Comment(s): Quigley catheter - Musculoskeletal Musculoskeletal Comment(s): Bilateral arm slings, left leg dressed with the dressing c/d/i - Labs CBC & Chem 7: 08/03/21 10:47 08/03/21 10:47 Labs: Abnormal Lab Results - Last 24 Hours (Table) 08/02/21 08/02/21 08/02/21 Range/Units 17:21 18:20 21:13 WBC 15.63 H (4.50-10.00) X 10*3/uL RBC 2.58 L (4.10-5.20) X 10*6/uL Hgb 6.8 L* (12.0-15.0) g/dL Hct 22.5 L (37.2-46.3) % MCH 26.4 L (27.0-32.0) pg MCHC 30.2 L (32.0-37.0) g/dL Immature Gran # 0.08 H (0.00-0.04) X 10*3/uL Neutrophils # 13.17 H (1.80-7.70) X 10*3/uL Sodium (137-145) mmol/L Chloride (98-107) mmol/L Carbon Dioxide (22-30) mmol/L BUN (7-17) mg/dL Glucose (74-99) mg/dL POC Glucose (mg/dL) 162 H 239 H (70-110) mg/dL Calcium (8.4-10.2) mg/dL AST (14-36) U/L Total Protein (6.3-8.2) g/dL Albumin (3.5-5.0) g/dL Crossmatch 08/03/21 08/03/21 08/03/21 Range/Units 00:55 08:12 10:47 WBC 12.2 H (4.50-10.00) X 10*3/uL RBC 2.87 L (4.10-5.20) X 10*6/uL Hgb 8.3 L (12.0-15.0) g/dL Hct 25.6 L (37.2-46.3) % MCH (27.0-32.0) pg MCHC (32.0-37.0) g/dL Immature Gran # (0.00-0.04) X 10*3/uL Neutrophils # 10.2 H (1.80-7.70) X 10*3/uL Sodium (137-145) mmol/L Chloride (98-107) mmol/L Carbon Dioxide (22-30) mmol/L BUN (7-17) mg/dL Glucose (74-99) mg/dL POC Glucose (mg/dL) 192 H (70-110) mg/dL Calcium (8.4-10.2) mg/dL AST (14-36) U/L Total Protein (6.3-8.2) g/dL Albumin (3.5-5.0) g/dL Crossmatch See Detail 08/03/21 08/03/21 Range/Units 10:47 12:43 WBC (4.50-10.00) X 10*3/uL RBC (4.10-5.20) X 10*6/uL Hgb (12.0-15.0) g/dL Hct (37.2-46.3) % MCH (27.0-32.0) pg MCHC (32.0-37.0) g/dL Immature Gran # (0.00-0.04) X 10*3/uL Neutrophils # (1.80-7.70) X 10*3/uL Sodium 135 L (137-145) mmol/L Chloride 110 H (98-107) mmol/L Carbon Dioxide 21 L (22-30) mmol/L BUN 24 H (7-17) mg/dL Glucose 214 H (74-99) mg/dL POC Glucose (mg/dL) 225 H (70-110) mg/dL Calcium 8.0 L (8.4-10.2) mg/dL AST 41 H (14-36) U/L Total Protein 5.3 L (6.3-8.2) g/dL Albumin 2.6 L (3.5-5.0) g/dL Crossmatch Microbiology - Last 24 Hours (Table) 08/01/21 11:56 Urine Culture - Preliminary Urine,Voided Gram Neg Bacilli Assessment and Plan (1) Encephalopathy Narrative/Plan: Multifactorial, medications, infection, postanesthesia. The family was contacted to patient with frequent reorientation will treat underlying infection hold pain medications with the patient is more alert. Current Visit: Yes Status: Acute Code(s): G93.40 - ENCEPHALOPATHY, UNSPECIFI ED SNOMED Code(s): 45122908 (2) UTI (urinary tract infection) Narrative/Plan: Patient urinary tract infection she was admitted on 08/01. This urine sample was drawn on 08/01 but not resulted until late last evening. Gram-negative bacilli with the speciation and sensitivities pending. Will start Rocephin IV and follow-up Current Visit: Yes Status: Acute Code(s): N39.0 - URINARY TRACT INFECTION, SITE NOT SPECIFIED SNOMED Code(s): 71378379 (3) Hypertension Narrative/Plan: The patient was initially hyperkalemic will restart medications Current Visit: Yes Status: Acute Code(s): I10 - ESSENTIAL (PRIMARY) HYPERTENSION SNOMED Code(s): 25921334 (4) Left femoral shaft fracture Narrative/Plan: Status post IM nailing continue per surgical recommendations Current Visit: Yes Status: Acute Code(s): S72.302A - UNSP FRACTURE OF SHAFT OF LEFT FEMUR, INIT FOR CLOS FX SNOMED Code(s): 11522016
[2021-08-03 17:38] LABS: Glucose,Whole Blood 190 mg/dL (70-110)
[2021-08-03] MEDS: LINAGLIPTIN 5 MG TABLET PO SCH (17:46)
--- NOTE | 2021-08-03 18:16 | XR ---
EXAMINATION TYPE: XR chest 1V portable DATE OF EXAM: 08/03/2021 COMPARISON: 07/31/2021 HISTORY: Single view TECHNIQUE: Single view FINDINGS: There is some infiltrate and atelectasis in the left lower lung field. There is coarsening of interstitial markings. No obvious heart failure. IMPRESSION: Mild pulmonary fibrosis. Increased atelectasis and interstitial infiltrate left lower lob e compared to recent exam.
--- NOTE | 2021-08-03 19:34 | CT ---
EXAMINATION TYPE: CT brain wo con DATE OF EXAM: 08/03/2021 COMPARISON: None HISTORY: Fall. Headache. CT DLP: mGycm Automated exposure control for dose reduction was used. Images of the brain obtained with no contrast. There is some cerebral cortical atrophy. There is patchy hypodensity in the periventricular white mat ter. There is no mass effect or midline shift. No sign of intracranial hemorrhage. The calvarium is i ntact. IMPRESSION: Mild atrophy. Chronic small vessel ischemia. No acute intracranial abnormality.
[2021-08-03 20:40] LABS: Glucose,Whole Blood 201 mg/dL (70-110)
[2021-08-03] MEDS: SENNOSIDES-DOCUSATE SODIUM 1 EACH TAB PO SCH (20:50)
[2021-08-03] MEDS: INSULIN DETEMIR (LEVEMIR) 100 UNIT/ML SYR SQ SCH (20:54)
[2021-08-04] MEDS: traMADol 50 MG TAB PO SCH ×4 (02:53→21:34)
[2021-08-04] MEDS: SODIUM CHLORIDE 0.9% 1,000 ML IV SCH ×2 (02:53→11:02)
[2021-08-04] MEDS ORDERED: IBUPROFEN 400 MG TAB PO STA (04:42)
[2021-08-04 06:52] LABS: Glucose,Whole Blood 134 mg/dL (70-110)
[2021-08-04] MEDS: INSULIN ASPART (NovoLOG) 100 UNIT/ML VIAL SQ SCH ×4 (08:55→21:33)
[2021-08-04] MEDS ORDERED: ACETAMINOPHEN IV (For NPO) 1,000 MG in EMPTY BAG 1 BAG IVPB SCH (09:00)
[2021-08-04 09:16] LABS: Basophils # (A) 0.05 X 10*3/uL (0.00-0.10); Basophils % (A) 0.4 %; Eosinophils % (A) 1.7 %; HCT 25.6 % (37.2-46.3); HGB 7.8 g/dL (12.0-15.0); Immature Grans, Automated 0.5 %; Lymphocytes # (A) 1.28 X 10*3/uL (0.90-5.00); Lymphocytes % (A) 10.9 %; MCH 27.1 pg (27.0-32.0); MCHC 30.5 g/dL (32.0-37.0); MCV 88.9 fL (80.0-97.0); Mean Platelet Volume 10.8 fL (9.5-12.2); Monocytes # (A) 0.99 X 10*3/uL (0.20-1.00); Monocytes % (A) 8.5 %; NRBC Per 100 WBC 0 /100 WBCS (0.0-0.0); Neutrophils # (A) 9.11 X 10*3/uL (1.80-7.70); Platelet Count 164 X 10*3/uL (140-440); RBC 2.88 X 10*6/uL (4.10-5.20); WBC 11.69 X 10*3/uL (4.50-10.00)
--- NOTE | 2021-08-04 09:18 | P.PN ---
Subjective Progress Note Date: 08/04/21 Principal diagnosis: Status post left femur retrograde nailing This is an 80 year-old female post left femur ORIF with retrograde nail. This is post-op day 2. The patient was evaluated at the bedside today with Dr. Castano. The patient is lethargic but does respond to verbal stimuli. The patient has not been up with physical therapy yet. She has not received anything for pain for over 24 hours. The family is concerned of her current mental status and she is not moving her arms or right leg. Objective - Vital Signs Vital signs: Vital Signs Temp 97.6 F 08/04/21 04:08 Pulse 85 08/04/21 04:08 Resp 15 08/04/21 04:08 BP 141/82 08/04/21 04:08 Pulse Ox 97 08/04/21 04:08 FiO2 Intake & Output 08/03/21 08/04/21 08/04/21 18:59 06:59 18:59 Intake Total 1680 Output Total 200 750 Balance 1480 -750 Intake: IV 1560 Sodium Chloride 0.9% 1, 1560 000 ml @ 130 mls/hr IV . Q7H42M [facility] Rx#:[id number] Oral 120 Output: Urine 200 750 Other: Voiding Method Indwelling Catheter Indwelling Catheter # Bowel Movements 0 0 - Exam The patient does not appear in acute distress. She is lethargic but arouses to verbal and painful stimuli. Dressing is clean dry and intact. Incision appears fine with no erythema or active drainage. Calf is soft and nontender. Sensation and circulatory status is intact. - Labs CBC & Chem 7: 08/04/21 05:33 08/04/21 05:33 Labs: Abnormal Lab Results - Last 24 Hours (Table) 08/03/21 08/03/21 08/03/21 Range/Units 10:47 10:47 12:43 WBC 12.2 H (3.8-10.6) k/uL RBC 2.87 L (3.80-5.40) m/uL Hgb 8.3 L (11.4-16.0) gm/dL Hct 25.6 L (34.0-46.0) % MCHC (32.0-37.0) g/dL Immature Gran # (0.00-0.04) X 10*3/uL Neutrophils # 10.2 H (1.3-7.7) k/uL Sodium 135 L (137-145) mmol/L Chloride 110 H (98-107) mmol/L Carbon Dioxide 21 L (22-30) mmol/L BUN 24 H (7-17) mg/dL Glucose 214 H (74-99) mg/dL POC Glucose (mg/dL) 225 H (70-110) mg/dL Calcium 8.0 L (8.4-10.2) mg/dL AST 41 H (14-36) U/L Total Protein 5.3 L (6.3-8.2) g/dL Albumin 2.6 L (3.5-5.0) g/dL 08/03/21 08/03/21 08/04/21 Range/Units 17:37 20:34 05:33 WBC 11.69 H (3.8-10.6) k/uL RBC 2.88 L (3.80-5.40) m/uL Hgb 7.8 L (11.4-16.0) gm/dL Hct 25.6 L (34.0-46.0) % MCHC 30.5 L (32.0-37.0) g/dL Immature Gran # 0.06 H (0.00-0.04) X 10*3/uL Neutrophils # 9.11 H (1.3-7.7) k/uL Sodium (137-145) mmol/L Chloride (98-107) mmol/L Carbon Dioxide (22-30) mmol/L BUN (7-17) mg/dL Glucose (74-99) mg/dL POC Glucose (mg/dL) 190 H 201 H (70-110) mg/dL Calcium (8.4-10.2) mg/dL AST (14-36) U/L Total Protein (6.3-8.2) g/dL Albumin (3.5-5.0) g/dL 08/04/21 Range/Units 06:50 WBC (3.8-10.6) k/uL RBC (3.80-5.40) m/uL Hgb (11.4-16.0) gm/dL Hct (34.0-46.0) % MCHC (32.0-37.0) g/dL Immature Gran # (0.00-0.04) X 10*3/uL Neutrophils # (1.3-7.7) k/uL Sodium (137-145) mmol/L Chloride (98-107) mmol/L Carbon Dioxide (22-30) mmol/L BUN (7-17) mg/dL Glucose (74-99) mg/dL POC Glucose (mg/dL) 134 H (70-110) mg/dL Calcium (8.4-10.2) mg/dL AST (14-36) U/L Total Protein (6.3-8.2) g/dL Albumin (3.5-5.0) g/dL Microbiology - Last 24 Hours (Table) 08/01/21 11:56 Urine Culture - Final Urine,Voided Klebsiella oxytoca Assessment and Plan (1) Fracture of neck of right humerus Current Visit: Yes Status: Acute Code(s): S42.211A - UNSP DISP FX OF SURGICAL NECK OF RIGHT HUMERUS, INIT SNOMED Code(s): 021649485 (2) Fracture of neck of left humerus Current Visit: Yes Status: Acute Code(s): S42.212A - UNSP DISP FX OF SURGICAL NECK OF LEFT HUMERUS, INIT SNOMED Code(s): 537471914 (3) Fall Current Visit: Yes Status: Acute Code(s): W19.XXXA - UNSPECIFIED FALL, INITIAL ENCOUNTER SNOMED Code(s): 4123554 (4) Left femoral shaft fracture Current Visit: Yes Status: Acute Code(s): S72.302A - UNSP FRACTURE OF SHAFT OF LEFT FEMUR, INIT FOR CLOS FX SNOMED Code(s): 69050695 Plan: The clinical findings were discussed with the patient's family. The case was discussed with Dr. Yoo and Dr. Castano. The patient may have Toradol per internal medicine for pain control. Avoid narcotics if able. She may start PT and OT today. Weightbearing as tolerated to the left lower extremity and non- weightbearing to the upper extremities. Once medically stable, she will be transferred to skilled rehab.
[2021-08-04 09:33] LABS: African American GFR (CKD) 61.6 (60.0-200.0); Anion Gap 10.3 mmol/L (10.00-18.00); Calcium 8.2 mg/dL (8.7-10.3); Carbon Dioxide 19.7 mmol/L (20.0-27.5); Non-African American GFR(CKD) 53.2 (60.0-200.0); Potassium 4.8 mmol/L (3.5-5.5)
--- NOTE | 2021-08-04 09:54 | XR ---
EXAMINATION TYPE: XR chest 1V portable DATE OF EXAM: 08/04/2021 COMPARISON: X-ray dated 08/03/2021 HISTORY: Shortness of breath TECHNIQUE: Single frontal view of the chest is obtained. FINDINGS: Persistent signs suggestive of pulmonary edema without significant improvement. Again noted are atele ctasis in the mid to lower lung zones. Suspected pleural effusions more on the left side. Increased c ardiac transverse diameter. Degenerative changes of the thoracic spine. IMPRESSION: No significant interval change as described above.
[2021-08-04] MEDS: ATORVASTATIN 40 MG TAB PO SCH (11:01)
[2021-08-04] MEDS: METOPROLOL TARTRATE 50 MG TAB PO SCH ×2 (11:01→21:32)
[2021-08-04] MEDS: ENOXAPARIN 30 MG/0.3 ML SYRINGE SQ SCH ×2 (11:01→21:32)
[2021-08-04] MEDS: PANTOPRAZOLE 40 MG TABLET PO SCH (11:01)
[2021-08-04 11:20] LABS: Glucose,Whole Blood 170 mg/dL (70-110)
--- NOTE | 2021-08-04 11:49 | P.PN ---
Subjective Progress Note Date: 08/04/21 (delayed charting seen at 0830) Patient is an 80-year-old female with type II DM, Parkinson's, and hypertension who presents to the emergency room after a fall. Shoulder CTs in the emergency room revealed bilateral shoulder fractures as well as a left distal femur fracture. Chest x-ray was unremarkable. Laboratory evaluation was remarkable for WBC count of 19.2, troponin 0.155, magnesium 1.3, glucose of 218. Her troponin was elevated. We were asked to consult for cardiac risk stratification. Her echo was done which showed a preserved ejection fraction but moderate pulm HTN. She underwent IM nailing on 08/02/21. She developed some altered mental status post surgery. Patient seen and examined at bedside. She is very lethragic but does respond to verbal stimuli. She is able to follow some simple commands. She does respond with speech difficulties but is repetitive. Discussed with family that I think she has a hypoactive delirium. We talked about proceeding with treating her pain as a potential cause, as well as frequent reorientation, stimulation, attempting to do some oral intake with Yogurt or applesauce Family at bedside updated extensively. All questions answered. General: nontoxic, no distress, appears at stated age Derm: warm, dry, bilateral arm slings Head: atraumatic, normocephalic, symmetric Eyes: EOMI, no lid lag, anicteric sclera Mouth: no lip lesion, mucus membranes dry Cardiovascular: S1S2 reg, no murmur, positive posterior tibial pulse bilateral, Lungs: Coarse breath sounds bilateral, no rhonchi, no rales , no accessory muscle use Abdominal: soft, nontender to palpation, no guarding, no appreciable organomegaly Neuro: Equal round and delay, checking things around the room, unable to stick her tongue out to command, light touch intact all 4 extremities, she is able to gently squeeze my hand on the right, no focal neuro deficits Psych: lethargic, flat affect Assessment/plan: Patient is an 80-year-old female admitted for bilateral humerus fractures and left distal femoral fracture. Acute toxic encephalopathy - suspect hypoactive delirium - hold narcotic agents - start toradol - consult neurology - CXR without PNA, but does show fluid overload, will decrease fluids resume aldactone Possibly UTI - on rocephin - follow urine culture Elevated troponin with without signs of chest pain -Likely secondary to stress versus cardiac contusion from fall -Echocardiogram,normal -Cardio Diabetes mellitus type 2 - SSI - Follow BS - A1C 6.9 Parkinson's disease - sinemet Moderate pulm HTN on echo - outpatient follow-up Iron deficiency anemia with acute blood loss - s/p 1 unit pRBC - follow CBC - ferrous sulfate Leukocytosis, resolved -Likely stress-induced TIKI, resolved Hyperkalemia, resolved Hypomagnesemia, resolved Thank you for allowing us to participate in the care of this pleasant patient. Do not hesitate to contact us with questions. Someone can be reached from the [facility] hospitalist group all hours of the day at [phone] or via [employer]. Active Medications Generic Name Dose Route Start Last Admin Trade Name Freq PRN Reason Stop Dose Admin Acetaminophen 650 mg 08/03/21 15:45 Acetaminophen Tab 325 Mg Tab PO Q6HR PRN Fever and/ or Pain Atorvastatin Calcium 40 mg 08/01/21 09:00 08/04/21 11:01 Atorvastatin 40 Mg Tab PO 40 mg DAILY EDENILSON Administration Carbidopa/Levodopa 1 each 08/01/21 14:00 08/03/21 08:30 Carbidopa-Levodopa 25-100 Mg 1 Each Tab PO 1 each DAILY@1400 EDENILSON Administration Enoxaparin Sodium 30 mg 08/03/21 09:00 08/04/21 11:01 Enoxaparin 30 Mg/0.3 Ml Syringe SQ 30 mg Q12HR EDENILSON Administration Ferrous Sulfate 325 mg 08/03/21 12:30 08/03/21 08:30 Ferrous Sulfate 325 Mg Tab PO 325 mg W/LUNCH EDENILSON Administration Hydromorphone HCl 1 mg 07/31/21 21:19 08/02/21 02:45 Hydromorphone 1 Mg/Ml 1 Ml Syringe IVP 1 mg Q3HR PRN Administration Moderate Pain Hydromorphone HCl 0.125 mg 08/02/21 11:07 Hydromorphone 0.5 Mg/0.5 Ml Syringe IVP Q3HR PRN Pain Scale 1 to 3 Hydromorphone HCl 0.25 mg 08/02/21 11:07 Hydromorphone 0.5 Mg/0.5 Ml Syringe IVP Q3HR PRN Pain Scale 4 to 6 Hydromorphone HCl 0.5 mg 08/02/21 11:07 08/03/21 03:43 Hydromorphone 0.5 Mg/0.5 Ml Syringe IVP 0.5 mg Q3HR PRN Administration Pain Scale 7 to 10 Ceftriaxone Sodium 1 gm/ 50 mls @ 100 mls/hr 08/03/21 16:00 08/04/21 11:01 Sodium Chloride IVPB 100 mls/hr Q24HR EDENILSON Administration Protocol Sodium Chloride 1,000 mls @ 75 mls/hr 08/04/21 10:00 08/04/21 11:02 Saline 0.9% IV 75 mls/hr .[id number] EDENILSON Administration Insulin Aspart 0 unit 08/01/21 07:30 08/04/21 08:55 Insulin Aspart (Novolog) 100 Unit/Ml Vial SQ Not Given ACHS [facility] Protocol Insulin Detemir 24 unit 08/02/21 21:00 08/03/21 20:54 Insulin Detemir (Levemir) 100 Unit/Ml Syr SQ 24 unit HS EDENILSON Administration Ketorolac Tromethamine 15 mg 08/04/21 12:00 Ketorolac 15 Mg/Ml 1 Ml Vial IVP 08/05/21 12:01 Q6HR [facility] Linagliptin 5 mg 08/02/21 18:30 08/03/21 17:46 Linagliptin 5 Mg Tablet PO Not Given PC-SUPPER EDENILSON Metoprolol Tartrate 50 mg 08/01/21 09:00 08/04/21 11:01 Metoprolol Tartrate 50 Mg Tab PO 50 mg BID EDENILSON Administration Naloxone HCl 0.2 mg 07/31/21 21:19 Naloxone 0.4 Mg/Ml 1 Ml Vial IV Q2M PRN Opioid Reversal Ondansetron HCl 4 mg 07/31/21 21:19 08/01/21 02:20 Ondansetron 4 Mg/2 Ml Vial IVP 4 mg Q8HR PRN Administration Nausea And Vomiting Pantoprazole Sodium 40 mg 08/02/21 09:00 08/04/21 11:01 Pantoprazole 40 Mg Tablet PO 40 mg AC-BRKFST EDENILSON Administration Senna/Docusate Sodium 2 each 08/02/21 21:00 08/03/21 20:50 Sennosides-Docusate Sodium 1 Each Tab PO 2 each HS EDENILSON Administration Tramadol HCl 50 mg 08/03/21 10:00 08/04/21 08:57 Tramadol 50 Mg Tab PO Not Given Q6H [facility] Objective - Vital Signs Vital signs: Vital Signs Temp 97.6 F 08/04/21 04:08 Pulse 85 08/04/21 04:08 Resp 15 08/04/21 04:08 BP 141/82 08/04/21 04:08 Pulse Ox 97 08/04/21 04:08 FiO2 Intake & Output 08/03/21 08/04/21 08/04/21 18:59 06:59 18:59 Intake Total 1680 Output Total 200 750 Balance 1480 -750 Intake: IV 1560 Sodium Chloride 0.9% 1, 1560 000 ml @ 130 mls/hr IV . Q7H42M [facility] Rx#:[id number] Oral 120 Output: Urine 200 750 Other: Voiding Method Indwelling Catheter Indwelling Catheter # Bowel Movements 0 0 - Labs CBC & Chem 7: 08/04/21 05:33 08/04/21 05:33 Labs: Abnormal Lab Results - Last 24 Hours (Table) 08/03/21 08/03/21 08/03/21 Range/Units 12:43 17:37 20:34 WBC (4.50-10.00) X 10*3/uL RBC (4.10-5.20) X 10*6/uL Hgb (12.0-15.0) g/dL Hct (37.2-46.3) % MCHC (32.0-37.0) g/dL Immature Gran # (0.00-0.04) X 10*3/uL Neutrophils # (1.80-7.70) X 10*3/uL Carbon Dioxide (20.0-27.5) mmol/L Est GFR (CKD-EPI)NonAf (60.0-200.0) BUN/Creatinine Ratio (12.00-20.00) Ratio Glucose (70-110) mg/dL POC Glucose (mg/dL) 225 H 190 H 201 H (70-110) mg/dL Calcium (8.7-10.3) mg/dL 08/04/21 08/04/21 08/04/21 Range/Units 05:33 05:33 06:50 WBC 11.69 H (4.50-10.00) X 10*3/uL RBC 2.88 L (4.10-5.20) X 10*6/uL Hgb 7.8 L (12.0-15.0) g/dL Hct 25.6 L (37.2-46.3) % MCHC 30.5 L (32.0-37.0) g/dL Immature Gran # 0.06 H (0.00-0.04) X 10*3/uL Neutrophils # 9.11 H (1.80-7.70) X 10*3/uL Carbon Dioxide 19.7 L (20.0-27.5) mmol/L Est GFR (CKD-EPI)NonAf 53.2 L (60.0-200.0) BUN/Creatinine Ratio 23.00 H (12.00-20.00) Ratio Glucose 176 H (70-110) mg/dL POC Glucose (mg/dL) 134 H (70-110) mg/dL Calcium 8.2 L (8.7-10.3) mg/dL 08/04/21 Range/Units 11:18 WBC (4.50-10.00) X 10*3/uL RBC (4.10-5.20) X 10*6/uL Hgb (12.0-15.0) g/dL Hct (37.2-46.3) % MCHC (32.0-37.0) g/dL Immature Gran # (0.00-0.04) X 10*3/uL Neutrophils # (1.80-7.70) X 10*3/uL Carbon Dioxide (20.0-27.5) mmol/L Est GFR (CKD-EPI)NonAf (60.0-200.0) BUN/Creatinine Ratio (12.00-20.00) Ratio Glucose (70-110) mg/dL POC Glucose (mg/dL) 170 H (70-110) mg/dL Calcium (8.7-10.3) mg/dL Microbiology - Last 24 Hours (Table) 08/01/21 11:56 Urine Culture - Final Urine,Voided Klebsiella oxytoca
[2021-08-04] MEDS: CARBIDOPA-LEVODOPA 25-100 MG 1 EACH TAB PO SCH (12:56)
[2021-08-04] MEDS: FERROUS SULFATE 325 MG TAB PO SCH (12:56)
[2021-08-04] MEDS: SPIRONOLACTONE 25 MG TAB PO SCH (12:56)
[2021-08-04] MEDS: KETOROLAC 15 MG/ML 1 ML VIAL IVP SCH ×2 (12:57→17:44)
[2021-08-04 16:40] LABS: Glucose,Whole Blood 161 mg/dL (70-110)
[2021-08-04] MEDS: LINAGLIPTIN 5 MG TABLET PO SCH (17:45)
[2021-08-04 19:55] LABS: Glucose,Whole Blood 161 mg/dL (70-110)
--- NOTE | 2021-08-04 21:00 | P.CNNES ---
History of Present Illness Consult date: 08/04/21 Requesting physician: Marisa Castano Reason for Consult: Altered mentation History of Present Illness: Patient is a 80 years old right-handed female who came to the hospital after she suffered from a fall. Patient apparently lives at home with her children. I spoke to patient's daughter Katie, who mentioned that patient tripped on a little lip on the pavement and she fell. She sometimes uses walker which she is recommended to. Her daughter she is "stubborn". At the time of the fall she was not using any device. Patient's daughter believes that her head may have hit against the counter as she was best at the counter. Patient's daughter believes that she has delayed speech and mild slurring. As per EMS flow sheet, when they arrived, patient was laying on the floor on her left side. Patient was alert and oriented 4 and complained of right shoulder and left knee pain. Patient apparently is tripped on the step into the restaurant. No loss of consciousness. Patient denied any head neck or back pain. Patient denied hitting her head and was not on blood thinners. No deformities or bleeding noted. Patient was shifted to a sitting position without incident. Patient moved her feet underneath her and EMS gently lifted her up from her pants. While lifting the patient heard and felt up loud pop and screamed in pain. Patient was lowered back down to a sitting position. Patient was given 50 g of fentanyl for pain relief. Patient's blood pressure at the scene was 193/142, pulse rate 133 and saturation 95%. Patient's WBC was 19.2 hemoglobin 10.5 platelets 181. The hemoglobin went down to 6.8 for which she received transfusion. Her recent CBC with hemoglobin 7.8, hematocrit 25.6 and platelets 164 the in home caregiver is 11.69. Her BUN is 23 creatinine 1.0. Troponins are borderline 0.155 and 0.232. Her cholesterol is 126, LDL 56 HDL 51 and triglycerides 90.5. TSH normal 0.924. UA shows cloudy urine, large leukocyte esterase, 60 wbc's, rare bacteria. Urine cultures have grown Klebsiella oxytoca. Patient is on ceftriaxone. Patient's x-ray of the hip revealed acute displaced comminuted fracture of the distal shaft of the femur. X-ray of the shoulders revealed suspected anterior inferior humerus dislocation with Hill-Sachs fracture with a large bony fragment of the right greater tuberosity. Left proximal humerus fracture with suspected intra-articular extension. Per nursing report, patient is not swallowing well. She is alert oriented 2. Patient had undergone left hip arthroplasty over the weekend. Patient's both arms are in a sling. Patient is on pain medications for pain. Patient denies any history of strokes. She states that she lives with her children. She walks with her kids. I asked her which child I should gather information about her, but she could not give an answer. Review of Systems Patient denies any abdominal pain. ROS unobtainable: due to mental status Past Medical History Past Medical History: Diabetes Mellitus, Hypertension Additional Past Medical History / Comment(s): Parkinson's History of Any Multi-Drug Resistant Organisms: None Reported Past Surgical History: Cholecystectomy, Hysterectomy, Tubal Ligation Additional Past Surgical History / Comment(s): Cataract surgery Past Anesthesia/Blood Transfusion Reactions: No Reported Reaction Past Psychological History: No Psychological Hx Reported Smoking Status: Never smoker Past Alcohol Use History: None Reported Past Drug Use History: None Reported - Past Family History Mother Family Medical History: Hyperlipidemia Medications and Allergies Home Medications Medication Instructions Recorded Confirmed Type Ascorbic Acid [Vitamin C] 500 mg PO DAILY 04/17/20 07/31/21 History Calcium Carbonate [Calcium] 600 mg PO PC-SUPPER 04/17/20 07/31/21 History Carbidopa-Levodopa 25-100 mg 1 tab PO DAILY@1400 04/17/20 07/31/21 History [Sinemet 25-100] Cholecalciferol [Vitamin D3 (25 25 mcg PO PC-SUPPER 04/17/20 07/31/21 History Mcg = 1000 Iu)] Glimepiride [Amaryl] 4 mg PO W/BRKFST 04/17/20 07/31/21 History Insulin Degludec [Tresiba 24 - 30 units SQ HS 04/17/20 07/31/21 History Flextouch U-100] Losartan Potassium 100 mg PO AC-BRKFST 04/17/20 07/31/21 History Omeprazole 20 mg PO DAILY 04/17/20 07/31/21 History Vitamin B Complex 1 cap PO DAILY 04/17/20 07/31/21 History metFORMIN HCL [Glucophage] 500 mg PO PC-BID 04/17/20 07/31/21 History sitaGLIPtin [Januvia] 50 mg PO PC-SUPPER 04/17/20 07/31/21 History Ascorbic Acid [Vitamin C] 500 mg PO DAILY 07/31/21 07/31/21 History Fish Oil/Dha/Epa [Fish Oil 1,200 1 cap PO PC-SUPPER 07/31/21 07/31/21 History mg Fish Oil] Spironolactone [Aldactone] 25 mg PO DAILY 07/31/21 07/31/21 History Allergies Allergy/AdvReac Type Severity Reaction Status Date / Time tramadol Allergy Mild Rash/Hives Verified 08/03/21 15:48 acetaminophen [From Vicodin] Allergy Rash/Hives Verified 07/31/21 22:28 codeine Allergy Rash/Hives Verified 07/31/21 22:28 hydrocodone [From Vicodin] Allergy Rash/Hives Verified 07/31/21 22:28 iodine Allergy Anaphylaxis Verified 07/31/21 22:28 latex Allergy Rash/Hives Verified 07/31/21 22:28 pioglitazone [From Actos] Allergy Rash/Hives Verified 07/31/21 22:28 shellfish derived [Shellfish] Allergy Rash/Hives Verified 07/31/21 22:28 Sulfa (Sulfonamide Allergy Rash/Hives Verified 07/31/21 22:28 Antibiotics) Physical Examination - Vital Signs Vital Signs: Vital Signs Temp Pulse Resp BP Pulse Ox 08/04/21 04:08 97.6 F 85 15 141/82 97 08/03/21 20:11 98.7 F 89 14 174/82 97 08/03/21 17:21 98.4 F 85 18 149/82 94 L 08/03/21 15:45 84 162/69 08/03/21 12:38 99.2 F 88 19 181/82 91 L Intake and Output 08/03/21 08/04/21 08/04/21 22:59 06:59 14:59 Intake Total 1680 Output Total 200 650 Balance 1480 -650 Intake: IV 1560 Sodium Chloride 0.9% 1, 1560 000 ml @ 130 mls/hr IV . Q7H42M [facility] Rx#:[id number] Oral 120 Output: Urine 200 650 Other: Voiding Method Indwelling Catheter # Bowel Movements 0 Patient is an elderly female, who appears obviously encephalopathic. Patient is awake, but spacey, encephalopathic, does not follow commands typically because of altered mentation. She has a very prolonged latency time to answer any questions. A lot of time, she would just not answer. She states it is February and the year is 2021. She knows that she is in [facility]. She could not tell what building is it. I even give her choices including hospital, hotel, home, or a prison, but patient could not tell what it is. Speech is slow and language functions are normal. She could name pen, but could not name knuckles or eyeglasses. She could repeat very well. Attention, concentration is significantly limited and fund of knowledge is difficult to assess because of mentation. On cranial examination, pupils are equal, round and reacting to light, visual head could not be tested, as she would not follow directions. When I was moving fingers in both visual head, she would only say "right", but could not tell, which side she meant, her's or the examiners. Her extraocular muscles are intact with no nystagmus. Face at time appears to have very minimal left-sided asymmetry on active testing only. Her tongue protrudes to the midline. Palatal elevation and sensation normal could not be tested, hearing is decreased and shoulder shrug could not be tested because of her shoulder fracture. Facial sensations could not be tested. She has mild jaw tremors. On muscle strength testing, patient's both arms are in a sling. However she would not even squeeze my hands at all on either sides. She would not wiggle her fingers. Would not wiggle her toes. Deep tendon reflexes are absent all over and plantar is up on the right, flat on the left. Sensory to touch could not be assessed because of her mental status. Cerebellar function could not be tested because of shoulder fractures. Tone and bulk of muscles could not be tested. No obvious atrophy. Gait not ambulatory at this time. On general examination, there is no carotid bruit or murmur, S1-S2 audible. Abdomen is soft nontender. No organomegaly, bowel sounds present. Chest is clear. Patient has peripheral edema. Results - Laboratory Findings CBC and BMP: 08/06/21 05:48 08/04/21 05:33 Abnormal Lab Findings: Abnormal Labs 07/31/21 07/31/21 07/31/21 20:16 22:55 22:55 WBC 19.2 H RBC Hgb 10.5 L Hct 32.3 L MCH MCHC Immature Gran # Neutrophils # 17.5 H Sodium Potassium Chloride Carbon Dioxide BUN Creatinine Est GFR (CKD-EPI)NonAf BUN/Creatinine Ratio Glucose 218 H POC Glucose (mg/dL) 207 H Hemoglobin A1c Calcium Magnesium 1.3 L Iron AST Troponin I Total Protein Albumin Urine Appearance Urine Protein Urine Glucose (UA) Urine Ketones Urine Nitrite Ur Leukocyte Esterase Urine WBC Urine Bacteria Hyaline Casts Urine Mucus Crossmatch 07/31/21 08/01/21 08/01/21 22:55 07:05 07:05 WBC 16.15 H RBC 3.44 L Hgb 8.9 L Hct 29.5 L MCH 25.9 L MCHC 30.2 L Immature Gran # Neutrophils # Sodium Potassium Chloride Carbon Dioxide BUN 19 H Creatinine Est GFR (CKD-EPI)NonAf BUN/Creatinine Ratio Glucose 273 H POC Glucose (mg/dL) Hemoglobin A1c Calcium Magnesium Iron AST Troponin I 0.155 H* Total Protein Albumin Urine Appearance Urine Protein Urine Glucose (UA) Urine Ketones Urine Nitrite Ur Leukocyte Esterase Urine WBC Urine Bacteria Hyaline Casts Urine Mucus Crossmatch 08/01/21 08/01/21 08/01/21 07:05 07:48 10:41 WBC RBC Hgb Hct MCH MCHC Immature Gran # Neutrophils # Sodium Potassium Chloride Carbon Dioxide BUN Creatinine Est GFR (CKD-EPI)NonAf BUN/Creatinine Ratio Glucose POC Glucose (mg/dL) 264 H Hemoglobin A1c Calcium Magnesium Iron AST Troponin I 0.232 H* 0.210 H* Total Protein Albumin Urine Appearance Urine Protein Urine Glucose (UA) Urine Ketones Urine Nitrite Ur Leukocyte Esterase Urine WBC Urine Bacteria Hyaline Casts Urine Mucus Crossmatch 08/01/21 08/01/21 08/01/21 10:41 11:00 11:02 WBC RBC Hgb Hct MCH MCHC Immature Gran # Neutrophils # Sodium Potassium Chloride Carbon Dioxide BUN Creatinine Est GFR (CKD-EPI)NonAf BUN/Creatinine Ratio Glucose POC Glucose (mg/dL) 205 H Hemoglobin A1c 6.9 H Calcium Magnesium Iron 49 L AST Troponin I Total Protein Albumin Urine Appearance Urine Protein Urine Glucose (UA) Urine Ketones Urine Nitrite Ur Leukocyte Esterase Urine WBC Urine Bacteria Hyaline Casts Urine Mucus Crossmatch 08/01/21 08/01/21 08/01/21 11:56 17:19 20:38 WBC RBC Hgb Hct MCH MCHC Immature Gran # Neutrophils # Sodium Potassium Chloride Carbon Dioxide BUN Creatinine Est GFR (CKD-EPI)NonAf BUN/Creatinine Ratio Glucose POC Glucose (mg/dL) 189 H 175 H Hemoglobin A1c Calcium Magnesium Iron AST Troponin I Total Protein Albumin Urine Appearance Cloudy H Urine Protein 1+ H Urine Glucose (UA) 2+ H Urine Ketones Trace H Urine Nitrite Positive H Ur Leukocyte Esterase Large H Urine WBC 60 H Urine Bacteria Rare H Hyaline Casts 16 H Urine Mucus Rare H Crossmatch 08/02/21 08/02/21 08/02/21 05:58 05:58 07:21 WBC 15.6 H RBC 3.30 L Hgb 9.1 L Hct 29.1 L MCH MCHC Immature Gran # Neutrophils # Sodium Potassium 5.3 H Chloride Carbon Dioxide BUN 23 H Creatinine 1.13 H Est GFR (CKD-EPI)NonAf BUN/Creatinine Ratio Glucose 152 H POC Glucose (mg/dL) 173 H Hemoglobin A1c Calcium Magnesium Iron AST Troponin I Total Protein Albumin Urine Appearance Urine Protein Urine Glucose (UA) Urine Ketones Urine Nitrite Ur Leukocyte Esterase Urine WBC Urine Bacteria Hyaline Casts Urine Mucus Crossmatch 08/02/21 08/02/21 08/02/21 11:33 17:21 18:20 WBC 15.63 H RBC 2.58 L Hgb 6.8 L* Hct 22.5 L MCH 26.4 L MCHC 30.2 L Immature Gran # 0.08 H Neutrophils # 13.17 H Sodium Potassium Chloride Carbon Dioxide BUN Creatinine Est GFR (CKD-EPI)NonAf BUN/Creatinine Ratio Glucose POC Glucose (mg/dL) 169 H 162 H Hemoglobin A1c Calcium Magnesium Iron AST Troponin I Total Protein Albumin Urine Appearance Urine Protein Urine Glucose (UA) Urine Ketones Urine Nitrite Ur Leukocyte Esterase Urine WBC Urine Bacteria Hyaline Casts Urine Mucus Crossmatch 08/02/21 08/03/21 08/03/21 21:13 00:55 08:12 WBC RBC Hgb Hct MCH MCHC Immature Gran # Neutrophils # Sodium Potassium Chloride Carbon Dioxide BUN Creatinine Est GFR (CKD-EPI)NonAf BUN/Creatinine Ratio Glucose POC Glucose (mg/dL) 239 H 192 H Hemoglobin A1c Calcium Magnesium Iron AST Troponin I Total Protein Albumin Urine Appearance Urine Protein Urine Glucose (UA) Urine Ketones Urine Nitrite Ur Leukocyte Esterase Urine WBC Urine Bacteria Hyaline Casts Urine Mucus Crossmatch See Detail 08/03/21 08/03/21 08/03/21 10:47 10:47 12:43 WBC 12.2 H RBC 2.87 L Hgb 8.3 L Hct 25.6 L MCH MCHC Immature Gran # Neutrophils # 10.2 H Sodium 135 L Potassium Chloride 110 H Carbon Dioxide 21 L BUN 24 H Creatinine Est GFR (CKD-EPI)NonAf BUN/Creatinine Ratio Glucose 214 H POC Glucose (mg/dL) 225 H Hemoglobin A1c Calcium 8.0 L Magnesium Iron AST 41 H Troponin I Total Protein 5.3 L Albumin 2.6 L Urine Appearance Urine Protein Urine Glucose (UA) Urine Ketones Urine Nitrite Ur Leukocyte Esterase Urine WBC Urine Bacteria Hyaline Casts Urine Mucus Crossmatch 08/03/21 08/03/21 08/04/21 17:37 20:34 05:33 WBC 11.69 H RBC 2.88 L Hgb 7.8 L Hct 25.6 L MCH MCHC 30.5 L Immature Gran # 0.06 H Neutrophils # 9.11 H Sodium Potassium Chloride Carbon Dioxide BUN Creatinine Est GFR (CKD-EPI)NonAf BUN/Creatinine Ratio Glucose POC Glucose (mg/dL) 190 H 201 H Hemoglobin A1c Calcium Magnesium Iron AST Troponin I Total Protein Albumin Urine Appearance Urine Protein Urine Glucose (UA) Urine Ketones Urine Nitrite Ur Leukocyte Esterase Urine WBC Urine Bacteria Hyaline Casts Urine Mucus Crossmatch 08/04/21 08/04/21 05:33 06:50 WBC RBC Hgb Hct MCH MCHC Immature Gran # Neutrophils # Sodium Potassium Chloride Carbon Dioxide 19.7 L BUN Creatinine Est GFR (CKD-EPI)NonAf 53.2 L BUN/Creatinine Ratio 23.00 H Glucose 176 H POC Glucose (mg/dL) 134 H Hemoglobin A1c Calcium 8.2 L Magnesium Iron AST Troponin I Total Protein Albumin Urine Appearance Urine Protein Urine Glucose (UA) Urine Ketones Urine Nitrite Ur Leukocyte Esterase Urine WBC Urine Bacteria Hyaline Casts Urine Mucus Crossmatch Assessment and Plan Assessment: * Altered mental status, likely due to toxic metabolic encephalopathy. Reasons multifactorial including acute pain, and being on pain medication * Klebsiella oxytoca UTI, on Rocephin. * Anemia * Status post fall, with bilateral shoulder and left hip fracture. * Obesity Plan: * Patient at present appears encephalopathic. Patient's examination was very limited because of her mental status. Cannot rule out underlying CVA. * Suggest MRI of the brain and cervical spine to rule out CVA/spinal stenosis. * We will check B12, folate, MMA. Her TSH is normal 0.924 * Treatment of UTI and anemia as per IM. * We'll obtain collateral history from patient's family as well. * Hemoglobin A1c 6.9, lipid panel with cholesterol 126, LDL 56, HDL 51 triglycerides 90. * Avoid opiates, narcotics, sedatives. * Thank you for the consult. Time with Patient: Greater than 30
[2021-08-04] MEDS: SENNOSIDES-DOCUSATE SODIUM 1 EACH TAB PO SCH (21:32)
[2021-08-04] MEDS: INSULIN DETEMIR (LEVEMIR) 100 UNIT/ML SYR SQ SCH (21:34)
[2021-08-05] MEDS: KETOROLAC 15 MG/ML 1 ML VIAL IVP SCH ×3 (00:35→11:52)
[2021-08-05] MEDS: SODIUM CHLORIDE 0.9% 1,000 ML IV SCH ×3 (00:39→21:01)
[2021-08-05] MEDS: traMADol 50 MG TAB PO SCH ×4 (04:36→20:53)
[2021-08-05 06:57] LABS: Glucose,Whole Blood 132 mg/dL (70-110)
[2021-08-05] MEDS: INSULIN ASPART (NovoLOG) 100 UNIT/ML VIAL SQ SCH ×4 (08:48→21:01)
[2021-08-05] MEDS: ENOXAPARIN 30 MG/0.3 ML SYRINGE SQ SCH ×2 (09:11→21:00)
[2021-08-05] MEDS: FERROUS SULFATE 325 MG TAB PO SCH (09:11)
[2021-08-05] MEDS: SPIRONOLACTONE 25 MG TAB PO SCH (09:11)
[2021-08-05] MEDS: METOPROLOL TARTRATE 50 MG TAB PO SCH ×2 (09:11→21:01)
[2021-08-05] MEDS: ATORVASTATIN 40 MG TAB PO SCH (09:11)
[2021-08-05] MEDS: PANTOPRAZOLE 40 MG TABLET PO SCH (09:11)
[2021-08-05] MEDS ORDERED: bisacodyL 10 MG SUPP RECTAL STA (10:30)
--- NOTE | 2021-08-05 10:50 | P.PN ---
Subjective Progress Note Date: 08/05/21 Principal diagnosis: Status post left femur retrograde nailing This is an 80 year-old female post left femur ORIF with retrograde nail. This is post-op day 3. The patient was evaluated at the bedside today with her son present. The patient is lethargic but does respond to verbal stimuli. The patient sat on the side of the bed with physical therapy this morning and was able to stay sitting up on her own. She is currently receiving Toradol for pain. She has been evaluated by neurology and MRIs of the brain and neck have been ordered. The patient's son states she has not had a bowel movement since admission to the hospital, internal medicine ordered Miralax. Objective - Vital Signs Vital signs: Vital Signs Temp 99.1 F 08/05/21 04:30 Pulse 87 08/05/21 04:30 Resp 20 08/05/21 04:30 BP 179/85 08/05/21 04:30 Pulse Ox 97 08/05/21 04:30 FiO2 Intake & Output 08/04/21 08/05/21 08/05/21 18:59 06:59 18:59 Intake Total 950 Output Total 775 600 Balance 175 -600 Intake: Intake, IV Titration 950 Amount Sodium Chloride 0.9% 1, 900 000 ml @ 75 mls/hr IV . [id number] [facility] Rx#:[id number] cefTRIAXone 1 gm In 50 Sodium Chloride 0.9% 50 ml @ 100 mls/hr IVPB Q24HR [facility] Rx#:[id number] Output: Urine 775 600 Other: Voiding Method Indwelling Catheter Indwelling Catheter # Bowel Movements 0 - Exam The patient does not appear in acute distress. She is still lethargic but arouses to verbal and painful stimuli. Dressing is clean dry and intact. Incision appears fine with no erythema or active drainage. Calf is soft and nontender. Bilateral slings are in place. Sensation and circulatory status is intact to all extremities. - Labs CBC & Chem 7: 08/04/21 05:33 08/04/21 05:33 Labs: Abnormal Lab Results - Last 24 Hours (Table) 08/04/21 08/04/21 08/04/21 Range/Units 05:33 11:18 16:39 POC Glucose (mg/dL) 170 H 161 H (70-110) mg/dL Vitamin B12 1958.0 H (200.0-944.0) pg/mL 08/04/21 08/05/21 Range/Units 19:54 06:56 POC Glucose (mg/dL) 161 H 132 H (70-110) mg/dL Vitamin B12 (200.0-944.0) pg/mL Assessment and Plan (1) Fracture of neck of right humerus Current Visit: Yes Status: Acute Code(s): S42.211A - UNSP DISP FX OF SURGICAL NECK OF RIGHT HUMERUS, INIT SNOMED Code(s): 231618624 (2) Fracture of neck of left humerus Current Visit: Yes Status: Acute Code(s): S42.212A - UNSP DISP FX OF SURGICAL NECK OF LEFT HUMERUS, INIT SNOMED Code(s): 561968569 (3) Fall Current Visit: Yes Status: Acute Code(s): W19.XXXA - UNSPECIFIED FALL, INITIAL ENCOUNTER SNOMED Code(s): 9125231 (4) Left femoral shaft fracture Current Visit: Yes Status: Acute Code(s): S72.302A - UNSP FRACTURE OF SHAFT OF LEFT FEMUR, INIT FOR CLOS FX SNOMED Code(s): 86863023 Plan: The clinical findings were discussed with the patient's family. The case was discussed with Dr. Yoo. Continue Toradol. Avoid narcotics if able. She will continue PT and OT. Weightbearing as tolerated to the left lower extremity and non-weightbearing to the upper extremities. Orders for a swallow evaluation and MRIs of the brain and neck are placed. Once medically stable, she will be transferred to skilled rehab.
[2021-08-05 11:15] LABS: Glucose,Whole Blood 143 mg/dL (70-110)
--- NOTE | 2021-08-05 12:39 | P.PN ---
Subjective Progress Note Date: 08/05/21 Patient hasn't had a stool since prior to admission, appetite is poor. She does awaken to voice, follows commands, is appropriate in interview. Denies pain. Gen: awake, alert HEENT: normocephalic, atraumatic, good hearing acuity, moist mucous membranes Resp: good air exchange, breathing comfortably with no accessory muscle use CVS: good distal perfusion x 4, GI: soft, NTTP, ND : no SPT, no CVAT, horvath catheter is present MSK: no pitting edema, no clubbing Neuro: non-focal, moving all extremities Psych: cooperative, euthymic mood Assessment/plan: Patient is an 80-year-old female admitted for bilateral humerus fractures and left distal femoral fracture. Acute toxic encephalopathy - suspect hypoactive delirium - hold narcotic agents - start toradol - consult neurology -Pending MRI of the brain - CXR without PNA, but does show fluid overload, will decrease fluids resume aldactone Complicated urinary tract infection - on rocephin - follow urine culture is growing Klebsiella, resistant to ampicillin and cefaz titus -Ultrasound of the kidney/bladder Constipation - Sophia-Colace 2 tabs twice a day -MiraLAX daily -Bisacodyl suppository Poor by mouth intake -Nutrition consult -Speech therapy consult Elevated troponin with without signs of chest pain -Likely secondary to stress versus cardiac contusion from fall -Echocardiogram,normal -Cardio Diabetes mellitus type 2 - SSI - Follow BS - A1C 6.9 Parkinson's disease - sinemet Moderate pulm HTN on echo - outpatient follow-up Iron deficiency anemia with acute blood loss - s/p 1 unit pRBC - follow CBC - ferrous sulfate Thank you for allowing us to participate in the care of this pleasant patient. Do not hesitate to contact us with questions. Someone can be reached from the [facility] hospitalist group all hours of the day at [phone] or via [employer]. Objective - Vital Signs Vital signs: Vital Signs Temp 97.9 F 08/05/21 11:16 Pulse 75 08/05/21 11:16 Resp 18 08/05/21 11:16 BP 172/75 08/05/21 11:16 Pulse Ox 93 L 08/05/21 11:16 FiO2 Intake & Output 08/04/21 08/05/21 08/05/21 18:59 06:59 18:59 Intake Total 950 Output Total 775 600 Balance 175 -600 Intake: Intake, IV Titration 950 Amount Sodium Chloride 0.9% 1, 900 000 ml @ 75 mls/hr IV . [id number] [facility] Rx#:[id number] cefTRIAXone 1 gm In 50 Sodium Chloride 0.9% 50 ml @ 100 mls/hr IVPB Q24HR [facility] Rx#:[id number] Output: Urine 775 600 Other: Voiding Method Indwelling Catheter Indwelling Catheter Indwelling Catheter # Bowel Movements 0 - Labs CBC & Chem 7: 08/04/21 05:33 08/04/21 05:33 Labs: Abnormal Lab Results - Last 24 Hours (Table) 08/04/21 08/04/21 08/04/21 Range/Units 05:33 16:39 19:54 POC Glucose (mg/dL) 161 H 161 H (70-110) mg/dL Vitamin B12 1958.0 H (200.0-944.0) pg/mL 08/05/21 08/05/21 Range/Units 06:56 11:13 POC Glucose (mg/dL) 132 H 143 H (70-110) mg/dL Vitamin B12 (200.0-944.0) pg/mL
[2021-08-05] MEDS: CARBIDOPA-LEVODOPA 25-100 MG 1 EACH TAB PO SCH (13:05)
[2021-08-05] MEDS: polyethylene glycoL 3350 17 GM POWD.PACK PO SCH (13:05)
[2021-08-05] MEDS: SENNOSIDES-DOCUSATE SODIUM 1 EACH TAB PO SCH ×2 (13:05→21:01)
[2021-08-05 17:16] LABS: Glucose,Whole Blood 158 mg/dL (70-110)
[2021-08-05] MEDS: LINAGLIPTIN 5 MG TABLET PO SCH (17:32)
[2021-08-05] MEDS ORDERED: SODIUM CHLORIDE 0.9% 1,000 ML IV ONE (17:53)
[2021-08-05 20:12] LABS: Glucose,Whole Blood 152 mg/dL (70-110)
--- NOTE | 2021-08-05 20:14 | US ---
EXAMINATION TYPE: US kidneys/renal and bladder DATE OF EXAM: 08/05/2021 COMPARISON: US 05/2017 CLINICAL HISTORY: Urinary tract infection. UTI EXAM MEASUREMENTS: Right Kidney: 12.1 x 3.7 x 5.0 cm Left Kidney: 10.0 x 4.6 x 4.9 cm Right Kidney: No hydronephrosis or masses seen, CYST NOTED IN INFERIOR POLE RODGER. 4.5 x 3.8 x 4.8cm Left Kidney: No hydronephrosis or masses seen Bladder: NOT FULLY DISTENDED, PEREZ BULB NOTED IN BLADDER AREA Bilateral Jets seen: No IMPRESSION: There is right side renal simple cortical cyst. No evidence of solid renal mass or obstruction. Urina ry bladder empty during the exam. No adverse change compared to old exam.
[2021-08-05] MEDS: INSULIN DETEMIR (LEVEMIR) 100 UNIT/ML SYR SQ SCH (21:00)
[2021-08-06] MEDS: traMADol 50 MG TAB PO SCH (01:03)
[2021-08-06] MEDS: SODIUM CHLORIDE 0.9% 1,000 ML IV SCH ×2 (05:11→18:04)
[2021-08-06 06:28] LABS: Anisocytosis Slight; Basophils # (A) 0.1 k/uL (0-0.2); Basophils % (A) 1 %; Eosinophils # (A) 0.2 k/uL (0-0.7); Eosinophils % (A) 2 %; HCT 24.2 % (34.0-46.0); HGB 7.7 gm/dL (11.4-16.0); Hypochromasia Slight; Lymphocytes # (A) 1.1 k/uL (1.0-4.8); Lymphocytes % (A) 12 %; MCH 28.1 pg (25.0-35.0); MCHC 31.7 g/dL (31.0-37.0); MCV 88.5 fL (80.0-100.0); Mean Platelet Volume 7.9; Monocytes # (A) 0.6 k/uL (0-1.0); Monocytes % (A) 7 %; Neutrophils # (A) 6.8 k/uL (1.3-7.7); Neutrophils % (A) 76 %; Platelet Count 231 k/uL (150-450); RBC 2.73 m/uL (3.80-5.40); RDW 16.4 % (11.5-15.5); WBC 8.9 k/uL (3.8-10.6)
[2021-08-06 07:31] LABS: Glucose,Whole Blood 118 mg/dL (70-110)
[2021-08-06] MEDS: INSULIN ASPART (NovoLOG) 100 UNIT/ML VIAL SQ SCH ×4 (08:29→21:57)
[2021-08-06] MEDS: ATORVASTATIN 40 MG TAB PO SCH (10:00)
[2021-08-06] MEDS: FERROUS SULFATE 325 MG TAB PO SCH (10:00)
[2021-08-06] MEDS: PANTOPRAZOLE 40 MG TABLET PO SCH (10:00)
[2021-08-06] MEDS: SPIRONOLACTONE 25 MG TAB PO SCH (10:00)
[2021-08-06] MEDS: METOPROLOL TARTRATE 50 MG TAB PO SCH (10:00)
[2021-08-06] MEDS: ENOXAPARIN 30 MG/0.3 ML SYRINGE SQ SCH ×2 (10:01→19:59)
[2021-08-06] MEDS: polyethylene glycoL 3350 17 GM POWD.PACK PO SCH (10:02)
[2021-08-06] MEDS: SENNOSIDES-DOCUSATE SODIUM 1 EACH TAB PO SCH (10:02)
--- NOTE | 2021-08-06 10:59 | P.PN ---
Subjective Progress Note Date: 08/05/21 Patient was seen for a follow-up. Patient's daughter was present today. And the other daughter was on the face time as well. Patient apparently lives with Katie. Patient tripped while going to a restaurant and fell. She was supposed to use walker, but she does not use it often. Patient's daughter states she is "stubborn". Patient clinically not much change as compared to yesterday. Per daughter her eyes don't follow up. She is talking a little more but has to think and takes time. Objective - Vital Signs Vital signs: Vital Signs Temp 97.8 F 08/06/21 05:00 Pulse 87 08/06/21 05:00 Resp 24 08/06/21 05:00 BP 177/75 08/06/21 05:00 Pulse Ox 98 08/05/21 19:41 FiO2 Intake & Output 08/05/21 08/06/21 08/06/21 18:59 06:59 18:59 Intake Total 825 200 Output Total 325 650 Balance 500 -450 Intake: Intake, IV Titration 825 Amount Sodium Chloride 0.9% 1, 825 000 ml @ 100 mls/hr IV . Q10H [facility] Rx#:[id number] Oral 200 Output: Urine 325 650 Other: Voiding Method Indwelling Catheter Indwelling Catheter # Bowel Movements 1 1 - Exam Patient is alert and awake. Patient able to tell name of her daughter. Her speech is slow, and slightly slurred. Patient can name and repeat very well. Her pupils are equal, round and reacting. Patient's gaze is slightly limited on either side. Face appears symmetric. Her director of web marketing is only 3 bilaterally. She can wiggle her ankles. Reflexes are absent and plantar is possible up on the right. Exam very limited because of limited mobility. Even the right leg, which has no fracture, is limited in movement. - Labs CBC & Chem 7: 08/06/21 05:48 08/04/21 05:33 Labs: Abnormal Lab Results - Last 24 Hours (Table) 08/05/21 08/05/21 08/05/21 Range/Units 11:13 17:15 20:10 RBC (3.80-5.40) m/uL Hgb (11.4-16.0) gm/dL Hct (34.0-46.0) % RDW (11.5-15.5) % POC Glucose (mg/dL) 143 H 158 H 152 H (70-110) mg/dL 08/06/21 08/06/21 Range/Units 05:48 07:29 RBC 2.73 L (3.80-5.40) m/uL Hgb 7.7 L (11.4-16.0) gm/dL Hct 24.2 L (34.0-46.0) % RDW 16.4 H (11.5-15.5) % POC Glucose (mg/dL) 118 H (70-110) mg/dL Assessment and Plan Assessment: * Altered mental status, likely due to toxic metabolic encephalopathy. Reasons multifactorial including acute pain, and being on pain medication * Klebsiella oxytoca UTI, on Rocephin. * Anemia * Status post fall, with bilateral shoulder and left hip fracture. * Generalized weakness, rule out CVA, rule out spinal stenosis. * Obesity Plan: * Patient at present appears encephalopathic. Patient's examination was very limited because of her mental status. Cannot rule out underlying CVA. * Await MRI of the brain and cervical spine to rule out CVA/spinal stenosis. Discussed with patient's daughter, who agreed with proceeding with MRI. * 2-D echo revealed normal left-ventricular size and systolic function without any segmental wall motion abnormalities. EF is 55-60%. Mild concentric LVH. Normal left atrial size. * B12 1958, folate 18, MMA pending. Her TSH is normal 0.924 * Treatment of UTI and anemia as per IM. * Hemoglobin A1c 6.9, lipid panel with cholesterol 126, LDL 56, HDL 51 triglycerides 90. * Avoid opiates, narcotics, sedatives. * We will follow.
[2021-08-06 11:51] LABS: Glucose,Whole Blood 129 mg/dL (70-110)
--- NOTE | 2021-08-06 11:57 | US ---
EXAMINATION TYPE: US carotid duplex BILAT DATE OF EXAM: 08/06/2021 COMPARISON: NONE CLINICAL HISTORY: Acute CVA. fall and possible CVA, bilat shoulder and femur fx EXAM MEASUREMENTS: RIGHT: Peak Systolic Velocity (PSV) cm/sec ----- Right CCA: 90.6 ----- Right ICA: 69.6 ----- Right ECA: 138 ICA/CCA ratio: 0.9 RIGHT: End Diastole cm/sec ----- Right CCA: 17.7 ----- Right ICA: 14.3 ----- Right ECA: 7.8 LEFT: Peak Systolic Velocity (PSV) cm/sec ----- Left CCA: 92.6 ----- Left ICA: 95.6 ----- Left ECA: 105 ICA/CCA ratio: 1.0 LEFT: End Diastole cm/sec ----- Left CCA: 16.4 ----- Left ICA: 18.4 ----- Left ECA: 7.4 VERTEBRALS (direction of flow): Right Vertebral: unable to visualize, patient had head tilted to the right and did not move Left Vertebral: Antegrade Rhythm: Normal Mild homogeneous plaque with no stenosis seen IMPRESSION: 1. No significant flow-limiting stenosis. 2. Nonvisualization of the right vertebral artery origin patient ability to cooperate was limited for this portion. Criteria for Assigning % of Stenosis / Diameter reduction (Estimation based on the indirect measurements of the internal carotid artery velocities (ICA PSV). 1. Normal (no stenosis)=ICA PSV < 125 cm/s: ratio < 2.0: ICA EDV<40 cm/s. 2. Less than 50% stenosis=ICA PSV < 125 cm/s: ratio < 2.0: ICA EDV<40 cm/s. 3. 50 to 69% stenosis=ICA PSV of 125 to 230 cm/s: ration 2.0 ? 4.0: ICA EDV 40-100 cm/s. 4. Greater than 70% stenosis to near occlusion= ICA PSV > 230 cm/s: ratio > 4.0: ICA EDV > 100 cm/s. 5. Near occlusion= ICA PSV velocities may be low or undetectable: variable ratio and ICA EDV. 6. Total occlusion=unable to detect flow.
--- NOTE | 2021-08-06 11:58 | P.PN ---
Subjective Progress Note Date: 08/06/21 Principal diagnosis: Status post left femur retrograde nailing This is an 80 year-old female post left femur ORIF with retrograde nail. This is post-op day 4. The patient was evaluated at the bedside today with her son present. The patient is lethargic but is improving. The patient sat on the side of the bed with physical therapy this morning and was able to stay sitting up on her own. She is currently receiving Tylenol for pain. She has been evaluated by neurology and MRIs of the brain and neck have been ordered and completed this morning. She failed her swallow eval yesterday. Objective - Vital Signs Vital signs: Vital Signs Temp 97.8 F 08/06/21 05:00 Pulse 87 08/06/21 05:00 Resp 24 08/06/21 05:00 BP 177/75 08/06/21 05:00 Pulse Ox 98 08/05/21 19:41 FiO2 Intake & Output 08/05/21 08/06/21 08/06/21 18:59 06:59 18:59 Intake Total 825 200 Output Total 325 650 Balance 500 -450 Intake: Intake, IV Titration 825 Amount Sodium Chloride 0.9% 1, 825 000 ml @ 100 mls/hr IV . Q10H [facility] Rx#:[id number] Oral 200 Output: Urine 325 650 Other: Voiding Method Indwelling Catheter Indwelling Catheter Indwelling Catheter # Bowel Movements 1 1 - Exam The patient does not appear in acute distress. She is still lethargic but is answering questions appropriately. Dressing is clean dry and intact. Incision appears fine with no erythema or active drainage. Calf is soft and nontender. Bilateral slings are in place. Sensation and circulatory status is intact to all extremities. - Labs CBC & Chem 7: 08/06/21 05:48 08/04/21 05:33 Labs: Abnormal Lab Results - Last 24 Hours (Table) 08/05/21 08/05/21 08/06/21 Range/Units 17:15 20:10 05:48 RBC 2.73 L (3.80-5.40) m/uL Hgb 7.7 L (11.4-16.0) gm/dL Hct 24.2 L (34.0-46.0) % RDW 16.4 H (11.5-15.5) % POC Glucose (mg/dL) 158 H 152 H (70-110) mg/dL 08/06/21 08/06/21 Range/Units 07:29 11:49 RBC (3.80-5.40) m/uL Hgb (11.4-16.0) gm/dL Hct (34.0-46.0) % RDW (11.5-15.5) % POC Glucose (mg/dL) 118 H 129 H (70-110) mg/dL Assessment and Plan (1) Fracture of neck of right humerus Current Visit: Yes Status: Acute Code(s): S42.211A - UNSP DISP FX OF SURGIC AL NECK OF RIGHT HUMERUS, INIT SNOMED Code(s): 248830692 (2) Fracture of neck of left humerus Current Visit: Yes Status: Acute Code(s): S42.212A - UNSP DISP FX OF SURGICAL NECK OF LEFT HUMERUS, INIT SNOMED Code(s): 741149630 (3) Fall Current Visit: Yes Status: Acute Code(s): W19.XXXA - UNSPECIFIED FALL, INITIAL ENCOUNTER SNOMED Code(s): 5989361 (4) Left femoral shaft fracture Current Visit: Yes Status: Acute Code(s): S72.302A - UNSP FRACTURE OF SHAFT OF LEFT FEMUR, INIT FOR CLOS FX SNOMED Code(s): 35926351 Plan: The clinical findings were discussed with the patient's family. The case was discussed with Dr. Yoo. Continue Tylenol. Avoid narcotics if able. She will continue PT and OT. Weightbearing as tolerated to the left lower extremity and non-weightbearing to the upper extremities. Await MRIs of the brain and neck results. Once medically stable, she will be transferred to skilled rehab.
[2021-08-06] MEDS: CARBIDOPA-LEVODOPA 25-100 MG 1 EACH TAB PO SCH (14:56)
[2021-08-06 16:56] LABS: Glucose,Whole Blood 130 mg/dL (70-110)
[2021-08-06] MEDS: LINAGLIPTIN 5 MG TABLET PO SCH (17:27)
--- NOTE | 2021-08-06 17:41 | P.PN ---
Subjective Progress Note Date: 08/06/21 (delayed charting seen at 1210) Principal diagnosis: fall Patient is an 80-year-old female with type II DM, Parkinson's, and hypertension who presents to the emergency room after a fall. Shoulder CTs in the emergency room revealed bilateral shoulder fractures as well as a left distal femur fracture. Chest x-ray was unremarkable. Laboratory evaluation was remarkable for WBC count of 19.2, troponin 0.155, magnesium 1.3, glucose of 218. Her troponin was elevated. We were asked to consult for cardiac risk stratification. Her echo was done which showed a preserved ejection fraction but moderate pulm HTN. She underwent IM nailing on 08/02/21. She developed some altered mental status post surgery. Patient seen and examined at bedside. She appears less lethargic, and last evaluation. She is awake and talking to me. She is asking for milk and something to eat. She states her pain is currently adequately controlled. Family at bedside updated extensively. All questions answered. General: nontoxic, no distress, appears at stated age Derm: warm, dry, bilateral arm slings Head: atraumatic, normocephalic, symmetric Eyes: EOMI, no lid lag, anicteric sclera Mouth: no lip lesion, mucus membranes dry Cardiovascular: S1S2 reg, no murmur, positive posterior tibial pulse bilateral, Lungs: Coarse breath sounds bilateral, no rhonchi, no rales , no accessory mus nomi use Abdominal: soft, nontender to palpation, no guarding, no appreciable organomegaly Neuro: Answering questions appropriately, pupils equal round reactive to light Psych: Somnolent, however when awake she is alert and oriented 3, she appears to have an appropriate affect. Assessment/plan: Patient is an 80-year-old female admitted for bilateral humerus fractures and left distal femoral fracture. Acute toxic encephalopathy - suspect hypoactive delirium - hold narcotic agents -non opiate pain medications - neurology recs: MRI brain is pending - CXR without PNA Dysphagia - strict NPO per speech, failed bedside swallow. Constipation, improved - bowel regiment Klebsiella UTI, POA - on rocephin - follow urine culture Elevated troponin with without signs of chest pain -Likely secondary to stress versus cardiac contusion from fall -Echocardiogram,normal -Cardio Diabetes mellitus type 2 - SSI - Follow BS - A1C 6.9 Parkinson's disease - sinemet Moderate pulm HTN on echo - outpatient follow-up Iron deficiency anemia with acute blood loss - s/p 1 unit pRBC - follow CBC - ferrous sulfate Leukocytosis, resolved -Likely stress-induced TIKI, resolved Hyperkalemia, resolved Hypomagnesemia, resolved Active Medications Generic Name Dose Route Start Last Admin Trade Name Freq PRN Reason Stop Dose Admin Acetaminophen 650 mg 08/03/21 15:45 08/04/21 19:28 Acetaminophen Tab 325 Mg Tab PO 650 mg Q6HR PRN Administration Fever and/ or Pain Atorvastatin Calcium 40 mg 08/01/21 09:00 08/06/21 10:00 Atorvastatin 40 Mg Tab PO 40 mg DAILY [facility] Administration Carbidopa/Levodopa 1 each 08/01/21 14:00 08/06/21 14:56 Carbidopa-Levodopa 25-100 Mg 1 Each Tab PO 1 each DAILY@1400 [facility] Administration Enoxaparin Sodium 30 mg 08/03/21 09:00 08/06/21 10:01 Enoxaparin 30 Mg/0.3 Ml Syringe SQ 30 mg Q12HR [facility] Administration Ferrous Sulfate 325 mg 08/03/21 12:30 08/06/21 10:00 Ferrous Sulfate 325 Mg Tab PO 325 mg W/LUNCH [facility] Administration Hydromorphone HCl 1 mg 07/31/21 21:19 08/02/21 02:45 Hydromorphone 1 Mg/Ml 1 Ml Syringe IVP 1 mg Q3HR PRN Administration Moderate Pain Hydromorphone HCl 0.125 mg 08/02/21 11:07 Hydromorphone 0.5 Mg/0.5 Ml Syringe IVP Q3HR PRN Pain Scale 1 to 3 Hydromorphone HCl 0.25 mg 08/02/21 11:07 Hydromorphone 0.5 Mg/0.5 Ml Syringe IVP Q3HR PRN Pain Scale 4 to 6 Hydromorphone HCl 0.5 mg 08/02/21 11:07 08/03/21 03:43 Hydromorphone 0.5 Mg/0.5 Ml Syringe IVP 0.5 mg Q3HR PRN Administration Pain Scale 7 to 10 Ceftriaxone Sodium 1 gm/ 50 mls @ 100 mls/hr 08/03/21 16:00 08/06/21 10:01 Sodium Chloride IVPB 100 mls/hr Q24HR [facility] Administration Protocol Sodium Chloride 1,000 mls @ 100 mls/hr 08/04/21 10:00 08/06/21 05:11 Saline 0.9% IV 100 mls/hr .Q10H [facility] Administration Insulin Aspart 0 unit 08/01/21 07:30 08/06/21 17:27 Insulin Aspart (Novolog) 100 Unit/Ml Vial SQ Not Given ACHS [facility] Protocol Insulin Detemir 20 unit 08/06/21 21:00 Insulin Detemir (Levemir) 100 Unit/Ml Syr SQ HS [facility] Linagliptin 5 mg 08/02/21 18:30 08/06/21 17:27 Linagliptin 5 Mg Tablet PO Not Given PC-SUPPER [facility] Metoprolol Tartrate 50 mg 08/01/21 09:00 08/06/21 10:00 Metoprolol Tartrate 50 Mg Tab PO 50 mg BID [facility] Administration Naloxone HCl 0.2 mg 07/31/21 21:19 Naloxone 0.4 Mg/Ml 1 Ml Vial IV Q2M PRN Opioid Reversal Ondansetron HCl 4 mg 07/31/21 21:19 08/01/21 02:20 Ondansetron 4 Mg/2 Ml Vial IVP 4 mg Q8HR PRN Administration Nausea And Vomiting Pantoprazole Sodium 40 mg 08/02/21 09:00 08/06/21 10:00 Pantoprazole 40 Mg Tablet PO 40 mg AC-[id number] [facility] Administration Polyethylene Glycol 17 gm 08/05/21 10:30 08/06/21 10:02 Polyethylene Glycol 3350 17 Gm Powd.Pack PO Not Given DAILY [facility] Senna/Docusate Sodium 2 each 08/05/21 10:30 08/06/21 10:02 Sennosides-Docusate Sodium 1 Each Tab PO Not Given BID [facility] Spironolactone 25 mg 08/04/21 12:15 08/06/21 10:00 Spironolactone 25 Mg Tab PO 25 mg DAILY [facility] Administration Objective - Vital Signs Vital signs: Vital Signs Temp 97.7 F 08/06/21 11:55 Pulse 89 08/06/21 11:55 Resp 18 08/06/21 11:55 BP 169/96 08/06/21 11:55 Pulse Ox 94 L 08/06/21 11:55 FiO2 Intake & Output 08/05/21 08/06/21 08/06/21 18:59 06:59 18:59 Intake Total 825 200 Output Total 325 650 Balance 500 -450 Weight 90.718 kg Intake: Intake, IV Titration 825 Amount Sodium Chloride 0.9% 1, 825 000 ml @ 100 mls/hr IV . Q10H [facility] Rx#:[id number] Oral 200 Output: Urine 325 650 Other: Voiding Method Indwelling Catheter Indwelling Catheter Indwelling Catheter # Bowel Movements 1 1 - Labs CBC & Chem 7: 08/06/21 05:48 08/04/21 05:33 Labs: Abnormal Lab Results - Last 24 Hours (Table) 08/05/21 08/06/21 08/06/21 Range/Units 20:10 05:48 07:29 RBC 2.73 L (3.80-5.40) m/uL Hgb 7.7 L (11.4-16.0) gm/dL Hct 24.2 L (34.0-46.0) % RDW 16.4 H (11.5-15.5) % POC Glucose (mg/dL) 152 H 118 H (70-110) mg/dL 08/06/21 08/06/21 Range/Units 11:49 16:55 RBC (3.80-5.40) m/uL Hgb (11.4-16.0) gm/dL Hct (34.0-46.0) % RDW (11.5-15.5) % POC Glucose (mg/dL) 129 H 130 H (70-110) mg/dL
[2021-08-06] MEDS ORDERED: ASPIRIN 300 MG SUPP RECTAL STA (18:35)
[2021-08-06] MEDS ORDERED: ASPIRIN 325 MG TAB PO SCH (18:45)
[2021-08-06] MEDS ORDERED: LABETALOL 5 MG/ML VIAL MDV IVP PRN (18:47)
[2021-08-06] MEDS: PANTOPRAZOLE 40 MG/10 ML VIAL IVP SCH (19:59)
[2021-08-06 20:14] LABS: Glucose,Whole Blood 144 mg/dL (70-110)
[2021-08-06] MEDS: INSULIN DETEMIR (LEVEMIR) 100 UNIT/ML SYR SQ SCH (21:27)
--- NOTE | 2021-08-06 22:10 | MR ---
EXAMINATION TYPE: MR brain/cspine wo DATE OF EXAM: 08/06/2021 COMPARISON: CT brain 3 days ago. HISTORY: Weakness, fall, possible CVA vs spinal stenosis TECHNIQUE: Multiplanar, multisequence imaging of the brain and brainstem and the cervical spine are a ll performed without IV contrast. FINDINGS: Brain: Diffusion weighted images large wedge-shaped areas increased signal on diffusion weighted images with areas of diminished signal on ADC mapping involving the right frontal lobe and right parietal lobe i n the anterior and posterior watershed region showing T1 hypointensity and T2 hyperintensity with mica dence of blood product on SWI imaging greatest in the right parietal lobe. There are smaller punctate round focal areas bilaterally with evidence of blood product on SWI imaging. Background mild to moderate ventricular and sulcal prominence. Degree of atrophy greatest over bilate ral frontal lobes. Background focal and confluent areas of T2 hyperintensity throughout the white mat ter bilaterally. Midline structures demonstrate normal morphology. The craniocervical junction appears within normal limits. Mild to moderate callosal thickening involving ethmoid sinuses bilaterally. Globes are intact bilaterally. IMPRESSION: 1. Wedge-shaped acute infarct right frontal lobe anterior watershed region and larger hemorrhagic inf arct right parietal lobe posterior watershed region with additional bilateral multifocal hemorrhagic acute lacunar infarcts noted. 2. Background mild to moderate diffuse cerebral atrophy and moderate to severe chronic small vessel i schemic change. MRI CERVICAL SPINE: FINDINGS: Coronal images show slight levoconvex scoliotic curvature centered in the upper cervical sp ine. Sagittal images of the cervical spine show the craniocervical junction to appear within normal l imits. The cervical and upper thoracic spinal cord is normal in caliber and signal. There is slight grade 1 retrolisthesis C5 on C6 and grade 1 anterolisthesis C7 on T1. The vertebral body and intrave rtebral disk heights are normal in the cervical spine. Slight grade 1 anterolisthesis T1 and T2 with mild to moderate disc space narrowing at this level. The round lesion of low T1 and increased T2 sign al posterior inferior C5 vertebra favors benign etiology but should be correlated with plain films. Axial images show C2-C3 level to appear within normal limits. Axial images at C3-C4 level show uncovertebral facet degenerative changes bilaterally causing mild bi lateral neural foraminal narrowing. Axial images at C4-C5 level show uncovertebral facet degenerative changes bilaterally causing mild-to -moderate left-sided neural foraminal narrowing. Axial images at C5-C6 level broad-based left paracentral disc protrusion effacing the anterior thecal sac and causing mild right and moderate left-sided neural foraminal narrowing. Axial images at C6-C7 level shows central disc protrusion mildly effacing the anterior thecal sac and causing mild to moderate right-sided neural foraminal narrowing. Axial images at C7-T1 level shows spondylolisthesis otherwise appear within normal limits. IMPRESSION: Multilevel spondylolisthesis and degenerative changes of the cervical spine as detailed a mikhail.
--- NOTE | 2021-08-06 22:15 | US ---
EXAMINATION TYPE: US venous doppler duplex LE DATE OF EXAM: 08/06/2021 9:56 PM COMPARISON: NONE CLINICAL HISTORY: CVA. Patient has bilateral shoulder fractures and left femoral fracture SIDE PERFORMED: Bilateral TECHNIQUE: The lower extremity deep venous system is examined utilizing real time linear array sonog latoya with graded compression, doppler sonography and color-flow sonography. VESSELS IMAGED: Common Femoral Vein Deep Femoral Vein Greater Saphenous Vein * Femoral Vein Popliteal Vein Small Saphenous Vein * Proximal Calf Veins (* superficial vessels) Right Leg: Very limited exam; there is no evidence of DVT Left Leg: Very limited exam; there is no evidence of DVT Difficult exam due to patient body habitus and immobility; patient has left femoral fracture and bila teral shoulder fractures. Grayscale, color doppler, spectral doppler imaging performed of the deep veins of the bilateral lower extremities. IMPRESSION: Markedly suboptimal study without convincing evidence for acute DVT in either lower extr emity.
--- NOTE | 2021-08-07 01:25 | CT ---
EXAM: CT Head Without Intravenous Contrast CLINICAL HISTORY: ITS.REASON CT Reason: hemorrhagic stroke TECHNIQUE: Axial computed tomography images of the head/brain without intravenous contrast. CTDI is 49.2 mGy and DLP is 1188.4 mGy-cm. This CT exam was performed using one or more of the following dose reduction techniques: automated exposure control, adjustment of the mA and/or kV according to patient size, and/or use of iterative reconstruction technique. COMPARISON: CT 08/03/2021 and MRI 08/06/2021 FINDINGS: Brain: Evolving right frontal and parietal lobe infarcts with new low- density appearance compared to the prior head CT. Corresponds to abnormalities seen on the MRI. Blood products seen on the MRI not apparent on this study. No hyperdense blood products visualized. Mild regional mass-effect. No midline shift. Chronic changes of volume loss and small vessel disease. Ventricles: Unremarkable. No ventriculomegaly. Bones/joints: Unremarkable. No acute fracture. Soft tissues: Unremarkable. Sinuses: Unremarkable as visualized. No acute sinusitis. Mastoid air cells: Unremarkable as visualized. No mastoid effusion. IMPRESSION: Evolving right frontal and parietal lobe infarcts. Blood products seen on the MRI not apparent on this study. <MYCVCSECTION> Communications: 08/07/21 02:15 Verify Receipt with Nurse Verified receipt with [facility] Dickerson for Dr. Humphreys on 08/07 02:15 (-04:00)
[2021-08-07 06:13] LABS: Glucose,Whole Blood 143 mg/dL (70-110)
[2021-08-07] MEDS: INSULIN ASPART (NovoLOG) 100 UNIT/ML VIAL SQ SCH ×4 (06:17→20:49)
[2021-08-07 08:07] LABS: ALT 26 U/L (4-34); AST 51 U/L (14-36); African American GFR (CKD) 73 (>60 ml/min/1.73 sqM); Albumin 2.8 g/dL (3.5-5.0); Alkaline Phosphatase 125 U/L (38-126); Anion Gap 11 mmol/L; Blood Urea Nitrogen 26 mg/dL (7-17); Calcium 8.7 mg/dL (8.4-10.2); Carbon Dioxide 16 mmol/L (22-30); Chloride 113 mmol/L (98-107); Glucose 144 mg/dL (74-99); Non-African American GFR(CKD) 63 (>60 ml/min/1.73 sqM); Phosphorus 3.5 mg/dL (2.5-4.5); Potassium 4.4 mmol/L (3.5-5.1); Sodium 140 mmol/L (137-145); Total Bilirubin 1.4 mg/dL (0.2-1.3); Total Protein 5.7 g/dL (6.3-8.2)
[2021-08-07 08:10] LABS: Anisocytosis Slight; HCT 28.5 % (34.0-46.0); Hypochromasia Moderate; MCH 28.5 pg (25.0-35.0); MCHC 31.5 g/dL (31.0-37.0); MCV 90.4 fL (80.0-100.0); Mean Platelet Volume 7.7; Platelet Count 241 k/uL (150-450); RBC 3.15 m/uL (3.80-5.40); RDW 16.6 % (11.5-15.5); WBC 9.7 k/uL (3.8-10.6)
[2021-08-07] MEDS: ATORVASTATIN 40 MG TAB PO SCH (08:29)
[2021-08-07] MEDS ORDERED: ASPIRIN 300 MG SUPP RECTAL SCH ×2 (09:00)
--- NOTE | 2021-08-07 10:09 | P.PN ---
Subjective Progress Note Date: 08/06/21 Patient was seen for a follow-up. Patient's daughter was present today. Patient's MRI confirm CVA. Patient is being transferred to [address] [place], [place] [address]etry bed. Patient clinically unchanged. Denies headache. Patient apparently lives with Katie. Patient tripped while going to a restaurant and fell. She was supposed to use walker, but she does not use it often. Patient's daughter states she is "stubborn". Patient clinically not much change as compared to yesterday. Per daughter her eyes don't follow up. She is talking a little more but has to think and takes time. Objective - Vital Signs Vital signs: Vital Signs Temp 97.7 F 08/06/21 11:55 Pulse 89 08/06/21 11:55 Resp 18 08/06/21 11:55 BP 169/96 08/06/21 11:55 Pulse Ox 94 L 08/06/21 11:55 FiO2 Intake & Output 08/06/21 08/06/21 08/07/21 06:59 18:59 06:59 Intake Total 200 1200 Output Total 650 1300 Balance -450 -100 Weight 90.718 kg Intake: Intake, IV Titration 1200 Amount Sodium Chloride 0.9% 1, 1200 000 ml @ 999 mls/hr IV . Q1H1M ONE Rx#:[id number] Oral 200 Output: Urine 650 1300 Other: Voiding Method Indwelling Catheter Indwelling Catheter # Bowel Movements 1 1 - Exam Patient is alert and awake, slow mentation. Patient has mildly slow and slurred speech. Patient can name and repeat very well. Her pupils are equal, round and reacting. Face appears symmetric. Her desk clerk is only 3+ bilaterally, left slightly weaker. Approximately not checked because of fractures. She can wiggle her ankles. Reflexes are absent and plantar is possible up on the right. Exam very limited because of limited mobility. Even the right leg, which has no fracture, is limited in movement. - Labs CBC & Chem 7: 08/07/21 07:35 08/07/21 07:35 Labs: Abnormal Lab Results - Last 24 Hours (Table) 08/06/21 08/06/21 08/06/21 Range/Units 05:48 07:29 11:49 RBC 2.73 L (3.80-5.40) m/uL Hgb 7.7 L (11.4-16.0) gm/dL Hct 24.2 L (34.0-46.0) % RDW 16.4 H (11.5-15.5) % POC Glucose (mg/dL) 118 H 129 H (70-110) mg/dL 08/06/21 08/06/21 Range/Units 16:55 20:12 RBC (3.80-5.40) m/uL Hgb (11.4-16.0) gm/dL Hct (34.0-46.0) % RDW (11.5-15.5) % POC Glucose (mg/dL) 130 H 144 H (70-110) mg/dL Assessment and Plan Assessment: * Acute ischemic stroke bilateral, right hemispheric region >> left hemispheric region * Altered mental status, likely due to toxic metabolic encephalopathy and CVA. Reasons multifactorial including acute pain, and being on pain medication * Klebsiella oxytoca UTI, on Rocephin. * Anemia * Status post fall, with bilateral shoulder and left hip fracture. * Obesity Plan: * Patient has acute ischemic stroke, which appears embolic in nature. Rule out cardiac source. Cardiology is already in board. We will reconsult cardiology for possible CONSTANTINO rule out any embolic source. Official MRI report still pending at the time of this dictation. MRI of the cervical spine on my review showed no definitive significant spinal stenosis. * Patient will be started on aspirin 325 mg daily. If not able to take by mouth, then we will need aspirin 300 mg rectally. * Stat carotid Doppler was performed, which revealed no significant flow limiting stenosis. Nonvisualization of the right vertebral artery origin probably due to patient's noncooperation. * 2-D echo revealed normal left-ventricular size and systolic function without any segmental wall motion abnormalities. EF is 55-60%. Mild concentric LVH. Normal left atrial size. * Doppler ultrasound of the lower extremities rule out DVT. * B12 1958, folate 18, MMA pending. Her TSH is normal 0.924 * Treatment of UTI and anemia as per IM. * Hemoglobin A1c 6.9, lipid panel with cholesterol 126, LDL 56, HDL 51 triglycerides 90. * Avoid opiates, narcotics, sedatives. * Patient being transferred to telemetry bed in 3 S. Addendum: 10:35 PM Received call from the nurse that the official MRI report showed hemorrhagic infarcts. MRI brain reported: Wedge-shaped acute infarct right frontal lobe anterior watershed region and larger hemorrhagic infarct right parietal lobe posterior watershed region with additional bilateral multifocal hemorrhagic acute lacunar infarcts noted. Background mild to moderate diffuse cerebral atrophy and moderate to severe chronic small vessel ischemic change. I personally reviewed MRI, I agree with the findings. No significant hemorrhage however noticed. MRI of the cervical spine revealed multilevel spondylolisthesis and degenerative changes of the cervical spine. There is slight grade 1 retrolisthesis C5 on C6, grade 1 anterolisthesis C7 on T1 and slight grade 1 anterolisthesis T1 and T2. No significant central spinal stenosis. The cervical and upper thoracic spinal cord is normal in caliber and signal. I personally reviewed MRI of the cervical spine and agree with the findings. Stat CT head was performed to evaluate for any hemorrhagic conversion. Revealed evolving right frontal and parietal lobe infarcts. Blood products seen on the MRI not apparent on this study. I personally reviewed CT head and agree with the findings. Patient will be continued on aspirin 300 mg rectally. Doppler ultrasound of the bilateral lower extremity was very limited exam but no convincing evidence of DVT on either side. Continue Lovenox for DVT prophylaxis. I spent 30 minutes in total including discussing case with the nurses, primary physician Dr. Villalobos, reviewing CT head, MRI brain and coordinating care. Time with Patient: Greater than 30
[2021-08-07] MEDS: PANTOPRAZOLE 40 MG/10 ML VIAL IVP SCH (10:28)
--- NOTE | 2021-08-07 11:17 | P.GSCN ---
History of Present Illness Consult date: 08/07/21 History of present illness: CHIEF COMPLAINT: Fall with bilateral shoulder fracture and left distal femur fracture HISTORY OF PRESENT ILLNESS: This is a 80-year-old female who presented to the hospital after a fall with evidence of bilateral shoulder fracture and left d istal femur fracture. Patient had altered mental status was seen by neurology. She's found to have evidence of a new stroke. She is failed her swallow evaluation. She is currently nothing by mouth. And surgical service has been consulted for dysphagia due to her stroke and in need of a PEG tube placement. Family and patient do not want PEG tube at this time. They are requesting Dobbhoff placement. PAST MEDICAL HISTORY: Diabetes, hypertension, Parkinson's PAST SURGICAL HISTORY: Cholecystectomy, Hysterectomy, Tubal Ligation MEDICATIONS: See list. ALLERGIES: See list. SOCIAL HISTORY: No illicit drug use. REVIEW OF SYSTEMS: CONSTITUTIONAL: Denies fever or chills. HEENT: Denies blurred vision, vision changes, or eye pain. Denies hemoptysis CARDIOVASCULAR: Denies chest pain or pressure. RESPIRATORY: No shortness of breath. GASTROINTESTINAL: See HPI for pertinent findings HEMATOLOGIC: Denies bleeding disorders. GENITOURINARY: Denies any blood in urine or increased urinary frequency. SKIN: Denies pruitis. Denies rash. PHYSICAL EXAM: VITAL SIGNS: Reviewed GENERAL: Well-developed in no acute distress. HEENT: No sclera icterus. Extraocular movements grossly intact. Moist buccal mucosa. Head is atraumatic, normocephalic. No nasal drainage. ABDOMEN: Soft. Nondistended. Nontender NEUROLOGIC: Alert and oriented. Cranial nerves II through XII grossly intact. LABORATORY DATA: WBC is 9.7 hgb 9.0 platelets 241 Sodium 140 potassium 4.4 creatinine 0.87 Magnesium 2 Albumin 2.8 IMAGING: Computed tomography scan of brain evolving right frontal and parietal lobe infarcts. Blood products seen on MRI are not apparent on this study. ASSESSMENT: 1. Severe protein calorie malnutrition 2. Stroke with dysphagia 3. Failed swallowing eval 4. Falls with fracture to bilateral shoulders and left distal femur fracture PLAN: -Patient and family are declining PEG tube placement at this time. They are requesting Dobbhoff placement. -Continue supportive care -Further recommendations forthcoming per surgeon Physician Dental Treatment Coordinator note has been reviewed by physician. Signing provider agrees with the documented findings, assessment, and plan of care. Past Medical History Past Medical History: Diabetes Mellitus, Hypertension Additional Past Medical History / Comment(s): Parkinson's History of Any Multi-Drug Resistant Organisms: None Reported Past Surgical History: Cholecystectomy, Hysterectomy, Tubal Ligation Additional Past Surgical History / Comment(s): Cataract surgery Past Anesthesia/Blood Transfusion Reactions: No Reported Reaction Past Psychological History: No Psychological Hx Reported Smoking Status: Never smoker Past Alcohol Use History: None Reported Past Drug Use History: None Reported - Past Family History Mother Family Medical History: Hyperlipidemia Medications and Allergies Home Medications Medication Instructions Recorded Confirmed Type Ascorbic Acid [Vitamin C] 500 mg PO DAILY 04/17/20 07/31/21 History Calcium Carbonate [Calcium] 600 mg PO PC-SUPPER 04/17/20 07/31/21 History Carbidopa-Levodopa 25-100 mg 1 tab PO DAILY@1400 04/17/20 07/31/21 History [Sinemet 25-100] Cholecalciferol [Vitamin D3 (25 25 mcg PO PC-SUPPER 04/17/20 07/31/21 History Mcg = 1000 Iu)] Glimepiride [Amaryl] 4 mg PO W/BRKFST 04/17/20 07/31/21 History Insulin Degludec [Tresiba 24 - 30 units SQ HS 04/17/20 07/31/21 History Flextouch U-100] Losartan Potassium 100 mg PO AC-BRKFST 04/17/20 07/31/21 History Omeprazole 20 mg PO DAILY 04/17/20 07/31/21 History Vitamin B Complex 1 cap PO DAILY 04/17/20 07/31/21 History metFORMIN HCL [Glucophage] 500 mg PO PC-BID 04/17/20 07/31/21 History sitaGLIPtin [Januvia] 50 mg PO PC-SUPPER 04/17/20 07/31/21 History Ascorbic Acid [Vitamin C] 500 mg PO DAILY 07/31/21 07/31/21 History Fish Oil/Dha/Epa [Fish Oil 1,200 1 cap PO PC-SUPPER 07/31/21 07/31/21 History mg Fish Oil] Spironolactone [Aldactone] 25 mg PO DAILY 07/31/21 07/31/21 History Acetaminophen Tab [Tylenol] 650 mg PO Q6H PRN #30 tab 08/06/21 Rx Allergies Allergy/AdvReac Type Severity Reaction Status Date / Time tramadol Allergy Mild Rash/Hives Verified 08/03/21 15:48 acetaminophen [From Vicodin] Allergy Rash/Hives Verified 07/31/21 22:28 codeine Allergy Rash/Hives Verified 07/31/21 22:28 hydrocodone [From Vicodin] Allergy Rash/Hives Verified 07/31/21 22:28 iodine Allergy Anaphylaxis Verified 07/31/21 22:28 latex Allergy Rash/Hives Verified 07/31/21 22:28 pioglitazone [From Actos] Allergy Rash/Hives Verified 07/31/21 22:28 shellfish derived [Shellfish] Allergy Rash/Hives Verified 07/31/21 22:28 Sulfa (Sulfonamide Allergy Rash/Hives Verified 07/31/21 22:28 Antibiotics) Surgical - Exam Vital Signs Temp Pulse Resp BP Pulse Ox 97.9 F 60 18 147/73 95 07/31/21 18:52 07/31/21 18:52 07/31/21 18:52 07/31/21 18:52 07/31/21 18:52 Results - Labs 08/07/21 07:35 08/07/21 07:35 Abnormal Lab Results - Last 24 Hours (Table) 08/06/21 08/06/21 08/06/21 Range/Units 11:49 16:55 20:12 RBC (3.80-5.40) m/uL Hgb (11.4-16.0) gm/dL Hct (34.0-46.0) % RDW (11.5-15.5) % Chloride (98-107) mmol/L Carbon Dioxide (22-30) mmol/L BUN (7-17) mg/dL Glucose (74-99) mg/dL POC Glucose (mg/dL) 129 H 130 H 144 H (70-110) mg/dL Total Bilirubin (0.2-1.3) mg/dL AST (14-36) U/L Total Protein (6.3-8.2) g/dL Albumin (3.5-5.0) g/dL 08/07/21 08/07/21 08/07/21 Range/Units 06:11 07:35 07:35 RBC 3.15 L (3.80-5.40) m/uL Hgb 9.0 L (11.4-16.0) gm/dL Hct 28.5 L (34.0-46.0) % RDW 16.6 H (11.5-15.5) % Chloride 113 H (98-107) mmol/L Carbon Dioxide 16 L (22-30) mmol/L BUN 26 H (7-17) mg/dL Glucose 144 H (74-99) mg/dL POC Glucose (mg/dL) 143 H (70-110) mg/dL Total Bilirubin 1.4 H (0.2-1.3) mg/dL AST 51 H (14-36) U/L Total Protein 5.7 L (6.3-8.2) g/dL Albumin 2.8 L (3.5-5.0) g/dL Diabetes panel 08/07/21 Range/Units 07:35 Sodium 140 (137-145) mmol/L Potassium 4.4 (3.5-5.1) mmol/L Chloride 113 H (98-107) mmol/L Carbon Dioxide 16 L (22-30) mmol/L BUN 26 H (7-17) mg/dL Creatinine 0.87 (0.52-1.04) mg/dL Glucose 144 H (74-99) mg/dL Calcium 8.7 (8.4-10.2) mg/dL AST 51 H (14-36) U/L ALT 26 (4-34) U/L Alkaline Phosphatase 125 (38-126) U/L Total Protein 5.7 L (6.3-8.2) g/dL Albumin 2.8 L (3.5-5.0) g/dL Calcium panel 08/07/21 Range/Units 07:35 Calcium 8.7 (8.4-10.2) mg/dL Phosphorus 3.5 (2.5-4.5) mg/dL Albumin 2.8 L (3.5-5.0) g/dL Pituitary panel 08/07/21 Range/Units 07:35 Sodium 140 (137-145) mmol/L Potassium 4.4 (3.5-5.1) mmol/L Chloride 113 H (98-107) mmol/L Carbon Dioxide 16 L (22-30) mmol/L BUN 26 H (7-17) mg/dL Creatinine 0.87 (0.52-1.04) mg/dL Glucose 144 H (74-99) mg/dL Calcium 8.7 (8.4-10.2) mg/dL Adrenal panel 08/07/21 Range/Units 07:35 Sodium 140 (137-145) mmol/L Potassium 4.4 (3.5-5.1) mmol/L Chloride 113 H (98-107) mmol/L Carbon Dioxide 16 L (22-30) mmol/L BUN 26 H (7-17) mg/dL Creatinine 0.87 (0.52-1.04) mg/dL Glucose 144 H (74-99) mg/dL Calcium 8.7 (8.4-10.2) mg/dL Total Bilirubin 1.4 H (0.2-1.3) mg/dL AST 51 H (14-36) U/L ALT 26 (4-34) U/L Alkaline Phosphatase 125 (38-126) U/L Total Protein 5.7 L (6.3-8.2) g/dL Albumin 2.8 L (3.5-5.0) g/dL
[2021-08-07 11:24] LABS: Glucose,Whole Blood 156 mg/dL (70-110)
[2021-08-07 11:52] LABS: Chol/HDL Ratio 3.38 Ratio; LDL Cholesterol,Calculated 45.4 mg/dL (0.0-131.0)
[2021-08-07] MEDS: FERROUS SULFATE 325 MG TAB PO SCH (11:59)
--- NOTE | 2021-08-07 14:34 | P.PN ---
Subjective Progress Note Date: 08/07/21 (delayed charting seen 2 times first at approx 0830) Principal diagnosis: fall Patient is an 80-year-old female with type II DM, Parkinson's, and hypertension who presents to the emergency room after a fall. Shoulder CTs in the emergency room revealed bilateral shoulder fractures as well as a left distal femur fracture. Chest x-ray was unremarkable. Laboratory evaluation was remarkable for WBC count of 19.2, troponin 0.155, magnesium 1.3, glucose of 218. Her tropo sanchez was elevated. We were asked to consult for cardiac risk stratification. Her echo was done which showed a preserved ejection fraction but moderate pulm HTN. She underwent IM nailing on 08/02/21. She developed some altered mental status post surgery. Patient seen and examined at bedside. Awake and alert X 3. Discussed with family results of MRI all questions answered to the best of my availability. She denies pain, wants to eat. Family at bedside updated extensively. All questions answered. General: nontoxic, no distress, appears at stated age Derm: warm, dry, bilateral arm slings Head: atraumatic, normocephalic, symmetric Eyes: EOMI, no lid lag, anicteric sclera Mouth: no lip lesion, mucus membranes dry Cardiovascular: S1S2 reg, no murmur, positive posterior tibial pulse bilateral, Lungs: Coarse breath sounds bilateral, no rhonchi, no rales , no accessory muscle use Abdominal: soft, nontender to palpation, no guarding, no appreciable organomegaly Neuro: Answering questions appropriately, pupils equal round reactive to light Psych: Somnolent, however when awake she is alert and oriented 3, she appears to have an appropriate affect. Assessment/plan: Patient is an 80-year-old female admitted for bilateral humerus fractures and left distal femoral fracture s/p ORIF Acute Right frontal and parietal lobe infacts with hemorrhage seen on MRI, bilateral multifocal hemorrhagic acute luncar infarcts Dysphagia - patient did not want feeding tube, see ACP conversation, worked with speech and did okay with nectar thick and pureed diet, still with some - D/W neurology resume Aspirin - statin - Frequent neuro check - Possible need for CONSTANTINO, await cardio eval - Lipitor, Cholesterol profile reviewed without significant elevation. DM 2 - levemir - SSI - follow BS - A1C 6.9 Constipation, improved - bowel regiment Klebsiella UTI, POA - on rocephin D # 5/7 Elevated troponin with without signs of chest pain -Likely secondary to stress versus cardiac contusion from fall -Echocardiogram,normal -Cardio Parkinson's disease - sinemet Moderate pulm HTN on echo - outpatient follow-up Iron deficiency anemia with acute blood loss - s/p 1 unit pRBC - follow CBC - ferrous sulfate Leukocytosis, resolved -Likely stress-induced TIKI, resolved Hyperkalemia, resolved Hypomagnesemia, resolved Once medical work-up completed plan is for [place]. Active Medications Generic Name Dose Route Start Last Admin Trade Name Freq PRN Reason Stop Dose Admin Acetaminophen 650 mg 08/03/21 15:45 08/04/21 19:28 Acetaminophen Tab 325 Mg Tab PO 650 mg Q6HR PRN Administration Fever and/ or Pain Aspirin 162 mg 08/08/21 09:00 Aspirin 81 Mg PO DAILY [facility] Atorvastatin Calcium 40 mg 08/01/21 09:00 08/07/21 08:29 Atorvastatin 40 Mg Tab PO Not Given DAILY EDENILSON Carbidopa/Levodopa 1 each 08/01/21 14:00 08/06/21 14:56 Carbidopa-Levodopa 25-100 Mg 1 Each Tab PO 1 each DAILY@1400 EDENILSON Administration Ferrous Sulfate 325 mg 08/03/21 12:30 08/07/21 11:59 Ferrous Sulfate 325 Mg Tab PO Not Given W/LUNCH EDENILSON Hydromorphone HCl 0.125 mg 08/02/21 11:07 Hydromorphone 0.5 Mg/0.5 Ml Syringe IVP Q3HR PRN Pain Scale 1 to 3 Hydromorphone HCl 0.25 mg 08/02/21 11:07 Hydromorphone 0.5 Mg/0.5 Ml Syringe IVP Q3HR PRN Pain Scale 4 to 6 Hydromorphone HCl 0.5 mg 08/02/21 11:07 08/03/21 03:43 Hydromorphone 0.5 Mg/0.5 Ml Syringe IVP 0.5 mg Q3HR PRN Administration Pain Scale 7 to 10 Ceftriaxone Sodium 1 gm/ 50 mls @ 100 mls/hr 08/03/21 16:00 08/07/21 10:28 Sodium Chloride IVPB 100 mls/hr Q24HR EDENILSON Administration Protocol Sodium Chloride 1,000 mls @ 100 mls/hr 08/04/21 10:00 08/06/21 18:04 Saline 0.9% IV 100 mls/hr .Q10H EDENILSON Administration Insulin Aspart 0 unit 08/01/21 07:30 08/07/21 12:09 Insulin Aspart (Novolog) 100 Unit/Ml Vial SQ Not Given ACHS [facility] Protocol Insulin Detemir 20 unit 08/06/21 21:00 08/06/21 21:27 Insulin Detemir (Levemir) 100 Unit/Ml Syr SQ Not Given HS [facility] Labetalol HCl 10 mg 08/06/21 18:47 08/07/21 12:01 Labetalol 5 Mg/Ml Vial Mdv IVP 08/07/21 18:48 5 mg Q1HR PRN Administration Hypertension Naloxone HCl 0.2 mg 07/31/21 21:19 Naloxone 0.4 Mg/Ml 1 Ml Vial IV Q2M PRN Opioid Reversal Ondansetron HCl 4 mg 07/31/21 21:19 08/01/21 02:20 Ondansetron 4 Mg/2 Ml Vial IVP 4 mg Q8HR PRN Administration Nausea And Vomiting Pantoprazole Sodium 40 mg 08/06/21 18:45 08/07/21 10:28 Pantoprazole 40 Mg/10 Ml Vial IVP 40 mg DAILY EDENILSON Administration Objective - Vital Signs Vital signs: Vital Signs Temp 96.4 F L 08/07/21 12:00 Pulse 92 08/07/21 12:00 Resp 18 08/07/21 04:00 BP 227/95 08/07/21 12:00 Pulse Ox 98 08/07/21 12:00 FiO2 Intake & Output 08/06/21 08/07/21 08/07/21 18:59 06:59 18:59 Intake Total 1200 120 Output Total 1300 500 775 Balance -100 -500 -655 Weight 90.718 kg Intake: Intake, IV Titration 1200 Amount Sodium Chloride 0.9% 1, 1200 000 ml @ 999 mls/hr IV . Q1H1M ONE Rx#:[id number] Oral 120 Output: Urine 1300 500 775 Other: Voiding Method Indwelling Catheter Indwelling Catheter Indwelling Catheter # Bowel Movements 1 - Labs CBC & Chem 7: 08/07/21 07:35 08/07/21 07:35 Labs: Abnormal Lab Results - Last 24 Hours (Table) 08/06/21 08/06/21 08/07/21 Range/Units 16:55 20:12 06:11 RBC (3.80-5.40) m/uL Hgb (11.4-16.0) gm/dL Hct (34.0-46.0) % RDW (11.5-15.5) % Chloride (98-107) mmol/L Carbon Dioxide (22-30) mmol/L BUN (7-17) mg/dL Glucose (74-99) mg/dL POC Glucose (mg/dL) 130 H 144 H 143 H (70-110) mg/dL Total Bilirubin (0.2-1.3) mg/dL AST (14-36) U/L Total Protein (6.3-8.2) g/dL Albumin (3.5-5.0) g/dL HDL Cholesterol (40.00-60.00) mg/dL 08/07/21 08/07/21 08/07/21 Range/Units 07:35 07:35 11:22 RBC 3.15 L (3.80-5.40) m/uL Hgb 9.0 L (11.4-16.0) gm/dL Hct 28.5 L (34.0-46.0) % RDW 16.6 H (11.5-15.5) % Chloride 113 H (98-107) mmol/L Carbon Dioxide 16 L (22-30) mmol/L BUN 26 H (7-17) mg/dL Glucose 144 H (74-99) mg/dL POC Glucose (mg/dL) 156 H (70-110) mg/dL Total Bilirubin 1.4 H (0.2-1.3) mg/dL AST 51 H (14-36) U/L Total Protein 5.7 L (6.3-8.2) g/dL Albumin 2.8 L (3.5-5.0) g/dL HDL Cholesterol 30.20 L (40.00-60.00) mg/dL
--- NOTE | 2021-08-07 14:46 | P.PN ---
Progress Note - Text Progress Note Date: 08/07/21 Advanced Care Planning: Diagnoses: Dysphagia CVA Multiple fractures Discussion: Person(s) present and participating in discussion: Son, daugther, [id number] Summary: Discussed with multiple family members at length and patient. She does not want a feeding tube. She is aware that she is at right risk of aspiration which could lead to aspiration and choking. They are aware this can lead to PNA and . She does not want a feeding tube and is aware for some benefits. She also wants to be a do not ventilate or resuscitate. This has been noted in the computer. She wishes to proceed with the safest oral diet which is nectar think and pured's. She still will have a risk of aspiration and she is willing to take this to maintain her quality of life. A total of 22 minutes of face to face time was spent discussing advanced care planning.
[2021-08-07] MEDS ORDERED: LABETALOL 5 MG/ML VIAL MDV IVP PRN (14:53)
[2021-08-07] MEDS ORDERED: METOPROLOL TARTRATE 12.5 MG TAB PO STA (14:57)
[2021-08-07] MEDS: CARBIDOPA-LEVODOPA 25-100 MG 1 EACH TAB PO SCH (15:04)
[2021-08-07 16:14] LABS: Glucose,Whole Blood 169 mg/dL (70-110)
[2021-08-07] MEDS: SODIUM CHLORIDE 0.9% 1,000 ML IV SCH (16:25)
[2021-08-07 20:25] LABS: Glucose,Whole Blood 182 mg/dL (70-110)
[2021-08-07] MEDS: METOPROLOL TARTRATE 12.5 MG TAB PO SCH (20:47)
[2021-08-07] MEDS: INSULIN DETEMIR (LEVEMIR) 100 UNIT/ML SYR SQ SCH (20:52)
[2021-08-08 02:57] VITALS: TEMP 98.2
[2021-08-08] MEDS: SODIUM CHLORIDE 0.9% 1,000 ML IV SCH ×2 (03:31→05:18)
[2021-08-08 06:10] LABS: Glucose,Whole Blood 189 mg/dL (70-110)
[2021-08-08] MEDS: INSULIN ASPART (NovoLOG) 100 UNIT/ML VIAL SQ SCH ×2 (06:37→12:39)
[2021-08-08] MEDS: PANTOPRAZOLE 40 MG/10 ML VIAL IVP SCH (08:33)
[2021-08-08 08:34] LABS: Anisocytosis Slight; HGB 8.3 gm/dL (11.4-16.0); Hypochromasia Slight; MCH 28.2 pg (25.0-35.0); MCHC 32.1 g/dL (31.0-37.0); MCV 87.8 fL (80.0-100.0); Mean Platelet Volume 7.7; Platelet Count 237 k/uL (150-450); RBC 2.96 m/uL (3.80-5.40); WBC 9.4 k/uL (3.8-10.6)
[2021-08-08] MEDS: METOPROLOL TARTRATE 12.5 MG TAB PO SCH (08:34)
[2021-08-08] MEDS: ATORVASTATIN 40 MG TAB PO SCH (08:34)
[2021-08-08] MEDS: FERROUS SULFATE 325 MG TAB PO SCH (08:34)
[2021-08-08 08:45] LABS: Calcium 8.5 mg/dL (8.4-10.2); Magnesium 1.8 mg/dL (1.6-2.3); Phosphorus 3.2 mg/dL (2.5-4.5); Potassium 4.4 mmol/L (3.5-5.1)
[2021-08-08 08:49] VITALS: RESP 16
[2021-08-08] MEDS ORDERED: ASPIRIN 81 MG PO SCH (09:00)
--- NOTE | 2021-08-08 10:14 | P.DS ---
Providers Date of admission: 07/31/21 21:19 Expected date of discharge: 08/08/21 Attending physician: Mat Walsh MD Consults: 07/31/21 21:19 Consult Physician Routine Consulting Provider: Hernan Wilson Consult Reason/Comments: Medical clearance for surgery Do you want consulting provider notified?: Already Contacted 08/04/21 08:45 Consult Physician Routine Consulting Provider: Mateusz Ramirez Consult Reason/Comments: altered mentation Do you want consulting provider notified?: Yes 08/05/21 11:26 Consult Physician Routine Consulting Provider: Ina Yoo Consult Reason/Comments: hip / shoulder fx Do you want consulting provider notified?: Already Contacted Primary care physician: Poornima Londono MD Hospital Course: Acute Right frontal and parietal lobe infacts with hemorrhage seen on MRI, bilateral multifocal hemorrhagic acute luncar infarcts Dysphagia DM 2 Constipation, improved Klebsiella UTI, POA Elevated troponin with without signs of chest pain Parkinson's disease Moderate pulm HTN on echo Iron deficiency anemia with acute blood loss Leukocytosis, resolved TIKI, resolved Hyperkalemia, resolved Hypomagnesemia, resolved Patient is an 80-year-old female with type II DM, Parkinson's, and hypertension who presents to the emergency room after a fall. Shoulder CTs in the emergency room revealed bilateral shoulder fractures as well as a left distal femur fracture. Chest x-ray was unremarkable. Laboratory evaluation was remarkable for WBC count of 19.2, troponin 0.155, magnesium 1.3, glucose of 218. Her troponin was elevated. We were asked to consult for cardiac risk stratification. Her echo was done which showed a preserved ejection fraction but moderate pulm HTN. She underwent IM nailing on 08/02/21. She developed some altered mental status post surgery. Neurology was consulted and recommended MRI of the brain, which showed right frontal watershed stroke and right parietal CVA with hemorrhagic conversion, as well as bilateral lacunar CVAs with hemorrhagic conversion. Patients echo showed normal EF, no WMA, elevated RVSP. Carotid doppler was negative for hemodynamically significant stenosis. Pt was resumed on ASA after discussion with neurology. She was seen by ST for evaluation of swallow and was demonstrated to be high risk for aspiration given mentation changes following strokes. However, after GoC discussion, patient decided that she would prefer to take on risk of aspiration as long as she could attempt the diet with the least aspiration risk - this is documented in my colleague's note from 08/07. Patient also indicated her wish to be DNR/DNI. Pt was discharged to rehab with goals to improve mobility and swallow. She will f/u with PCP, ortho, and neurology I spent 42 minutes coordinating this complex discharge. Gen: awake, alert HEENT: normocephalic, atraumatic, good hearing acuity, moist mucous membranes Resp: good air exchange, breathing comfortably with no accessory muscle use CVS: good distal perfusion x 4, GI: soft, NTTP, ND : no SPT, no CVAT, horvath catheter not present MSK: no pitting edema, no clubbing Neuro: Answering questions appropriately, pupils equal round reactive to light Psych: cooperative, euthymic mood Patient Condition at Discharge: Good Plan - Discharge Summary New Discharge Prescriptions: New Acetaminophen Tab [Tylenol] 650 mg PO Q6H PRN #30 tab PRN Reason: Pain Ferrous Sulfate [Iron (65 MG Elemental)] 325 mg PO W/LUNCH tab Metoprolol Tartrate [Lopressor] 12.5 mg PO BID #60 tab Aspirin 162 mg PO DAILY tab Atorvastatin [Lipitor] 40 mg PO DAILY tab Continue Insulin Degludec [Tresiba Flextouch U-100 Pen] 24 - 30 units SQ HS Carbidopa-Levodopa 25-100 mg [Sinemet 25-100 mg] 1 tab PO DAILY@1400 Calcium Carbonate [Calcium] 600 mg PO PC-SUPPER sitaGLIPtin [Januvia] 50 mg PO PC-SUPPER metFORMIN HCL [Glucophage] 500 mg PO PC-BID Vitamin B Complex 1 cap PO DAILY Cholecalciferol [Vitamin D3 (25 Mcg = 1000 Iu)] 25 mcg PO PC-SUPPER Ascorbic Acid [Vitamin C] 500 mg PO DAILY Glimepiride [Amaryl] 4 mg PO W/BRKFST Omeprazole 20 mg PO DAILY Fish Oil/Dha/Epa [Fish Oil 1,200 mg Fish Oil] 1 cap PO PC-SUPPER Ascorbic Acid [Vitamin C] 500 mg PO DAILY Discontinued Losartan Potassium 100 mg PO AC-BRKFST Spironolactone [Aldactone] 25 mg PO DAILY Discharge Medication List Ascorbic Acid [Vitamin C] 500 mg PO DAILY 04/17/20 [History] Calcium Carbonate [Calcium] 600 mg PO PC-SUPPER 04/17/20 [History] Carbidopa-Levodopa 25-100 mg [Sinemet 25-100 mg] 1 tab PO DAILY@1400 04/17/20 [History] Cholecalciferol [Vitamin D3 (25 Mcg = 1000 Iu)] 25 mcg PO PC-SUPPER 04/17/20 [History] Glimepiride [Amaryl] 4 mg PO W/BRKFST 04/17/20 [History] Insulin Degludec [Tresiba Flextouch U-100 Pen] 24 - 30 units SQ HS 04/17/20 [History] Omeprazole 20 mg PO DAILY 04/17/20 [History] Vitamin B Complex 1 cap PO DAILY 04/17/20 [History] metFORMIN HCL [Glucophage] 500 mg PO PC-BID 04/17/20 [History] sitaGLIPtin [Januvia] 50 mg PO PC-SUPPER 04/17/20 [History] Ascorbic Acid [Vitamin C] 500 mg PO DAILY 07/31/21 [History] Fish Oil/Dha/Epa [Fish Oil 1,200 mg Fish Oil] 1 cap PO PC-SUPPER 07/31/21 [History] Acetaminophen Tab [Tylenol] 650 mg PO Q6H PRN #30 tab 08/06/21 [Rx] Aspirin 162 mg PO DAILY tab 08/08/21 [Rx] Atorvastatin [Lipitor] 40 mg PO DAILY tab 08/08/21 [Rx] Ferrous Sulfate [Iron (65 MG Elemental)] 325 mg PO W/LUNCH tab 08/08/21 [Rx] Metoprolol Tartrate [Lopressor] 12.5 mg PO BID #60 tab 08/08/21 [Rx] Follow up Appointment(s)/Referral(s): Ina Yoo DO [Doctor of Osteopathic Medicine] - 2 Weeks Poornima Londono MD [Primary Care Provider] - 1-2 days Activity/Diet/Wound Care/Special Instructions: Weight bear as tolerated on left leg. Up with assistance. Fall precautions. Keep Opsite dressings intact for 7 days. Nonweightbearing to bilateral upper extremities. Slings for comfort and support when out of bed only. May remove when in bed to prevent elbow stiffness. Physical therapy for gait and balance training. Discharge Disposition: TRANSFER TO SNF/ECF
[2021-08-08 11:37] LABS: Glucose,Whole Blood 209 mg/dL (70-110)
[2021-08-08] MEDS: CARBIDOPA-LEVODOPA 25-100 MG 1 EACH TAB PO SCH (12:38)
[2021-08-08 12:45] VITALS: BP 107/78; PULSE 84
[2021-08-08 13:36] VITALS: BMI 41.9
--- NOTE | 2021-08-08 15:00 | P.PN ---
Subjective Progress Note Date: 08/07/21 Patient was seen for a follow-up. Patient's daughter was present today. Patient denies headache. Patient states she feels better. Her vision is fine. Nothing is hurting at this time. Patient apparently lives with Katie. Patient tripped while going to a restaurant and fell. She was supposed to use walker, but she does not use it often. Patient's daughter states she is "stubborn". Patient clinically not much change as compared to yesterday. Per daughter her eyes don't follow up. She is talking a little more but has to think and takes time. Objective - Vital Signs Vital signs: Vital Signs Temp 96.5 F L 08/07/21 16:00 Pulse 80 08/07/21 16:00 Resp 22 08/07/21 16:00 BP 127/60 08/07/21 16:30 Pulse Ox 98 08/07/21 16:00 FiO2 Intake & Output 08/07/21 08/07/21 08/08/21 06:59 18:59 06:59 Intake Total 246 Output Total 500 1050 Balance -500 -804 Intake: Oral 246 Output: Urine 500 1050 Other: Voiding Method Indwelling Catheter Indwelling Catheter - Exam Patient is alert and awake, her mentation has improved. She is more quickly on swing questions. Speech is clear with no aphasia. Cranial nerves significant f or right gaze preference. She has some restriction of gaze to the left, but does pass midline to the left with strong stimulus. Patient has left visual field deficit. She has left facial droop. Shoulder shrug cannot be tested. Tongue protrudes to the midline. Her hospital supervisor is 4 on the right, 4-left. Proximally strength could not be tested. Patient wiggle toes. Patient has decreased sensations on the left side of the body. Patient's reflexes are diminished and plantar is up on the right, flat on the left. - Labs CBC & Chem 7: 08/08/21 07:44 08/08/21 07:44 Labs: Abnormal Lab Results - Last 24 Hours (Table) 08/07/21 08/07/21 08/07/21 Range/Units 06:11 07:35 07:35 RBC 3.15 L (3.80-5.40) m/uL Hgb 9.0 L (11.4-16.0) gm/dL Hct 28.5 L (34.0-46.0) % RDW 16.6 H (11.5-15.5) % Chloride 113 H (98-107) mmol/L Carbon Dioxide 16 L (22-30) mmol/L BUN 26 H (7-17) mg/dL Glucose 144 H (74-99) mg/dL POC Glucose (mg/dL) 143 H (70-110) mg/dL Total Bilirubin 1.4 H (0.2-1.3) mg/dL AST 51 H (14-36) U/L Total Protein 5.7 L (6.3-8.2) g/dL Albumin 2.8 L (3.5-5.0) g/dL HDL Cholesterol 30.20 L (40.00-60.00) mg/dL 08/07/21 08/07/21 08/07/21 Range/Units 11:22 16:12 20:24 RBC (3.80-5.40) m/uL Hgb (11.4-16.0) gm/dL Hct (34.0-46.0) % RDW (11.5-15.5) % Chloride (98-107) mmol/L Carbon Dioxide (22-30) mmol/L BUN (7-17) mg/dL Glucose (74-99) mg/dL POC Glucose (mg/dL) 156 H 169 H 182 H (70-110) mg/dL Total Bilirubin (0.2-1.3) mg/dL AST (14-36) U/L Total Protein (6.3-8.2) g/dL Albumin (3.5-5.0) g/dL HDL Cholesterol (40.00-60.00) mg/dL Assessment and Plan Assessment: * Acute ischemic stroke bilateral, right hemispheric region >> left hemispheric region * Altered mental status, likely due to toxic metabolic encephalopathy and CVA. Reasons multifactorial including acute pain, and being on pain medication * Klebsiella oxytoca UTI, on Rocephin. * Anemia * Status post fall, with bilateral shoulder and left hip fracture. * Obesity Plan: * Patient has acute ischemic stroke, which appears embolic in nature. Rule out cardiac source. Cardiology is already in board. Patient's family declined CONSTANTINO. I informed them that CONSTANTINO will identify any potential embolic source of strokes, but they believe that 2-D echo was normal and they do not want her to go through the stress of CONSTANTINO. CONSTANTINO was canceled. * Continue aspirin 300 mg rectally. * Carotid Doppler revealed no significant flow limiting stenosis. Nonvisual ization of the right vertebral artery origin probably due to patient's noncooperation. * 2-D echo revealed normal left-ventricular size and systolic function without any segmental wall motion abnormalities. EF is 55-60%. Mild concentric LVH. Normal left atrial size. * Doppler ultrasound of the lower extremities limited study but negative for DVT. * B12 1958, folate 18, MMA 0.21. Her TSH is normal 0.924 * Treatment of UTI and anemia as per IM. * Hemoglobin A1c 6.9, lipid panel with cholesterol 126, LDL 56, HDL 51 triglycerides 90. * Avoid opiates, narcotics, sedatives. * Continue Lovenox for DVT prophylaxis. * Neurologically clear. MRI brain reported: Wedge-shaped acute infarct right frontal lobe anterior watershed region and larger hemorrhagic infarct right parietal lobe posterior watershed region with additional bilateral multifocal hemorrhagic acute lacunar infarcts noted. Background mild to moderate diffuse cerebral atrophy and moderate to severe chronic small vessel ischemic change. I personally reviewed MRI, I agree with the findings. No significant hemorrhage however noticed. MRI of the cervical spine revealed multilevel spondylolisthesis and degenerative changes of the cervical spine. There is slight grade 1 retrolisthesis C5 on C6, grade 1 anterolisthesis C7 on T1 and slight grade 1 anterolisthesis T1 and T2. No significant central spinal stenosis. The cervical and upper thoracic spinal cord is normal in caliber and signal. I personally reviewed MRI of the cervical spine and agree with the findings. CT head was performed to evaluate for any hemorrhagic conversion. Revealed evolving right frontal and parietal lobe infarcts. Blood products seen on the MRI not apparent on this study. I personally reviewed CT head and agree with mac seymour findings.
== END 2021-08-08 17:00 | DRG 480 ==
LOC: EC 18:46 → 4SSUR 21:19 → 5NMEDONC 21:55 → 3SCARD 08-06 20:45
PROVIDERS: ADMIT Internal Medicine; ATTEND Internal Medicine
DX: S72.352A Displaced comminuted fracture of shaft of left femur, initial encounter for closed fracture (principal); G92.8 Other toxic encephalopathy; I61.9 Nontraumatic intracerebral hemorrhage, unspecified; E43 Unspecified severe protein-calorie malnutrition; I63.81 Other cerebral infarction due to occlusion or stenosis of small artery; Z68.41 Body mass index [BMI] 40.0-44.9, adult; N17.9 Acute kidney failure, unspecified; D62 Acute posthemorrhagic anemia; S42.291A Other displaced fracture of upper end of right humerus, initial encounter for closed fracture; S42.202A Unspecified fracture of upper end of left humerus, initial encounter for closed fracture; N39.0 Urinary tract infection, site not specified; Z16.19 Resistance to other specified beta lactam antibiotics; Z16.11 Resistance to penicillins; I27.20 Pulmonary hypertension, unspecified; G20 Parkinson's disease; E11.9 Type 2 diabetes mellitus without complications; E66.9 Obesity, unspecified; B96.1 Klebsiella pneumoniae [K. pneumoniae] as the cause of diseases classified elsewhere; Z66 Do not resuscitate; Z79.4 Long term (current) use of insulin; Z20.822 Contact with and (suspected) exposure to COVID-19; E83.42 Hypomagnesemia; I10 Essential (primary) hypertension; R13.10 Dysphagia, unspecified; R29.810 Facial weakness; R47.81 Slurred speech; E87.5 Hyperkalemia; M43.12 Spondylolisthesis, cervical region; K59.00 Constipation, unspecified; E87.70 Fluid overload, unspecified; R77.8 Other specified abnormalities of plasma proteins; Z79.84 Long term (current) use of oral hypoglycemic drugs; Z79.899 Other long term (current) drug therapy; Z71.3 Dietary counseling and surveillance; W01.0XXA Fall on same level from slipping, tripping and stumbling without subsequent striking against object, initial encounter; Y92.511 Restaurant or cafe as the place of occurrence of the external cause; Z88.2 Allergy status to sulfonamides; Z88.8 Allergy status to other drugs, medicaments and biological substances; Z88.6 Allergy status to analgesic agent; Z91.040 Latex allergy status; Z88.5 Allergy status to narcotic agent; Z91.013 Allergy to seafood
CPT/HCPCS: 36410; 36415; 70450; 70551; 71045; 72141; 73502; 76770; 76937; 80048; 80053; 80061; 81001; 82140; 82550; 82607; 82728; 82746; 83036; 83540; 83550; 83735; 83921; 84100; 84443; 84484; 85025; 85027; 85610; 85730; 86850; 86900; 86901; 86920; 87077; 87086; 87186; 87635; 93005; 93306; 93880; 93970; 96374; 96375; 96376; 99285